=== PATIENT | male | born 1945 | race Caucasian/White ===

== ENCOUNTER 2016-10-14 20:07 | Inpatient (IN) | payer BC, MEDICARE ==
[2016-10-14] VITALS (8 sets, daily range): BP systolic 106–162; BP diastolic 59–104; PULSE 60–97; RESP 18–57; TEMP 97.7–97.9; O2SAT 97–100
[~2016-10-14] VITALS: Ht 180.3 cm; Wt 82.0 kg
[2016-10-14] MEDS ORDERED: SODIUM CHLORID 0.9% 500 ML INJ 500 ML IV ONE (20:30)
[2016-10-14] MEDS ORDERED: SODIUM CHLORIDE 0.9% FLUSH 5 ML FLUSH IVF PRN (20:30)
[2016-10-14] MEDS ORDERED: MORPHINE SULFATE 4 MG/ML INJ IV PUSH ONE (20:30)
[2016-10-14] MEDS ORDERED: ASPIRIN 325 MG TAB PO ONE (20:30)
[2016-10-14] MEDS ORDERED: VITA60003 PO (20:32)
[2016-10-14] MEDS ORDERED: B COTAB6 PO (20:32)
[2016-10-14] MEDS ORDERED: GABA600T PO (20:32)
[2016-10-14] MEDS ORDERED: NORT25CA PO (20:32)
[2016-10-14] MEDS ORDERED: ROSU40 PO (20:33)
[2016-10-14] MEDS: NITROGLYCERIN 0.4 MG SL 25 TABS/BTL SL SCH ×2 (20:35→20:36)
--- NOTE | 2016-10-14 20:50 | RADRPT ---
EXAM DATE/TIME: 10/14/2016 20:40 [place] COMPARISON: No previous studies available for comparison. INDICATIONS : Chest pain. MEDICAL HISTORY : None. SURGICAL HISTORY : Cardiac stent. ENCOUNTER: Initial ACUITY: 1 day PAIN SCORE: 3/10 LOCATION: chest FINDINGS: A single view of the chest demonstrates the lungs to be symmetrically aerated without evidence of mas s, infiltrate or effusion. The cardiomediastinal contours are unremarkable. Osseous structures are intact. CONCLUSION: No acute disease. Ehsan Recinos MD on October 14, 2016 at 20:49 Board Certified Radiologist. This report was verified electronically.
--- NOTE | 2016-10-14 20:55 | PD ---
HPI Chief Complaint: Chest Pain Time Seen by Provider: 20:18 Travel History International Travel<30 days: No Contact w/Intl Traveler<30days: No Traveled to known affect area: No History of Present Illness HPI 71-year-old male arrives to the ER with chest pain for the past 5 hours intermittently. Onset occurred while he was walking. Quality is likely GERD. In the ER severity is July 29. There is radiation to the right arm. Approximately 15 years prior he underwent catheterization and stent was placed. He took 5 aspirin prior to ER arrival and reports it was marginally helpful temporarily. Exertional component is reported. Rest PFSH Past Medical History High Cholesterol: Yes Patient Takes Glucophage: No Herniated Disk: Yes Medical other: Yes (high sugar diet controlled) Neurologic: Yes (peripheral neuropathy) Myocardial Infarction: Yes (2004) Past Surgical History Other Surgery: Yes (cardiac stent 10 yrs ago) Social History Alcohol Use: No Tobacco Use: No Allergies-Medications (Allergen,Severity, Reaction): Coded Allergies: No Known Allergies (Unverified , 10/14/16) Reported Meds & Prescriptions Reported Meds & Active Scripts Active Reported Crestor (Rosuvastatin Calcium) 40 Mg Tab 40 Mg PO DAILY Vitamin E (Vitamin E (Topical)) 100 Unit/Gm Cre 100 Mg PO B Complete (B-Complex W/Biotin & Folic Acid) 1 Tab 1 Tab PO DAILY Gabapentin 600 Mg Tab 600 Mg PO TID pt taking 400 day can take up to 4000 daily Nortriptyline (Nortriptyline HCl) 25 Mg Cap 25 Mg PO BID Review of Systems Except as stated in HPI: all other systems reviewed are Neg Physical Exam Narrative GENERAL: WNWD 71 yo M, NAD, speaking full sentences SKIN: Warm and dry. HEAD: Atraumatic. Normocephalic. EYES: Pupils equal and round. No scleral icterus. No injection or drainage. ENT: No nasal bleeding or discharge. Mucous membranes pink and moist. NECK: Trachea midline. No JVD. CARDIOVASCULAR: Regular rate and rhythm. RESPIRATORY: No accessory muscle use. Clear to auscultation. Breath sounds equal bilaterally. GASTROINTESTINAL: Abdomen soft, non-tender, nondistended. Hepatic and splenic margins not palpable. MUSCULOSKELETAL: Extremities without clubbing, cyanosis, or edema. No obvious deformities. NEUROLOGICAL: Awake and alert. No obvious cranial nerve deficits. Motor grossly within normal limits. Five out of 5 muscle strength in the arms and legs. Normal speech. PSYCHIATRIC: Appropriate mood and affect; insight and judgment normal. Data Data Last Documented VS Vital Signs Date Time Temp Pulse Resp B/P Pulse Ox O2 Delivery O2 Flow Rate FiO2 10/14/16 22:08 64 18 157/91 98 10/14/16 21:34 Nasal Cannula 3 10/14/16 20:16 97.7 Orders Electrocardiogram (10/14/16 20:18) Basic Metabolic Panel (Bmp) (10/14/16 20:18) Ckmb (Isoenzyme) Profile (10/14/16 20:18) Complete Blood Count With Diff (10/14/16 20:18) Magnesium (Mg) (10/14/16 20:18) Prothrombin Time / Inr (Pt) (10/14/16 20:18) Act Partial Throm Time (Ptt) (10/14/16 20:18) Troponin I (10/14/16 20:18) Chest, Single Ap (10/14/16 20:18) Ecg Monitoring (10/14/16 20:18) Bilateral Bp Monitoring (10/14/16 20:18) Iv Access Insert/Monitor (10/14/16 20:18) Oximetry (10/14/16 20:18) Oxygen Administration (10/14/16 20:18) Aspirin (Aspirin) (10/14/16 20:30) Morphine Inj (Morphine Inj) (10/14/16 20:30) Sodium Chloride 0.9% Flush (Ns Flush) (10/14/16 20:30) Nitroglycerin Sl (Nitrostat Sl) (10/14/16 20:30) Sodium Chlorid 0.9% 500 Ml Inj (Ns 500 M (10/14/16 20:30) Ondansetron Inj (Zofran Inj) (10/14/16 21:45) Al-Mag Hy-Si 40-40-4 Mg/Ml Liq (Mag-Al P (10/14/16 21:45) Lidocaine 2% Viscous (Xylocaine 2% Visco (10/14/16 21:45) CKMB (10/14/16 19:40) CKMB% (10/14/16 19:40) Heparin Infusion RONY.Q1H (10/14/16 22:28) Heparin Inj (Heparin Inj) (10/14/16 22:30) Heparin Inj (Heparin Inj) (10/15/16 04:30) Heparin Inj (Heparin Inj) (10/15/16 04:30) Heparin-D5w Inj (Heparin-D5w Inj) (10/14/16 22:30) Cbc No Diff, Includes Plts (10/17/16 06:00) Act Partial Throm Time (Ptt) (10/15/16 05:28) Occult Blood (Hemoccult) Stool (10/14/16 22:28) Tirofiban Bolus Inj (Aggrastat Bolus Inj (10/14/16 22:45) Tirofiban Infusion Inj (Aggrastat Infusi (10/14/16 22:40) ^ Notify Dr: Other (10/14/16 22:40) Complete Blood Count With Diff (10/16/16 06:00) Complete Blood Count With Diff (10/17/16 06:00) Complete Blood Count With Diff (10/15/16 02:40) Admit Order (Ed Use Only) (10/14/16 23:02) Labs Laboratory Tests Test 10/14/16 19:40 White Blood Count 9.9 TH/MM3 Red Blood Count 4.65 MIL/MM3 Hemoglobin 14.0 GM/DL Hematocrit 41.7 % Mean Corpuscular Volume 89.7 FL Mean Corpuscular Hemoglobin 30.0 PG Mean Corpuscular Hemoglobin 33.5 % Concent Red Cell Distribution Width 14.0 % Platelet Count 313 TH/MM3 Mean Platelet Volume 7.4 FL Neutrophils (%) (Auto) 63.3 % Lymphocytes (%) (Auto) 20.4 % Monocytes (%) (Auto) 11.7 % Eosinophils (%) (Auto) 4.1 % Basophils (%) (Auto) 0.5 % Neutrophils # (Auto) 6.3 TH/MM3 Lymphocytes # (Auto) 2.0 TH/MM3 Monocytes # (Auto) 1.2 TH/MM3 Eosinophils # (Auto) 0.4 TH/MM3 Basophils # (Auto) 0.0 TH/MM3 CBC Comment DIFF FINAL Differential Comment Prothrombin Time 10.6 SEC Prothromb Time International 1.0 RATIO Ratio Activated Partial 25.6 SEC Thromboplast Time Sodium Level 138 MEQ/L Potassium Level 4.2 MEQ/L Chloride Level 102 MEQ/L Carbon Dioxide Level 27.6 MEQ/L Anion Gap 8 MEQ/L Blood Urea Nitrogen 20 MG/DL Creatinine 1.26 MG/DL Estimat Glomerular Filtration 57 ML/MIN Rate Random Glucose 219 MG/DL Calcium Level 9.8 MG/DL Magnesium Level 2.3 MG/DL Total Creatine Kinase 115 U/L Creatine Kinase MB 2.7 NG/ML Troponin I 0.32 NG/ML MDM Medical Decision Making Medical Screen Exam Complete: Yes Emergency Medical Condition: Yes Differential Diagnosis NSTEMI, unstable angina, coronary vasospasm, PE, PTX, aortic dissection, pericarditis, myocarditis, endocarditis, PNA, esophageal disease, aneurysm, musculoskeletal etiologies, anxiety, cocaine/sympathomimetic abuse Narrative Course EKG reveals a sinus rhythm with ST depressions in the precordial leads and a morphology overall concerning for ischemia CBC & BMP Diagram 10/14/16 19:40 Troponin is 0.32 coags 10.6 / 1.0 / 25.6 Heparin drip started. Aggrastat drip started. Case discussed with Dr. Beyer of cardiology. Pt to stay in cardiac care center. d/w Dr Bishop. Diagnosis Primary Impression: NSTEMI (non-ST elevated myocardial infarction) Admitting Information Admitting Physician Requests: Admit Jaciel Vigil MD Oct 14, 2016 20:55
[2016-10-14 21:11] LABS: AUTOMATED NEUTROPHIL # 6.3 TH/MM3 (1.8-7.7); BASOPHIL % 0.5 % (0.0-2.0); EOSINOPHIL # 0.4 TH/MM3 (0-0.4); EOSINOPHIL % 4.1 % (0.0-4.0); HEMATOCRIT 41.7 % (39.0-51.0); HEMO FLAGS DIFF FINAL; LYMPH % 20.4 % (9.0-44.0); MEAN CELL VOLUME 89.7 FL (80.0-100.0); MEAN CORPUSCULAR HGB CONC 33.5 % (32.0-36.0); MONO % 11.7 % (0.0-8.0); NEUT % 63.3 % (16.0-70.0); PLATELET COUNT 313 TH/MM3 (150-450); RED BLOOD COUNT 4.65 MIL/MM3 (4.50-5.90); WHITE BLOOD COUNT 9.9 TH/MM3 (4.0-11.0)
[2016-10-14 21:23] LABS: APTT (PATIENT) 25.6 SEC (24.3-30.1); PROTHROMBIN TIME - PATIENT 10.6 SEC (9.8-11.6)
[2016-10-14] MEDS ORDERED: ALUMINUM/MAGNESIUM/SIMETH 30 ML CUP PO ONE (21:45)
[2016-10-14] MEDS ORDERED: LIDOCAINE VISCOUS 2% SOLN 15 ML UDC PO ONE (21:45)
[2016-10-14] MEDS ORDERED: ONDANSETRON HCL 4 MG/2 ML VIAL IVP ONE (21:45)
[2016-10-14 21:47] LABS: ANION GAP 8 MEQ/L (5-15); BICARBONATE 27.6 MEQ/L (21.0-32.0); BLOOD UREA NITROGEN 20 MG/DL (7-18); CHLORIDE 102 MEQ/L (98-107); GLOMERULAR FILTRATION RATE 57 ML/MIN (>89); MAGNESIUM 2.3 MG/DL (1.5-2.5); POTASSIUM 4.2 MEQ/L (3.5-5.1); SODIUM (NA) 138 MEQ/L (136-145)
[2016-10-14 21:52] LABS: CREATINE KINASE 115 U/L (39-308)
[2016-10-14 22:04] LABS: CKMB 2.7 NG/ML (0.5-3.6)
--- NOTE | 2016-10-14 22:23 | EKG ---
Date Performed: 10/14/2016 Time Performed: 20:16:13 PTAGE: 71 years EKG: Sinus rhythm PROBABLE INFERIOR MYOCARDIAL INFARCTION ST DEPRESSION, CONSIDER ISCHEMIA ABNORMAL ECG NO PREVIOUS TRACING DOCTOR: Lucas Beyer Interpretating Date/Time 10/14/2016 22:22:20
[2016-10-14] MEDS ORDERED: HEPARIN SODIUM - IV 10,000 UNITS/10 ML VIAL IV ONE (22:30)
[2016-10-14] MEDS ORDERED: HEPARIN-D5W INJ 250 ML IV SCH (22:30)
[2016-10-14] MEDS ORDERED: TIROFIBAN INFUSION INJ 250 ML IV SCH (22:40)
[2016-10-14] MEDS ORDERED: TIROFIBAN BOLUS IV ONE (22:45)
--- NOTE | 2016-10-14 23:26 | HHI.HP ---
HPI Service [facility] Primary Care Physician No Primary Care Physician Admission Diagnosis NSTEMI Diagnoses: (1) NSTEMI (non-ST elevated myocardial infarction) Diagnosis: Principal (2) Dehydration Diagnosis: Principal (3) HTN (hypertension) Diagnosis: Principal (4) DM (diabetes mellitus) Diagnosis: Principal Travel History International Travel<30 Days: No Contact w/Intl Traveler <30 Da: No Traveled to Known Affected Are: No History of Present Illness This is a 71-year-old male with a PMH of Hyperlipidemia, CAD s/p Stent 2005, Peripheral Neuropathy and DM who is brought to the ER with acute onset of chest pain during his afternoon walk. States he's had intermittent chest pain for approx 1-2 months, however chest pain today was more intense. On arrival, BP 161/85, HR 88, O2 sat 99% on RA, Afebrile. CBC essentially unremarkable. BUN 20, GFR 57, BS 219. Troponin 0.32, EKG with no acute changes. CXR with no acute findings. Dr. Beyer consulted by ER physician, recommended Heparin and Aggrastat gtt and will eval in am. Pt currently chest pain free. Review of Systems Except as stated in HPI: all other systems reviewed are Neg ROS: 14 point review of systems otherwise negative. Past Family Social History Past Medical History PMH: Hyperlipidemia, CAD s/p Stent 2005, Peripheral Neuropathy and DM Past Surgical History PAST SURGICAL HISTORY: Cardiac Stent Allergies: Coded Allergies: No Known Allergies (Unverified , 10/14/16) Family History PAST FAMILY HISTORY: Reviewed. No h/o DM or CAD Social History PAST SOCIAL HISTORY: Negative for alcohol, tobacco or drugs. Physical Exam Vital Signs Vital Signs Date Time Temp Pulse Resp B/P Pulse Ox O2 Delivery O2 Flow Rate FiO2 10/14/16 22:08 64 18 157/91 98 10/14/16 21:34 100 Nasal Cannula 3 10/14/16 21:33 60 18 134/81 100 10/14/16 20:40 98 Nasal Cannula 3 10/14/16 20:39 67 18 106/59 98 10/14/16 20:33 97 57 159/91 97 Nasal Cannula 3 10/14/16 20:20 100 Nasal Cannula 3 10/14/16 20:16 97.7 82 18 162/104 99 10/14/16 20:08 97.9 88 18 161/85 99 Physical Exam PE: GENERAL: Elderly male in no acute distress. HEENT: PERRLA, EOMI. No scleral icterus or conjunctival pallor. No lid lag or facial droop. CARDIOVASCULAR: Regular rate and rhythm. No obvious murmurs to auscultation. No chest tenderness to palpation. RESPIRATORY: No obvious rhonchi or wheezing. Clear to auscultation. Breath sounds equal bilaterally. GASTROINTESTINAL: Abdomen soft, non-tender, nondistended. BS normal. MUSCULOSKELETAL: Extremities without clubbing, cyanosis, or edema. No obvious deformities. NEUROLOGICAL: Awake, alert and oriented x4. No focal neurologic deficits. Moving both upper and lower extremities spontaneously. Laboratory Laboratory Tests Test 10/14/16 19:40 White Blood Count 9.9 Red Blood Count 4.65 Hemoglobin 14.0 Hematocrit 41.7 Mean Corpuscular Volume 89.7 Mean Corpuscular Hemoglobin 30.0 Mean Corpuscular Hemoglobin 33.5 Concent Red Cell Distribution Width 14.0 Platelet Count 313 Mean Platelet Volume 7.4 Neutrophils (%) (Auto) 63.3 Lymphocytes (%) (Auto) 20.4 Monocytes (%) (Auto) 11.7 Eosinophils (%) (Auto) 4.1 Basophils (%) (Auto) 0.5 Neutrophils # (Auto) 6.3 Lymphocytes # (Auto) 2.0 Monocytes # (Auto) 1.2 Eosinophils # (Auto) 0.4 Basophils # (Auto) 0.0 CBC Comment DIFF FINAL Differential Comment Prothrombin Time 10.6 Prothromb Time International 1.0 Ratio Activated Partial 25.6 Thromboplast Time Sodium Level 138 Potassium Level 4.2 Chloride Level 102 Carbon Dioxide Level 27.6 Anion Gap 8 Blood Urea Nitrogen 20 Creatinine 1.26 Estimat Glomerular Filtration 57 Rate Random Glucose 219 Calcium Level 9.8 Magnesium Level 2.3 Total Creatine Kinase 115 Creatine Kinase MB 2.7 Troponin I 0.32 Result Diagram: 10/14/16193910/14/161939 Assessment and Plan Problem List: (1) NSTEMI (non-ST elevated myocardial infarction) ICD Code: I21.4 Status: Acute (2) Dehydration ICD Code: E86.0 Status: Acute (3) HTN (hypertension) ICD Code: I10 Status: Acute (4) DM (diabetes mellitus) ICD Code: E11.9 Status: Acute Assessment and Plan A/P: 1. NSTEMI: Acute onset of chest pain while walking, c/o intermittent chest pain x1-2 months. Initial trop 0.32, EKG w/ no acute ischemia. Dr. Beyer consulted by ER physician, recommended Heparin/Aggrastat gtt-started in ER. Admit to [facility], telemetry, check serial cardiac enzymes. NTG/Morphine as needed. 2. Dehydration: GFR 57, BUN 20, no previous labs for comparison. IVF, repeat labs in am. 3. HTN: BP 150's systolic, no h/o HTN, start low-dose Metoprolol. Monitor BP. 4. DM: Sliding scale w/ Accu-Cheks. Check Hgb A1c. 5. DVT Prophylaxis: On Heparin/Aggrastat gtt 6. Social work for d/c planning as needed. 7. Case discussed w/ ER physician at length. Physician Certification 2 Midnight Certification Type: Admission for Inpatient Services Order for Inpatient Services The services are ordered in accordance with Medicare regulations or non- Medicare payer requirements, as applicable. In the case of services not specified as inpatient-only, they are appropriately provided as inpatient services in accordance with the 2-midnight benchmark. Estimated LOS (days): 2 days is the estimated time the patient will need to remain in the hospital, assuming treatment plan goals are met and no additional complications. Post-Hospital Plan: Not yet determined Fatoumata Bishop MD Oct 14, 2016 23:26
[2016-10-14] MEDS ORDERED: ACETAMINOPHEN 325 MG TAB PO PRN (23:30)
[2016-10-14] MEDS ORDERED: GLUCAGON 1 MG/ML VIAL OTHER PRN (23:30)
[2016-10-14] MEDS ORDERED: BISACODYL 10 MG SUPP PR PRN (23:30)
[2016-10-14] MEDS ORDERED: MORPHINE SULFATE 4 MG/ML INJ IV PRN (23:30)
[2016-10-14] MEDS ORDERED: SODIUM CHLORIDE 0.9% FLUSH 5 ML FLUSH FLUSH PRN (23:30)
[2016-10-14] MEDS ORDERED: ONDANSETRON HCL 4 MG/2 ML VIAL IVP PRN (23:30)
[2016-10-14] MEDS ORDERED: DEXTROSE 50% IN WATER 50 ML VIAL(D50) IV PUSH PRN (23:30)
[2016-10-14] MEDS: SODIUM CHLOR 0.9% 1000 ML INJ 1,000 ML IV SCH (23:41)
[2016-10-15] VITALS (16 sets, daily range): BP systolic 100–144; BP diastolic 57–92; PULSE 44–92; RESP 18–25; TEMP 97.5–98.4; O2SAT 93–99
[2016-10-15] MEDS: ACETAMINOPHEN/HYDROcodone 325 MG/5 MG TAB PO PRN (02:14)
[2016-10-15] MEDS ORDERED: PILL SPLITTER OTHER PRN (02:30)
[2016-10-15 04:09] LABS: AUTOMATED NEUTROPHIL # 7.5 TH/MM3 (1.8-7.7); BASOPHIL % 0.4 % (0.0-2.0); EOSINOPHIL # 0.3 TH/MM3 (0-0.4); EOSINOPHIL % 2.6 % (0.0-4.0); HEMO FLAGS DIFF FINAL; LYMPH % 20.2 % (9.0-44.0); LYMPHOCYTE # 2.3 TH/MM3 (1.0-4.8); MEAN CELL VOLUME 92.1 FL (80.0-100.0); MEAN CORPUSCULAR HGB CONC 32.6 % (32.0-36.0); MONO % 10.1 % (0.0-8.0); NEUT % 66.7 % (16.0-70.0); PLATELET COUNT 272 TH/MM3 (150-450); RED BLOOD COUNT 4.67 MIL/MM3 (4.50-5.90); RED CELL DISTRIBUTION WIDTH 14.1 % (11.6-17.2); WHITE BLOOD COUNT 11.3 TH/MM3 (4.0-11.0)
[2016-10-15] MEDS ORDERED: HEPARIN SODIUM - IV 10,000 UNITS/10 ML VIAL IV PRN ×2 (04:30)
[2016-10-15 04:51] LABS: APTT (PATIENT) 52.3 SEC (24.3-30.1)
[2016-10-15] MEDS ORDERED: NITROGLYCERIN 0.4 MG SL 25 TABS/BTL SL ONE (06:16)
[2016-10-15] MEDS: NITROGLYCERIN 2% OINT 1 GM PACKET TOPICAL SCH ×3 (06:30→17:14)
[2016-10-15] MEDS ORDERED: NITROGLYCERIN 2% OINT 1 GM PACKET TOPICAL PRN (06:30)
[2016-10-15] MEDS ORDERED: ALPRAZolam 0.25 MG TAB PO PRN (06:30)
[2016-10-15] MEDS: LORazepam 1 MG TAB PO PRN (06:41)
[2016-10-15] MEDS: INSULIN ASPART SUPPLEMENTAL SCALE SQ SCH ×4 (07:00→20:55)
[2016-10-15] MEDS ORDERED: SODIUM CHLORIDE 0.9% FLUSH 5 ML FLUSH FLUSH SCH (09:00)
--- NOTE | 2016-10-15 09:08 | HHI.PR ---
Subjective Remarks Follow-up non-ST elevation [place] 10/15/16-patient seen and examined, continue to experience chest pain and rated 3-4/10 in intensity; This a.m., however patient is refusing morphine.He Denies any shortness of breath Objective Vitals Vital Signs Date Time Temp Pulse Resp B/P Pulse Ox O2 Delivery O2 Flow Rate FiO2 10/15/16 07:31 18 10/15/16 07:31 18 10/15/16 05:00 98.4 76 20 113/71 99 10/15/16 00:02 98.4 72 20 144/92 99 10/14/16 23:42 73 18 144/96 98 Nasal Cannula 3 10/14/16 22:08 64 18 157/91 98 10/14/16 21:34 100 Nasal Cannula 3 10/14/16 21:33 60 18 134/81 100 10/14/16 20:40 98 Nasal Cannula 3 10/14/16 20:39 67 18 106/59 98 10/14/16 20:33 97 57 159/91 97 Nasal Cannula 3 10/14/16 20:20 100 Nasal Cannula 3 10/14/16 20:16 97.7 82 18 162/104 99 10/14/16 20:08 97.9 88 18 161/85 99 Result Diagram: 10/15/163 10/14/161939 Imaging Last Impressions Chest X-Ray 10/14/162017 Signed Impressions: Service Date/Time: Friday, October 14, 2016 20:40 - CONCLUSION: No acute disease. Ehsan Recinos MD Objective Remarks GENERAL: NAD SKIN: Warm and dry. HEAD: Normocephalic. EYES: No scleral icterus. No injection or drainage. NECK: Supple, trachea midline. No JVD or lymphadenopathy. CARDIOVASCULAR: Regular rate and rhythm without murmurs, gallops, or rubs. RESPIRATORY: Breath sounds equal bilaterally. No accessory muscle use. GASTROINTESTINAL: Abdomen soft, non-tender, nondistended. MUSCULOSKELETAL: No cyanosis, or edema. BACK: Nontender without obvious deformity. No CVA tenderness. A/P Problem List: (1) NSTEMI (non-ST elevated myocardial infarction) ICD Code: I21.4 Status: Acute (2) Dehydration ICD Code: E86.0 Status: Acute (3) HTN (hypertension) ICD Code: I10 Status: Acute (4) DM (diabetes mellitus) ICD Code: E11.9 Status: Acute Assessment and Plan 71-year-old male with 1. NSTEMI: Patient with previous stents placement, Initial trop 0.32 however second set was 4.04, EKG w/ no acute ischemia. Dr. Beyer consulted by ER physician, recommended Heparin/Aggrastat gtt-started in ER. Plan for left heart catheterization with possible PCI. Statin/BB/NTG/Morphine as needed. Check lipid profile and 2-D echo pending 2. Dehydration: GFR 57, BUN 20, no previous labs for comparison. IVF, repeat labs in am. 3. HTN: BP 150's systolic, no h/o HTN, continue low-dose Metoprolol. Monitor BP. 4. DM: Sliding scale w/ Accu-Cheks. Hgb A1c pending. 5. DVT Prophylaxis: On Heparin/Aggrastat gtt Ehsan Carpenter MD Oct 15, 2016 09:08
[2016-10-15] MEDS: METOPROLOL TARTRATE 25 MG TAB PO SCH ×2 (09:12→20:52)
[2016-10-15] MEDS: SODIUM CHLOR 0.9% 1000 ML INJ 1,000 ML IV SCH ×2 (09:12→19:17)
--- NOTE | 2016-10-15 09:13 | EKG ---
Date Performed: 10/15/2016 Time Performed: 05:40:58 PTAGE: 71 years EKG: Sinus bradycardia Prolonged QT interval Inferior infarct - age undetermined - possibly rece nt Ant/septal and lateral ST-T changes may be due to myocardial ischemia Abnormal ECG PREVIOUS TRACING : 10/14/2016 20.16 Compared to previous tracing, anterolateral ST abnormalitie s have improved, inferior infarct pattern is now more pronounced. DOCTOR: Lucas Beyer Interpretating Date/Time 10/15/2016 09:11:06
--- NOTE | 2016-10-15 11:35 | EKG ---
Date Performed: 10/15/2016 Time Performed: 10:15:02 PTAGE: 71 years EKG: Sinus rhythm with PVC(s). Inferior infarct - age undetermined Consider precordial lead misplacement Anterolateral ST-T changes may be due to myocardial ischemia Abnormal ECG PREVIOUS TRACING : 10/15/2016 05.40 No significant change from previous tracing noted. DOCTOR: Lucas Beyer Interpretating Date/Time 10/15/2016 11:33:27
[2016-10-15 11:47] LABS: BASOPHIL % 0.3 % (0.0-2.0); EOSINOPHIL % 0.4 % (0.0-4.0); HEMATOCRIT 37.3 % (39.0-51.0); HEMO FLAGS DIFF FINAL; LYMPHOCYTE # 1.3 TH/MM3 (1.0-4.8); MEAN CELL VOLUME 90.7 FL (80.0-100.0); MEAN CORPUSCULAR HEMOGLOBIN 29.8 PG (27.0-34.0); MEAN CORPUSCULAR HGB CONC 32.9 % (32.0-36.0); MONO % 9.8 % (0.0-8.0); NEUT % 75.5 % (16.0-70.0); PLATELET COUNT 274 TH/MM3 (150-450); RED BLOOD COUNT 4.11 MIL/MM3 (4.50-5.90); RED CELL DISTRIBUTION WIDTH 14.1 % (11.6-17.2); WHITE BLOOD COUNT 9.3 TH/MM3 (4.0-11.0)
[2016-10-15] MEDS ORDERED: HEPARIN-NS/PF INJ 500 ML ONE ×2 (12:05→12:12)
[2016-10-15] MEDS ORDERED: IOHEXOL 350 MG/ML 100 ML BTL (for Cath Lab) OTHER ONE (12:06)
[2016-10-15 12:08] LABS: ALT (GPT) 34 U/L (12-78); ANION GAP 8 MEQ/L (5-15); AST (GOT) 171 U/L (15-37); BICARBONATE 23.7 MEQ/L (21.0-32.0); BLOOD UREA NITROGEN 13 MG/DL (7-18); CHLORIDE 108 MEQ/L (98-107); GLOMERULAR FILTRATION RATE 83 ML/MIN (>89); SODIUM (NA) 140 MEQ/L (136-145)
[2016-10-15 12:11] LABS: HDL CHOLESTEROL 55.2 MG/DL (40.0-60.0)
[2016-10-15] MEDS ORDERED: NITROGLYCERIN INJ 5 ML ONE (12:13)
[2016-10-15] MEDS ORDERED: VERAPAMIL HCL 5 MG/2 ML VIAL ONE (12:13)
[2016-10-15] MEDS ORDERED: MIDAZOLAM HCL 2 MG/2 ML VIAL ONE (12:13)
[2016-10-15] MEDS ORDERED: HEPARIN SODIUM - IV 10,000 UNITS/10 ML VIAL ONE ×2 (12:13→16:45)
[2016-10-15 12:14] LABS: ALKALINE PHOSPHATASE 48 U/L (45-117); TOTAL BILIRUBIN ADULT 0.7 MG/DL (0.2-1.0)
[2016-10-15] MEDS ORDERED: NITROGLYCERIN 1000 MCG/5 ML VIAL OTHER ONE (12:27)
--- NOTE | 2016-10-15 12:33 | MB ---
cc: KONRAD MERCER DATE OF CONSULTATION: 10/15/2016 REASON FOR CONSULTATION: Unstable angina, acute non-ST elevation myocardial infarction. HISTORY OF PRESENT ILLNESS The patient is a 71-year-old white male visiting from [place], with a history of coronary artery disease status post percutaneous coronary intervention 2004, diabetes, hyperlipidemia, diabetic peripheral neuropathy, who was in his usual state of health up until yesterday evening when he began to experience intermittent episodes of substernal chest discomfort described as "indigestion and heartburn." The episodes would be precipitated by exertion and relieved by rest, lasting up to a few minutes. Sometimes the chest pain would be so severe that he would have to go down to the ground on one knee. Initial troponin levels were found to be abnormal. He has had intermittent episodes of chest discomfort throughout the night and has "1 out of 10" chest discomfort at the present time. He denies shortness of breath, nausea, diaphoresis, pleurisy, paroxysmal nocturnal dyspnea, pedal edema, palpitations, syncope, near-syncope. PAST MEDICAL HISTORY 1. Coronary artery disease status post coronary stenting 2004. 2. Diabetes. 3. Hyperlipidemia. 4. Diabetic peripheral neuropathy. CARDIAC MEDICATIONS AT HOME: Crestor 40 mg daily. 1. Here in the hospital he has been placed on metoprolol 12.5 milligrams p.o. q12 hours. 2. Nitroglycerin paste one inch q6 hours. 3. Heparin drip. 4. Aggrastat drip. ALLERGIES NO KNOWN DRUG ALLERGIES. FAMILY HISTORY Noncontributory. SOCIAL HISTORY The patient quit smoking about 10 years ago, he denies drug or alcohol abuse. REVIEW OF SYSTEMS: As in the history of present illness otherwise negative or noncontributory. He also denies headache, abdominal pain, melena, dyspepsia, bright red blood per rectum, fevers. PHYSICAL EXAMINATION: On physical examination his blood pressure 113/70 with a pulse of 69, respirations 18. In general he is a well-developed, well-nourished white male in no acute distress. HEENT examination: Jugular venous pressure is normal. Carotid pulses are 2+ bilaterally and without bruits. Examination of the chest reveals clear lung perdue. Cardiac examination: He has a regular rhythm and rate without S3-S4 or murmur. Abdomen: On abdominal examination he has a soft, nontender abdomen. Bowel sounds are present. There is no definite hepatosplenomegaly. Examination of extremities reveals no clubbing, cyanosis or edema. Peripheral pulses are normal throughout. EKG from 10/14/2016 at 08:16 p.m. shows possible inferior myocardial infarction, diffuse ST depression consider ischemia. LABORATORY DATA: WBC 11.3, hemoglobin 14.0, platelets 272, potassium 4.2, BUN 20, creatinine 1.26, troponin 4.04, glucose 219, INR 1.0. Chest x-ray: Shows no acute disease. IMPRESSION Acute non-ST elevation myocardial infarction in this 71-year-old white male with a history of coronary artery disease, diabetes, hyperlipidemia. Troponin levels are consistent with acute myocardial infarction. Initial EKG does show ST depression without evidence for ST elevation. Subsequent EKGs actually have improved although he continues to have ongoing chest discomfort, despite therapy with nitrates, beta-oj, heparin and Aggrastat drip. So far there has been no evidence for arrhythmia or congestive heart failure. Because of the instability of his symptoms, I have recommended he undergo cardiac catheterization now. The risks of this procedure including but not limited to , myocardial infarction, stroke, arrhythmia, bleeding, infection, renal failure have been outlined to the patient. He agrees to proceed. RECOMMENDATIONS: 1. Cardiac catheterization now. 2. Continue beta-oj therapy and add an EARL inhibitor as blood pressures tolerate. 3. Check a fasting lipid profile. MD MELISSA Kenyon/TRACY /11:15 AM /12:23 PM [place]
[2016-10-15] MEDS ORDERED: MIDAZOLAM HCL 2 MG/2 ML VIAL IV PUSH ONE (12:35)
[2016-10-15] MEDS ORDERED: SODIUM CHLORIDE 0.9% FLUSH 5 ML FLUSH IVF PRN (13:15)
[2016-10-15] MEDS ORDERED: MISC INFORMATION XX ONE (13:15)
--- NOTE | 2016-10-15 13:53 | MA ---
cc: JOSE MERCER M.D. DATE: 10/15/2016. PROCEDURE PERFORMED: Left heart catheterization, selective coronary angiography, left ventriculography. PROCEDURE NOTE: The patient was brought to the cardiac catheterization laboratory in a fasting state after having signed informed consent. The right radial region was prepped and draped as per policy and anesthetized with 1% lidocaine. Arterial access was obtained via the right radial artery and a 6-[place] sheath placed. Coronary arteriography was performed using a 6-[place] catheter to engage the right coronary and a 6-[place] Jacob left 3.5 to engage the left main. Left ventriculography was done using a multipurpose catheter. There were no apparent immediate complications. A TR band was applied to his right wrist at the end of the case to achieve good hemostasis. HEMODYNAMIC RESULTS: Left ventricle 107 with an end-diastolic pressure of 17. Aorta 100/55 with a mean of 73. There was no significant transvalvular aortic gradient on pullback of the pigtail catheter. CORONARY ARTERIOGRAPHY: The left main has somewhat eccentric 40% to 50% distal stenosis. The left anterior descending demonstrates a stent in its very proximal portion. There is diffuse re-stenosis of the stent, up to 85% at its proximal edge and 85% at its distal edge. The mid left anterior descending also has diffuse disease, probably up to 25% severity. The distal left anterior descending has overall mild luminal irregularities. The mid left anterior descending gives rise to tiny diagonals. One diagonal, which is very small, has 60% to 70% tubular stenosis proximally. The left circumflex is a medium-sized vessel giving rise to a medium-sized obtuse marginal. There is diffuse ostial to proximal left circumflex disease resulting in up to 50% stenosis. There is a fairly large ramus intermedius which has 95% to 99% proximal stenosis. The right coronary artery is a diffusely diseased dominant vessel. There is up to 90% proximal stenosis, 40% mid disease and then 95% to 99% distal stenosis prior to the takeoff of the posterior descending artery which is a relatively small vessel with minimal luminal irregularities. There is a small posterolateral branch arising from the distal right coronary which may be totally occluded. LEFT VENTRICULOGRAPHY: Hand contrast injection of the left ventricle reveals mild to moderate basal inferior hypokinesis. Estimated ejection fraction is 50%. CONCLUSIONS: 1. Moderate left main and severe three-vessel coronary artery disease. 2. Low-normal left ventricular systolic function with estimated ejection fraction of 50%. DISCUSSION: The patient will be referred for bypass surgery. Bypass grafts could be placed to the posterior descending artery, obtuse marginal, left anterior descending, ramus. MD MELISSA Kenyon/CHRISTINA /12:59 PM /1:46 PM MTDD
[2016-10-15 14:03] LABS: APTT (PATIENT) 67.2 SEC (24.3-30.1)
[2016-10-15] MEDS ORDERED: VERAPAMIL HCL 5 MG/2 ML VIAL OTHER ONE (14:45)
[2016-10-15] MEDS: SODIUM CHLORIDE 0.9% FLUSH 5 ML FLUSH IVF SCH (20:54)
[2016-10-15 23:10] LABS: APTT (PATIENT) 37.1 SEC (24.3-30.1)
[2016-10-15] MEDS ORDERED: ALUMINUM/MAGNESIUM/SIMETH 30 ML CUP PO ONE (23:30)
[2016-10-15] MEDS: PANTOPRAZOLE SOD 40 MG DELAYED RELEASE TAB PO SCH (23:30)
[2016-10-16] VITALS (27 sets, daily range): BP systolic 91–110; BP diastolic 55–72; PULSE 63–105; RESP 15–19; TEMP 97.8–100.4; O2SAT 92–93
[2016-10-16 05:46] LABS: AUTOMATED NEUTROPHIL # 9.5 TH/MM3 (1.8-7.7); BASOPHIL % 0.2 % (0.0-2.0); EOSINOPHIL % 0.2 % (0.0-4.0); HEMATOCRIT 35.5 % (39.0-51.0); HEMO FLAGS DIFF FINAL; LYMPH % 8.7 % (9.0-44.0); MEAN CELL VOLUME 89.5 FL (80.0-100.0); MEAN CORPUSCULAR HEMOGLOBIN 30.2 PG (27.0-34.0); MEAN CORPUSCULAR HGB CONC 33.7 % (32.0-36.0); MONO % 11.2 % (0.0-8.0); NEUT % 79.7 % (16.0-70.0); PLATELET COUNT 260 TH/MM3 (150-450); RED BLOOD COUNT 3.97 MIL/MM3 (4.50-5.90); RED CELL DISTRIBUTION WIDTH 13.9 % (11.6-17.2); WHITE BLOOD COUNT 11.9 TH/MM3 (4.0-11.0)
[2016-10-16 05:53] LABS: APTT (PATIENT) 48.8 SEC (24.3-30.1)
[2016-10-16 06:09] LABS: BICARBONATE 21.4 MEQ/L (21.0-32.0); POTASSIUM 3.5 MEQ/L (3.5-5.1)
[2016-10-16 06:11] LABS: HDL CHOLESTEROL 57.4 MG/DL (40.0-60.0)
[2016-10-16] MEDS: NITROGLYCERIN 2% OINT 1 GM PACKET TOPICAL SCH ×5 (06:21→23:43)
[2016-10-16] MEDS: PANTOPRAZOLE SOD 40 MG DELAYED RELEASE TAB PO SCH (06:21)
[2016-10-16] MEDS: SODIUM CHLOR 0.9% 1000 ML INJ 1,000 ML IV SCH (06:22)
[2016-10-16] MEDS: INSULIN ASPART SUPPLEMENTAL SCALE SQ SCH ×4 (06:52→21:43)
--- NOTE | 2016-10-16 08:26 | HHI.PR ---
Subjective Remarks Follow-up non-ST elevation [place] 10/15/16-patient seen and examined, continue to experience chest pain and rated 3-4/10 in intensity; This a.m., however patient is refusing morphine.He Denies any shortness of breath 10/16/16-patient seen and examined, had heart catheterization with finding of three-vessel disease for which CT is has been consulted. Complains of phlegm/ nonproductive cough however afebrile Objective Vitals Vital Signs Date Time Temp Pulse Resp B/P Pulse Ox O2 Delivery O2 Flow Rate FiO2 10/16/16 06:00 86 10/16/16 05:00 83 10/16/16 04:00 91 10/16/16 03:00 98.9 75 15 105/72 93 10/16/16 03:00 77 10/16/16 02:00 83 10/16/16 01:00 78 10/16/16 00:00 87 10/15/16 23:00 98.2 89 25 100/61 93 10/15/16 23:00 92 10/15/16 22:00 82 10/15/16 19:05 98.1 76 18 106/57 95 10/15/16 18:03 58 10/15/16 17:09 65 10/15/16 16:10 62 10/15/16 15:13 51 10/15/16 15:13 97.5 49 18 110/69 96 10/15/16 14:05 44 10/15/16 13:19 55 10/15/16 12:00 48 10/15/16 11:58 97.5 60 18 101/60 97 10/15/16 11:58 52 10/15/16 10:29 69 10/15/16 09:00 60 10/15/16 08:45 97.9 75 18 113/71 97 10/15/16 08:45 61 I/O 10/15/16 10/15/16 10/15/16 10/16/16 10/16/16 10/16/16 07:00 15:00 23:00 07:00 15:00 23:00 Intake Total 640 ml 1839 ml Output Total 450 ml 850 ml Balance 190 ml 989 ml Intake Oral 240 ml 480 ml IV Total 400 ml 1359 ml Output Urine Total 450 ml 850 ml # Voids 1 # Bowel Movements 0 0 Result Diagram: 10/16/16 0520 10/16/16 0520 Imaging Last Impressions Chest X-Ray 10/14/162017 Signed Impressions: Service Date/Time: Friday, October 14, 2016 20:40 - CONCLUSION: No acute disease. Ehsan Recinos MD Objective Remarks GENERAL: NAD SKIN: Warm and dry. HEAD: Normocephalic. EYES: No scleral icterus. No injection or drainage. NECK: Supple, trachea midline. No JVD or lymphadenopathy. CARDIOVASCULAR: Regular rate and rhythm without murmurs, gallops, or rubs. RESPIRATORY: Breath sounds equal bilaterally. No accessory muscle use. GASTROINTESTINAL: Abdomen soft, non-tender, nondistended. MUSCULOSKELETAL: No cyanosis, or edema. BACK: Nontender without obvious deformity. No CVA tenderness. A/P Problem List: (1) NSTEMI (non-ST elevated myocardial infarction) ICD Code: I21.4 Status: Acute (2) Dehydration ICD Code: E86.0 Status: Acute (3) HTN (hypertension) ICD Code: I10 Status: Acute (4) DM (diabetes mellitus) ICD Code: E11.9 Status: Acute Assessment and Plan 71-year-old male with 1. Moderate left main and severe three-vessel coronary artery disease: CTS has been consulted for evaluation for CABG. Continue with heparin drip 2. NSTEMI: Patient with previous stents placement, patient is status post left heart catheterization with finding of Moderate left main and severe three- vessel coronary artery disease. Heparin drip/Vasotec/Statin/BB/NTG/Morphine as needed. 3. Dehydration: Resolved 4. HTN: continue low-dose Metoprolol. Monitor BP. 5. DM: Sliding scale w/ Accu-Cheks. Hgb A1c pending. 6. DVT Prophylaxis: On Heparin gtt Ehsan Carpenter MD Oct 16, 2016 08:26 Ehsan Carpenter MD Oct 16, 2016 08:26
[2016-10-16] MEDS ORDERED: RESP: ALBUTEROL 2.5 MG/IPRATROPIUM 0.5 MG NEB (PRN) NEB ×2 (08:30→11:00)
[2016-10-16] MEDS: SODIUM CHLORIDE 0.9% FLUSH 5 ML FLUSH IVF SCH ×2 (09:00→21:43)
[2016-10-16] MEDS: METOPROLOL TARTRATE 25 MG TAB PO SCH ×2 (09:00→21:00)
[2016-10-16] MEDS ORDERED: ENALAPRIL MALEATE 2.5 MG TAB PO SCH (09:00)
--- NOTE | 2016-10-16 09:43 | PD.CARD.PN ---
Subjective Subjective Remarks No angina. CP with cough. Mildly dyspneic. Slept poorly. No dizziness, palpitations. Objective Medications Item Value Date Time Enalapril Maleate 2.5 mg 10/16/16 0900 (Vasotec) DAILY/PO Heparin Sodium/ 250 ml @ 0 mls/hr 10/15/16 1600 Dextrose TITRATE/IV Metoprolol 12.5 mg 10/15/16 0900 Tartrate Q12HR/PO 10/15/162051 (Lopressor) Nitroglycerin 1 inch 10/15/16 0630 (Nitroglycerin Q6HR/TOPICAL 10/16/16 0621 2% Oint) Vital Signs / I&O Vital Signs Date Time Temp Pulse Resp B/P Pulse Ox O2 Delivery O2 Flow Rate FiO2 10/16/16 07:30 98.1 97 18 107/67 92 10/16/16 06:00 86 10/16/16 05:00 83 10/16/16 04:00 91 10/16/16 03:00 98.9 75 15 105/72 93 10/16/16 03:00 77 10/16/16 02:00 83 10/16/16 01:00 78 10/16/16 00:00 87 10/15/16 23:00 98.2 89 25 100/61 93 10/15/16 23:00 92 10/15/16 22:00 82 10/15/16 19:05 98.1 76 18 106/57 95 10/15/16 18:03 58 10/15/16 17:09 65 10/15/16 16:10 62 10/15/16 15:13 51 10/15/16 15:13 97.5 49 18 110/69 96 10/15/16 14:05 44 10/15/16 13:19 55 10/15/16 12:00 48 10/15/16 11:58 97.5 60 18 101/60 97 10/15/16 11:58 52 10/15/16 10:29 69 I/O 10/15/16 10/15/16 10/15/16 10/16/16 10/16/16 10/16/16 07:00 15:00 23:00 07:00 15:00 23:00 Intake Total 640 ml 1839 ml Output Total 450 ml 850 ml Balance 190 ml 989 ml Intake Oral 240 ml 480 ml IV Total 400 ml 1359 ml Output Urine Total 450 ml 850 ml # Voids 1 # Bowel Movements 0 0 Physical Exam GENERAL: Well developed, well nourished. No acute distress. HEENT: Jugular venous pressure is normal. CHEST: Lungs clear to auscultation bilaterally. Unlabored respiratory effort. CARDIAC: Regular rate and rhythm without S3, S4, or murmur. ABDOMEN: Soft, nontender, no hepatosplenomegaly. Bowel sounds present. EXTREMITIES: No clubbing, cyanosis, or edema. Right radial arteriotomy site stable, no hematoma. Laboratory Laboratory Tests Test 10/15/16 10/15/16 10/15/16 10/16/16 11:20 13:44 20:20 05:20 White Blood Count 9.3 TH/MM3 11.9 TH/MM3 Red Blood Count 4.11 MIL/MM3 3.97 MIL/MM3 Hemoglobin 12.3 GM/DL 12.0 GM/DL Hematocrit 37.3 % 35.5 % Mean Corpuscular Volume 90.7 FL 89.5 FL Mean Corpuscular Hemoglobin 29.8 PG 30.2 PG Mean Corpuscular Hemoglobin 32.9 % 33.7 % Concent Red Cell Distribution Width 14.1 % 13.9 % Platelet Count 274 TH/MM3 260 TH/MM3 Mean Platelet Volume 7.0 FL 7.3 FL Neutrophils (%) (Auto) 75.5 % 79.7 % Lymphocytes (%) (Auto) 14.0 % 8.7 % Monocytes (%) (Auto) 9.8 % 11.2 % Eosinophils (%) (Auto) 0.4 % 0.2 % Basophils (%) (Auto) 0.3 % 0.2 % Neutrophils # (Auto) 7.0 TH/MM3 9.5 TH/MM3 Lymphocytes # (Auto) 1.3 TH/MM3 1.0 TH/MM3 Monocytes # (Auto) 0.9 TH/MM3 1.3 TH/MM3 Eosinophils # (Auto) 0.0 TH/MM3 0.0 TH/MM3 Basophils # (Auto) 0.0 TH/MM3 0.0 TH/MM3 CBC Comment DIFF FINAL DIFF FINAL Differential Comment Sodium Level 140 MEQ/L 138 MEQ/L Potassium Level 4.0 MEQ/L 3.5 MEQ/L Chloride Level 108 MEQ/L 106 MEQ/L Carbon Dioxide Level 23.7 MEQ/L 21.4 MEQ/L Anion Gap 8 MEQ/L 11 MEQ/L Blood Urea Nitrogen 13 MG/DL 11 MG/DL Creatinine 0.90 MG/DL 0.93 MG/DL Estimat Glomerular Filtration 83 ML/MIN 80 ML/MIN Rate Random Glucose 214 MG/DL 202 MG/DL Calcium Level 8.7 MG/DL 8.2 MG/DL Total Bilirubin 0.7 MG/DL Aspartate Amino Transf 171 U/L (AST/SGOT) Alanine Aminotransferase 34 U/L (ALT/SGPT) Alkaline Phosphatase 48 U/L Troponin I 21.00 NG/ML Total Protein 6.5 GM/DL Albumin 3.1 GM/DL Triglycerides Level 91 MG/DL 79 MG/DL Cholesterol Level 276 MG/DL 244 MG/DL LDL Cholesterol 203 MG/DL 171 MG/DL HDL Cholesterol 55.2 MG/DL 57.4 MG/DL Cholesterol/HDL Ratio 5.00 RATIO 4.25 RATIO Activated Partial 67.2 SEC 37.1 SEC 48.8 SEC Thromboplast Time Assessment and Plan Problem List: (1) NSTEMI (non-ST elevated myocardial infarction) Assessment and Plan: Overall stable overnight. No further angina. Cath shows severe multivessel CAD, EF ~50%. Rec continue beta oj, EARL-I, aspirin, heparin. Await CABG. Will f/u PRN post op. (2) Hyperlipidemia Assessment and Plan: Suboptimal lipid profile. Ideally needs statin though AST elevated. Rec evaluate the elevated LFT. Code Status full code Discussed Condition With patient and Problem Qualifiers (1) Hyperlipidemia: Qualified Code: E78.2 - Mixed hyperlipidemia Lucas Beyer MD Oct 16, 2016 09:43
[2016-10-16] MEDS ORDERED: CEFAZOLIN INJ 500 MG in SODIUM CHLORIDE 0.9% IRR BTL 500 ML IRRIGATION SCH (11:00)
[2016-10-16] MEDS ORDERED: DEXTROSE 50% IN WATER 50 ML VIAL(D50) IV PUSH PRN (11:00)
[2016-10-16] MEDS ORDERED: METOPROLOL TARTRATE 25 MG TAB PO SCH (11:00)
[2016-10-16] MEDS ORDERED: GLUCAGON 1 MG/ML VIAL OTHER PRN (11:00)
[2016-10-16] MEDS ORDERED: PAPAVERINE INJ 60 MG, NITROGLYCERIN INJ 100 MCG, DILTIAZEM INJ 100 MG in SODIUM CHLORID... IRRIGATION SCH (11:00)
[2016-10-16] MEDS ORDERED: CHLORHEXIDINE GLUCONATE 4% SOLN 120 ML BTL TOPICAL SCH (11:00)
[2016-10-16] MEDS ORDERED: ceFAZolin 2 GM PREMIX 50 ML IV SCH (11:00)
[2016-10-16] MEDS ORDERED: INSULIN REGULAR (IV INFUSION) 100 UNITS in SODIUM CHLORIDE 0.9% INJ 100 ML IV SCH (11:00)
[2016-10-16] MEDS ORDERED: SODIUM CHLORIDE 0.9% FLUSH 5 ML FLUSH IV FLUSH PRN (11:00)
[2016-10-16] MEDS ORDERED: INSULIN NovoLIN REGULAR SUPPLEMENTAL SCALE SQ SCH (11:00)
[2016-10-16] MEDS ORDERED: POTASSIUM CHLORIDE 10 MEQ CONTROLLED RELEASE TAB PO ONE ×2 (11:15→13:30)
[2016-10-16] MEDS ORDERED: FUROSEMIDE 40 MG/4 ML VIAL IV PUSH ONE (11:15)
--- NOTE | 2016-10-16 12:29 | RADRPT ---
EXAM DATE/TIME: 10/16/2016 11:22 [facility] COMPARISON: No previous studies available for comparison. INDICATIONS : Pre-Op Cardiac Surgery. MEDICAL HISTORY : Myocardial infarction. Hypercholesterolemia. Diabetes mellitus type 2. Peripheral neuropathy. L3-5 he rniated disk with stenosis. NSTEMI. Angina. Coronary artery disease. SURGICAL HISTORY : Cardiac stent. Cardiac catheterization. ENCOUNTER: Initial ACUITY: 1 day PAIN SCORE: 2/10 LOCATION: Bilateral legs. TECHNIQUE: Venous ultrasound of the left and right leg was performed from the inguinal ligament to the proximal calf. Real-time, color Doppler and spectral tracing, compression and augmentation techniques were us ed. FINDINGS: RIGHT LEG: There is normal compressibility of the deep venous system from the inguinal region to the proximal ca lf. No echogenic clot is seen in the lumen of the common femoral, femoral, popliteal, and posterior tibial veins. There is a normal response of the venous system to proximal and distal augmentation an d respiration. LEFT LEG: There is normal compressibility of the deep venous system from the inguinal region to the knee. Nonoc clusive thrombus in the posterior tibial veins. CONCLUSION: 1. Nonocclusive thrombus left posterior tibial vein. 2. No deep venous thrombosis in the right lower extremity. Ehsan Recinos MD on October 16, 2016 at 12:26 Board Certified Radiologist. This report was verified electronically.
[2016-10-16] MEDS: GABAPENTIN 300 MG CAP PO SCH ×2 (12:44→17:19)
[2016-10-16] MEDS: ATORVASTATIN 80 MG TAB PO SCH (12:45)
[2016-10-16] MEDS: guaiFENesin E.R. 600 MG TAB PO SCH ×2 (12:45→21:44)
--- NOTE | 2016-10-16 12:48 | RADRPT ---
EXAM DATE/TIME: 10/16/2016 11:08 [facility] COMPARISON: No previous studies available for comparison. INDICATIONS : Pre-Op Cardiac Surgery. MEDICAL HISTORY : Myocardial infarction. Hypercholesterolemia. Diabetes mellitus type 2. Peripher al neuropathy. L3-5 herniated disk with stenosis. NSTEMI. Angina. Coronary artery disease. SURGICAL HISTORY : Cardiac stent. Cardiac catheterization. ENCOUNTER: Initial ACUITY: 1 day PAIN SCORE: 1/10 LOCATION: Bilateral neck PEAK SYSTOLIC VELOCITIES (cm/sec): ICA/CCA RATIO: Right: 0.7 Left: 0.7 ICA: Right: 78 Left: 66 CCA: Right: 104 Left: 89 ECA: Right: 103 Left: 79 VERTEBRAL: Right: 29 antegrade Left: 56 antegrade Elevated flow velocities and ICA/CCA ratios have been found to correlate with increased degrees of vessel stenosis, calculated as percentage of diameter relative to a normal segment of distal ICA/CCA FINDINGS: RIGHT CAROTID: There is no evidence for a hemodynamically significant carotid stenosis. Minimal int imal hyperplasia is present with scattered calcific plaque. LEFT CAROTID: There is no evidence for a hemodynamically significant carotid stenosis. Minimal inti mal hyperplasia is present with scattered calcific plaque. VERTEBRAL ARTERIES: Flow is antegrade in both vertebral arteries. MISCELLANEOUS: There are no ancillary masses or adenopathy. CONCLUSION: Negative examination for a hemodynamically significant carotid stenosis. Sloan Siegel MD FACR Board Certified Radiologist. This report was verified electronically.
--- NOTE | 2016-10-16 12:49 | RADRPT ---
EXAM DATE/TIME: 10/16/2016 11:30 [facility] COMPARISON: No previous studies available for comparison. INDICATIONS : Pre-Op Cardiac Surgery. MEDICAL HISTORY : Hypercholesterolemia. Myocardial infarction. Diabetes mellitus type 2. Peripheral neuropathy. L3-5 he rniated disk with stenosis. NSTEMI. Angina. Coronary artery disease. SURGICAL HISTORY : Cardiac stent. Cardiac catheterization. ENCOUNTER: Initial ACUITY: 1 day PAIN SCORE: 2/10 LOCATION: Bilateral legs. GREATER SAPHENOUS VEIN THIGH: PROXIMAL: Right 4 mm Left 3 mm MID: Right 3 mm Left 2 mm DISTAL: Right 2 mm Left 2 mm CALF: PROXIMAL: Right 1 mm Left 1 mm MID: Right 1 mm Left 1 mm DISTAL: Right 1 mm Left 1 mm FINDINGS: The venous system of the lower extremities are patent by color Doppler imaging. Measurements of the leg veins (in mm) are listed above. CONCLUSION: Venous mapping as described above. Sloan Siegel MD FACR on October 16, 2016 at 12:47 Board Certified Radiologist. This report was verified electronically.
[2016-10-16] MEDS: BENZONATATE 100 MG CAP PO PRN ×3 (13:14→23:42)
[2016-10-16 14:13] LABS: APTT (PATIENT) 43.4 SEC (24.3-30.1)
[2016-10-16 14:37] LABS: BLOOD, URINE NEG (NEG); COMMENT (UR) CULT NOT INDICATED; CULTURE IF INDICATED CULT NOT INDICATED; GLUCOSE,URINE 70 mg/dL (NEG); KETONE, URINE 40 mg/dL (NEG); MUCUS URINE FEW /lpf (OCC); NITRITE,URINE NEG (NEG); URINE COLOR LIGHT-YELLOW (YELLW/STRAW)
--- NOTE | 2016-10-16 15:01 | RADRPT ---
EXAM DATE/TIME: 10/16/2016 13:57 [facility] COMPARISON: No previous studies available for comparison. INDICATIONS : Cough and congestion. MEDICAL HISTORY : Myocardial infarction. Hypercholesterolemia. Diabetes mellitus type 2. P eripheral neuropathy. NSTEMI. Angina. Coronary artery disease. SURGICAL HISTORY : Cardiac stent. Cardiac catheterization. ENCOUNTER: Subsequent ACUITY: 2 days PAIN SCORE: 1/10 LOCATION: chest FINDINGS: A single view of the chest demonstrates patchy consolidative changes throughout the left lung and a l ittle in the right upper lobe and right lower lobe. The cardiomediastinal contours are unremarkable. Osseous structures are intact. CONCLUSION: Multilobar consolidation greater throughout the left lung concerning for multilobar p neumonia. Recommend treatment and followup to resolution. Ehsan Recinos MD on October 16, 2016 at 14:58 Board Certified Radiologist. This report was verified electronically.
--- NOTE | 2016-10-16 15:32 | EC ---
Study Study Date:10/16/2016 STUDY CONCLUSIONS SUMMARY - Left ventricle: The cavity size was mildly dilated. Wall thickness was normal. Systolic function was moderately reduced. The estimated ejection fraction was 35%. Inferolateral hypokinesis. - Aortic valve: Trileaflet; moderately thickened, moderately calcified leaflets. Trace regurgitation. - Mitral valve: Mild regurgitation. - Tricuspid valve: Moderate regurgitation. - Pulmonary arteries: Systolic pressure was moderately to severely increased. PA peak pressure: 74mm Hg (S). If LV function is below 40, please consider prescribing an ACEI or ARB or document rationale for non-use. PROCEDURE DATA STUDY STATUS: Elective. Procedure: Transthoracic echocardiography. Image quality was good. Scanning was performed from the parasternal, apical, and subcostal acoustic windows. Study completion: The patient tolerated the procedure well. Transthoracic echocardiography. M-mode, complete 2D, complete spectral Doppler, and color Doppler. Patient status: Inpatient. CARDIAC ANATOMY LEFT VENTRICLE: The cavity size was mildly dilated. Wall thickness was normal. Systolic function was moderately reduced. The estimated ejection fraction was 35%. Inferolateral hypokinesis. AORTIC VALVE: Trileaflet; moderately thickened, moderately calcified leaflets. Doppler: Transvalvular velocity was within the normal range. There was no stenosis. Trace regurgitation. AORTA: Aortic root: The aortic root was normal in size. MITRAL VALVE: Structurally normal valve. Doppler: Transvalvular velocity was within the normal range. There was no evidence for stenosis. Mild regurgitation. LEFT ATRIUM: The atrium was normal in size. RIGHT VENTRICLE: The cavity size was normal. Wall thickness was normal. PULMONIC VALVE: Doppler: Transvalvular velocity was within the normal range. There was no evidence for stenosis. No regurgitation. TRICUSPID VALVE: Structurally normal valve. Doppler: Transvalvular velocity was within the normal range. Moderate regurgitation. PULMONARY ARTERY: The main pulmonary artery was normal-sized. Systolic pressure was moderately to severely increased. RIGHT ATRIUM: The atrium was normal in size. PERICARDIUM: There was no pericardial effusion. SYSTEMIC VEINS: Inferior vena cava: The vessel was normal in size. BASIC MEASUREMENTS ADULT Normal Left ventricle LV internal dimension, ED, chordal level, 47.9 mm 43-52 PLAX LV internal dimension, ES, chordal level, *41.6 mm 23-38 PLAX Fractional shortening, chordal level, PLAX *13 % >29 LV posterior wall thickness, ED 7.32 mm IVS/LVPW ratio, ED *1.42 <1.3 Ventricular septum Septal thickness, ED 10.4 mm Aortic valve Leaflet separation 18 mm 15-26 Left atrium Anterior-posterior dimension 38 mm Right ventricle RV internal dimension, ED, PLAX 19.1 mm 19-38 BASIC MEASUREMENTS ADULT Normal Aortic valve Leaflet separation 18 mm 15-26 Aorta Root diameter, ED 31 mm 20-37 DOPPLER MEASUREMENTS ADULT Normal Main pulmonary artery Pressure, S *74 mm Hg =30 Aortic valve Peak velocity, S 142 cm/s Mitral valve Peak E-wave velocity 56.7 cm/s Peak A-wave velocity 48.6 cm/s Peak E/A ratio 1.2 Tricuspid valve Regurgitant peak velocity 401 cm/s Peak RV-RA gradient, S 64 mm Hg Maximal regurgitant velocity 401 cm/s Systemic veins Estimated CVP 10 mm Hg Right ventricle RV pressure, S *74 mm Hg <30 LEGEND: Mean values are shown as u=mean value. Asterisk (*) chaudhry values outside specified normal range. Prepared and signed by Joyce Thompson [id number]
[2016-10-16 16:22] LABS: HEMOGLOBIN A1b 1.2 %; HEMOGLOBIN Ao 79.7 %; HEMOGLOBIN F 1.3 %; HEMOGLOBIN LA1C 2.8 %; HEMOGLOBIN P3 4.4 %
[2016-10-16] MEDS: HEPARIN-D5W INJ 250 ML IV SCH (17:13)
--- NOTE | 2016-10-16 17:23 | PD.CAR.PN ---
CVT Progress Note Subjective/Hospital Course: sts data discussed with pt RISK SCORES About the STS Risk Calculator Procedure: CAB Only Risk of Mortality: 0.987% Morbidity or Mortality: 14.158% Long Length of Stay: 4.226% Short Length of Stay: 41.169% Permanent Stroke: 1.038% Prolonged Ventilation: 9.634% DSW Infection: 0.492% Renal Failure: 2.589% Reoperation: 4.501% Objective: Vital Signs Date Time Temp Pulse Resp B/P Pulse Ox O2 Delivery O2 Flow Rate FiO2 10/16/16 17:05 98.6 93/57 10/16/16 17:00 87 10/16/16 16:00 85 10/16/16 15:00 94 10/16/16 15:00 100.4 100 19 91/55 92 10/16/16 14:00 94 10/16/16 13:00 97 10/16/16 12:00 99 10/16/16 11:00 102 10/16/16 11:00 97.8 105 17 110/64 92 10/16/16 10:00 98 10/16/16 09:00 97 10/16/16 08:00 88 10/16/16 07:30 98.1 97 18 107/67 92 10/16/16 07:00 83 10/16/16 06:00 86 10/16/16 05:00 83 10/16/16 04:00 91 10/16/16 03:00 98.9 75 15 105/72 93 10/16/16 03:00 77 10/16/16 02:00 83 10/16/16 01:00 78 10/16/16 00:00 87 10/15/16 23:00 98.2 89 25 100/61 93 10/15/16 23:00 92 10/15/16 22:00 82 10/15/16 19:05 98.1 76 18 106/57 95 10/15/16 18:03 58 Labs: Laboratory Tests Test 10/16/16 10/16/16 10/16/16 11:17 12:50 13:50 Nasal Screen MRSA (PCR) NEGATIVE (NEGATIVE) Activated Partial 43.4 SEC Thromboplast Time (24.3-30.1) Urine Color LIGHT-YELLOW (YELLW/STRAW) Urine Turbidity CLEAR (CLEAR) Urine pH 5.0 (5.0-8.5) Urine Specific [place] 1.007 (1.002-1.035) Urine Protein NEG mg/dL (NEG-TRACE) Urine Glucose (UA) 70 mg/dL (NEG) Urine Ketones 40 mg/dL (NEG) Urine Occult Blood NEG (NEG) Urine Nitrite NEG (NEG) Urine Bilirubin NEG (NEG) Urine Urobilinogen LESS THAN 2.0 MG/DL (LESS THAN 2.0) Urine Leukocyte Esterase NEG (NEG) Urine WBC LESS THAN 1 /hpf (0-5) Urine Mucus FEW /lpf (OCC) Microscopic Urinalysis Comment CULT NOT INDICATED Result Diagram: 10/16/1651910/16/16519 Jessica Vargas Oct 16, 2016 17:23
[2016-10-16] MEDS: AZITHROMYCIN INJ 500 MG in SODIUM CHLOR 0.9% 250 ML INJ 250 ML IV SCH (18:31)
[2016-10-16] MEDS: RESP: ALBUTEROL 2.5 MG/IPRATROPIUM 0.5 MG NEB (SCH) NEB (19:59)
[2016-10-16] MEDS: cefTRIAXone INJ 1,000 MG in SODIUM CHLORIDE 0.9% INJ 100 ML IV SCH (20:12)
[2016-10-16] MEDS: SODIUM CHLORIDE 0.9% FLUSH 5 ML FLUSH IV FLUSH SCH (21:00)
[2016-10-16] MEDS: NORTRIPTYLINE HCL 25 MG CAP PO SCH (21:44)
[2016-10-17] VITALS (28 sets, daily range): BP systolic 89–102; BP diastolic 55–65; PULSE 80–101; RESP 16–20; TEMP 98.5–99.8; O2SAT 94–96
[2016-10-17] MEDS: NITROGLYCERIN 2% OINT 1 GM PACKET TOPICAL SCH ×3 (06:00→17:13)
[2016-10-17] MEDS: PANTOPRAZOLE SOD 40 MG DELAYED RELEASE TAB PO SCH (06:21)
[2016-10-17] MEDS: INSULIN ASPART SUPPLEMENTAL SCALE SQ SCH ×4 (06:22→21:33)
[2016-10-17 06:31] LABS: AUTOMATED NEUTROPHIL # 10.4 TH/MM3 (1.8-7.7); BASOPHIL % 0.1 % (0.0-2.0); EOSINOPHIL % 0.2 % (0.0-4.0); HEMATOCRIT 33.8 % (39.0-51.0); HEMO FLAGS DIFF FINAL; LYMPH % 10.8 % (9.0-44.0); LYMPHOCYTE # 1.4 TH/MM3 (1.0-4.8); MEAN CELL VOLUME 89.4 FL (80.0-100.0); MEAN CORPUSCULAR HEMOGLOBIN 30.7 PG (27.0-34.0); MEAN CORPUSCULAR HGB CONC 34.3 % (32.0-36.0); MONO % 10.8 % (0.0-8.0); NEUT % 78.1 % (16.0-70.0); PLATELET COUNT 235 TH/MM3 (150-450); RED BLOOD COUNT 3.78 MIL/MM3 (4.50-5.90); RED CELL DISTRIBUTION WIDTH 13.5 % (11.6-17.2); WHITE BLOOD COUNT 13.3 TH/MM3 (4.0-11.0)
[2016-10-17 06:36] LABS: APTT (PATIENT) 51.3 SEC (24.3-30.1)
[2016-10-17] MEDS: RESP: ALBUTEROL 2.5 MG/IPRATROPIUM 0.5 MG NEB (SCH) NEB ×3 (08:07→19:31)
--- NOTE | 2016-10-17 08:09 | MB ---
cc: FLORENCE ERICKSON M.D. DATE OF CONSULTATION 10/16/2016 DATE OF 1945 HISTORY OF THE PRESENT ILLNESS This is a 71-year-old male. Date of 1945. A patient of Dr. Lucas Beyer. Apparently was here at the [employer] visiting from [facility]. Started having acute onset of chest pain during his afternoon walk. He has apparently been having intermittent chest pain off and on for 1-2 months. Actually started the third week of August. He was exposed to some folks that had some bronchitis. Complaining of some shortness of breath, burning in the center of his chest, mainly noted with heavy exertion. 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 He was ruled in for a non STEMI. Troponin is elevated as high as 21,000. He underwent cardiac cath by Dr. Lucas Beyer 10/15 and was found to have an EF of 50%, some mild to moderate basilar inferior hypokinesis, moderate left main severe three-vessel coronary disease. The left main had a 40-50% distal stenosis. The LAD demonstrated a stent in the proximal portion. There was diffuse restenosis of the stent up to 85%. One diagonal was small 60-70% stenosis. The left circ resulted in 50% stenosis. The large ramus intermedius 95-99% proximal stenosis. The right coronary artery had a 90% proximal stenosis and 95-99% distal stenosis. We were consulted to evaluate for coronary artery bypass grafting. The patient also had 2-D echocardiogram which showed an EF of 35%, inferior lateral hypokinesis, trace aortic insufficiency, mild mitral regurgitation and moderate tricuspid regurgitation. Systolic pressure is moderately to severe increased with PA pressures of 74 mmHg. PAST MEDICAL HISTORY Significant for: 1. Hyperlipidemia. 2. Coronary artery disease with prior [place]. 3. Peripheral neuropathy. 4. Diabetes mellitus. PAST SURGICAL HISTORY Prior surgeries include: 1. Tonsillectomy. 2. Coronary stent in 2005. 3. Cyst removed from his left knee. ALLERGIES No known allergies. MEDICATIONS Home meds include: 1. Gabapentin. 2. Nortriptyline. 3. Vitamin E. 4. Crestor. 5. B complex. FAMILY HISTORY Mother at age 90 from dementia. Father from complications of hip surgery. SOCIAL HISTORY The patient . Smoked for 10 years, he quit. No alcohol. REVIEW OF SYSTEMS GENERAL: No night sweats, fever, heat or cold intolerance. SKIN: No psoriasis, itching or hives. HEENT: No blurred vision, hearing loss. RESPIRATORY: Positive for cough, congestion, some clear sputum. No current chest pain but however, as above in the history of present illness. No paroxysmal nocturnal dyspnea. No orthopnea. GASTROINTESTINAL: No diarrhea, vomiting. GENITOURINARY: No burning, frequency, urgency. CENTRAL NERVOUS SYSTEM: No history of TIA, CVA, seizure disorder. ENDOCRINOLOGY: Positive for diabetes. No hypothyroidism. PHYSICAL EXAMINATION VITAL SIGNS: On exam blood pressure 110/64, heart rate of 85. Temperature max 100.4. GENERAL: The patient is awake, alert, in no acute distress. HEENT: Head is normocephalic, atraumatic. Pupils equal and reactive. Oral mucosa pink, moist. NECK: Supple. No JVD. CARDIOVASCULAR: Heart sounds S1-S2, regular rate and rhythm. No rubs, murmurs or gallops. LUNGS: He has a few crackles in the right lower base. Otherwise clear to auscultation. ABDOMEN: Soft, nontender. No masses or organomegaly. EXTREMITIES: No cyanosis, clubbing or edema. LABORATORY DATA Lab work shows hemoglobin 12, hematocrit 35, white cell count of 11, platelet count of 260. Sodium 138, potassium 3.5, BUN of 11, creatinine 0.93, glucose 202. Hemoglobin A1c pending. AST 171, ALT 34. Troponin 21,000. BNP of 559. Triglycerides 79, cholesterol 244, LDL 171, HDL 57. INR 1.0. Urinalysis is unremarkable. MRSA negative. IMAGING Carotid ultrasound negative for hemodynamically significant disease. Chest x-ray shows multilobar consolidation greater throughout the left lung concerning for multilobar pneumonia. IMPRESSION 1. This is a 71-year-old male with a non STEMI, elevated troponins, status post cath with multivessel disease. Procedures, alternatives and risks have been discussed with the patient. The patient will need coronary artery bypass grafting x3. 2. The patient with abnormal chest x-ray showing possible multilobar pneumonia, low grade fever and leukocytosis. We will start antibiotic coverage with Rocephin and Zithromax. Consult pulmonary for clearance. 3. Diabetes mellitus. Pending hemoglobin A1c. Monitor blood sugars with glucose control. 4. The patient is currently on heparin drip. He was on Aggrastat which has been discontinued. Ejection fraction is 35-40%. Will need EARL inhibitor post surgery. He also has some mild evidence of mild failure with BNP elevated status post low dose diuretic this a.m. Further planning per Dr. Erickson. DICTATED BY: LILY Lambert Brendan BASSETT/MAEGAN /5:09 PM /8:10 AM
[2016-10-17] MEDS: SODIUM CHLORIDE 0.9% FLUSH 5 ML FLUSH IVF SCH ×2 (09:00→20:46)
[2016-10-17] MEDS: METOPROLOL TARTRATE 25 MG TAB PO SCH ×2 (09:00→20:45)
[2016-10-17] MEDS: GABAPENTIN 300 MG CAP PO SCH ×3 (09:00→17:13)
--- NOTE | 2016-10-17 09:34 | PD.CARD.PN ---
Subjective Subjective Remarks No angina, dizziness, palpitations. Slept well. Dyspnea better. Objective Medications Item Value Date Time Atorvastatin 80 mg 10/16/16 1200 Calcium DAILY/PO 10/16/16 1245 (Lipitor) Heparin Sodium/ 250 ml @ 0 mls/hr 10/15/16 1600 Dextrose TITRATE/IV 10/16/16 1713 Metoprolol 12.5 mg 10/15/16 0900 Tartrate Q12HR/PO (Lopressor) Nitroglycerin 1 inch 10/15/16 0630 (Nitroglycerin Q6HR/TOPICAL 2% Oint) Vital Signs / I&O Vital Signs Date Time Temp Pulse Resp B/P Pulse Ox O2 Delivery O2 Flow Rate FiO2 10/17/16 08:07 95 Nasal Cannula 2.00 10/17/16 07:30 99.3 91 20 92/58 95 10/17/16 07:00 80 10/17/16 06:20 89/55 10/17/16 06:00 91 10/17/16 05:00 85 10/17/16 04:00 83 10/17/16 03:00 80 10/17/16 03:00 99.8 80 16 90/55 94 10/17/16 02:00 85 10/17/16 01:00 84 10/17/16 00:00 81 10/16/16 23:53 99.9 93 16 92/55 93 10/16/16 23:00 91 10/16/16 22:00 87 10/16/16 21:00 81 10/16/16 20:00 91 10/16/16 20:00 Nasal Cannula 2.00 10/16/16 20:00 98.9 97 16 91/56 92 10/16/16 19:00 92 10/16/16 18:00 88 10/16/16 17:05 98.6 93/57 10/16/16 17:00 87 10/16/16 16:00 85 10/16/16 15:00 94 10/16/16 15:00 100.4 100 19 91/55 92 10/16/16 14:00 94 10/16/16 13:00 97 10/16/16 12:00 99 10/16/16 11:00 102 10/16/16 11:00 97.8 105 17 110/64 92 10/16/16 10:00 98 I/O 10/16/16 10/16/16 10/16/16 10/17/16 10/17/16 10/17/16 07:00 15:00 23:00 07:00 15:00 23:00 Intake Total 1839 ml 825 ml 460 ml Output Total 850 ml 900 ml 700 ml Balance 989 ml -75 ml -240 ml Intake Oral 480 ml 710 ml 240 ml IV Total 1359 ml 115 ml 220 ml Output Urine Total 850 ml 900 ml 700 ml # Bowel Movements 0 1 0 Physical Exam GENERAL: Well developed, well nourished. No acute distress. HEENT: Jugular venous pressure is normal. CHEST: Lungs clear to auscultation bilaterally. Unlabored respiratory effort. CARDIAC: Regular rate and rhythm without S3, S4, or murmur. ABDOMEN: Soft, nontender, no hepatosplenomegaly. Bowel sounds present. EXTREMITIES: No clubbing, cyanosis, or edema. Laboratory Laboratory Tests Test 10/16/16 10/16/16 10/16/16 10/17/16 11:17 12:50 13:50 06:03 Nasal Screen MRSA (PCR) NEGATIVE Activated Partial 43.4 SEC 51.3 SEC Thromboplast Time Urine Color LIGHT-YELLOW Urine Turbidity CLEAR Urine pH 5.0 Urine Specific [place] 1.007 Urine Protein NEG mg/dL Urine Glucose (UA) 70 mg/dL Urine Ketones 40 mg/dL Urine Occult Blood NEG Urine Nitrite NEG Urine Bilirubin NEG Urine Urobilinogen LESS THAN 2.0 MG/DL Urine Leukocyte Esterase NEG Urine WBC LESS THAN 1 /hpf Urine Mucus FEW /lpf Microscopic Urinalysis Comment CULT NOT INDICATED White Blood Count 13.3 TH/MM3 Red Blood Count 3.78 MIL/MM3 Hemoglobin 11.6 GM/DL Hematocrit 33.8 % Mean Corpuscular Volume 89.4 FL Mean Corpuscular Hemoglobin 30.7 PG Mean Corpuscular Hemoglobin 34.3 % Concent Red Cell Distribution Width 13.5 % Platelet Count 235 TH/MM3 Mean Platelet Volume 7.9 FL Neutrophils (%) (Auto) 78.1 % Lymphocytes (%) (Auto) 10.8 % Monocytes (%) (Auto) 10.8 % Eosinophils (%) (Auto) 0.2 % Basophils (%) (Auto) 0.1 % Neutrophils # (Auto) 10.4 TH/MM3 Lymphocytes # (Auto) 1.4 TH/MM3 Monocytes # (Auto) 1.4 TH/MM3 Eosinophils # (Auto) 0.0 TH/MM3 Basophils # (Auto) 0.0 TH/MM3 CBC Comment DIFF FINAL Differential Comment Blood Type A POSITIVE Antibody Screen NEGATIVE Crossmatch Leukocyte-Reduced Red Blood Cells Blood Bank Comment Test 10/17/16 07:11 Blood Type A POSITIVE Assessment and Plan Problem List: (1) NSTEMI (non-ST elevated myocardial infarction) Assessment and Plan: Stable overnight. No further angina. Cath shows severe multivessel CAD, EF ~50%. Rec continue beta oj, aspirin, heparin. BP's too low for EARL-I. Await CABG. Will f/u PRN post op. (2) Hyperlipidemia Assessment and Plan: Suboptimal lipid profile. Ideally needs statin though AST elevated. Rec very close monitoring of LFTs if he is to remain on statin therapy. (3) Ischemic cardiomyopathy Assessment and Plan: EF does appear closer to 35-40% by echo. Rec continue beta oj. BP's too low for EARL-I. CXR more suggestive of pneumonia than CHF. Code Status full code Discussed Condition With patient Problem Qualifiers (1) Hyperlipidemia: Qualified Code: E78.2 - Mixed hyperlipidemia Lucas Beyer MD Oct 17, 2016 09:34
[2016-10-17] MEDS: guaiFENesin E.R. 600 MG TAB PO SCH ×2 (09:51→20:45)
[2016-10-17] MEDS: ATORVASTATIN 80 MG TAB PO SCH (09:51)
[2016-10-17] MEDS: NORTRIPTYLINE HCL 25 MG CAP PO SCH ×2 (09:51→20:47)
[2016-10-17] MEDS: SODIUM CHLORIDE 0.9% FLUSH 5 ML FLUSH IV FLUSH SCH ×2 (09:51→20:46)
--- NOTE | 2016-10-17 10:42 | HHI.PR ---
Subjective Remarks Follow-up non-ST elevation [place] 10/15/16-patient seen and examined, continue to experience chest pain and rated 3-4/10 in intensity; This a.m., however patient is refusing morphine.He Denies any shortness of breath 10/16/16-patient seen and examined, had heart catheterization with finding of three-vessel disease for which CT is has been consulted. Complains of phlegm/ nonproductive cough however afebrile 10/17/16-patient seen and examined; denies any chest pain or shortness of breath. Currently on IV antibiotics for pneumonia Objective Vitals Vital Signs Date Time Temp Pulse Resp B/P Pulse Ox O2 Delivery O2 Flow Rate FiO2 10/17/16 10:00 92 10/17/16 09:00 86 10/17/16 08:07 95 Nasal Cannula 2.00 10/17/16 08:00 88 10/17/16 07:30 99.3 91 20 92/58 95 10/17/16 07:00 80 10/17/16 06:20 89/55 10/17/16 06:00 91 10/17/16 05:00 85 10/17/16 04:00 83 10/17/16 03:00 80 10/17/16 03:00 99.8 80 16 90/55 94 10/17/16 02:00 85 10/17/16 01:00 84 10/17/16 00:00 81 10/16/16 23:53 99.9 93 16 92/55 93 10/16/16 23:00 91 10/16/16 22:00 87 10/16/16 21:00 81 10/16/16 20:00 91 10/16/16 20:00 Nasal Cannula 2.00 10/16/16 20:00 98.9 97 16 91/56 92 10/16/16 19:00 92 10/16/16 18:00 88 10/16/16 17:05 98.6 93/57 10/16/16 17:00 87 10/16/16 16:00 85 10/16/16 15:00 94 10/16/16 15:00 100.4 100 19 91/55 92 10/16/16 14:00 94 10/16/16 13:00 97 10/16/16 12:00 99 10/16/16 11:00 102 10/16/16 11:00 97.8 105 17 110/64 92 I/O 10/16/16 10/16/16 10/16/16 10/17/16 10/17/16 10/17/16 07:00 15:00 23:00 07:00 15:00 23:00 Intake Total 1839 ml 825 ml 460 ml Output Total 850 ml 900 ml 700 ml Balance 989 ml -75 ml -240 ml Intake Oral 480 ml 710 ml 240 ml IV Total 1359 ml 115 ml 220 ml Output Urine Total 850 ml 900 ml 700 ml # Bowel Movements 0 1 0 Result Diagram: 10/17/16 0603 10/16/16 0520 Imaging Last Impressions Lower Extremity Ultrasound 10/16/16 0000 Signed Impressions: Service Date/Time: Sunday, October 16, 2016 11:30 - CONCLUSION: Venous mapping as described above. Sloan Siegel MD FACR Chest X-Ray 10/16/16 0000 Signed Impressions: Service Date/Time: Sunday, October 16, 2016 13:57 - CONCLUSION: Multilobar consolidation greater throughout the left lung concerning for multilobar pneumonia. Recommend treatment and followup to resolution. Ehsan Recinos MD Carotid Artery Ultrasound 10/16/16 0000 Signed Impressions: Service Date/Time: Sunday, October 16, 2016 11:08 - CONCLUSION: Negative examination for a hemodynamically significant carotid stenosis. Sloan Siegel MD Objective Remarks GENERAL: NAD SKIN: Warm and dry. HEAD: Normocephalic. EYES: No scleral icterus. No injection or drainage. NECK: Supple, trachea midline. No JVD or lymphadenopathy. CARDIOVASCULAR: Regular rate and rhythm without murmurs, gallops, or rubs. RESPIRATORY: Breath sounds equal bilaterally. No accessory muscle use. GASTROINTESTINAL: Abdomen soft, non-tender, nondistended. MUSCULOSKELETAL: No cyanosis, or edema. BACK: Nontender without obvious deformity. No CVA tenderness. A/P Problem List: (1) NSTEMI (non-ST elevated myocardial infarction) ICD Code: I21.4 Status: Acute (2) Dehydration ICD Code: E86.0 Status: Acute (3) HTN (hypertension) ICD Code: I10 Status: Acute (4) DM (diabetes mellitus) ICD Code: E11.9 Status: Acute (5) HCAP (healthcare-associated pneumonia) ICD Code: J18.9 Status: Acute Assessment and Plan 71-year-old male with 1. Moderate left main and severe three-vessel coronary artery disease: Appreciate input from CTS and and plan for CABG. Continue with heparin drip/ Vasotec/Statin/BB/NTG/Morphine as needed. 2. NSTEMI: Patient with previous stents placement, patient is status post left heart catheterization with finding of Moderate left main and severe three- vessel coronary artery disease. Heparin drip/Vasotec/Statin/BB/NTG/Morphine as needed. 3. HCAP: Currently on IV Rocephin and azithromycin 4. HTN: continue low-dose Metoprolol. Monitor BP. 5. DM: Sliding scale w/ Accu-Cheks. Hgb A1c pending. 6. DVT Prophylaxis: On Heparin gtt Ehsan Carpenter MD Oct 17, 2016 10:42
--- NOTE | 2016-10-17 13:04 | MB ---
cc: Refugio EUGENE DATE OF CONSULTATION 10/17/2016 HISTORY Mr. Stovall is a 71-year-old white male visiting here from [place] for the [employer]. He has a prior history of coronary disease, had a stenting procedure over a decade ago. For the last several months he has noticed some substernal chest discomfort with exertion but until he came here he had not had any severe, sustained pain. Several days ago he began to have what he thought was heartburn but severe substernal discomfort, burning sensation and then eventually presented himself to the emergency room for evaluation on 10/14. Troponins were elevated. He was seen by Dr. Beyer and catheterized and he has triple-vessel coronary disease and needs surgery. He has been stabilized on medical therapy at present. The patient was a former smoker, probably 40 pack-years total. He smoked on and off but up to two packs per day at times from the age of 21 until he quit completely at about 56. He had never previously been diagnosed with any specific lung disease other than pneumonia many years ago but was never known to have asthma or COPD. He does not normally complain of shortness of breath. Usually his exertion is limited by chest pain. PAST MEDICAL HISTORY Other than that noted above, he is diabetic and has peripheral neuropathy. PRIOR SURGERIES 1. Coronary stent in 2005. 2. Tonsillectomy. 3. Benign cyst removed from the left knee. ALLERGIES None known. MEDICATIONS Reviewed in the EMR. FAMILY HISTORY Positive for dementia in the mother. Father in a postoperative state. SOCIAL HISTORY , living with his in [place]. Visiting here for the [employer]. Smoking as noted above. No excessive alcohol. REVIEW OF SYSTEMS He has had cough with congestion for least a week, actually some blood intermingled, blood streaking of the sputum as well. He had the cough even prior to coming to this area. Several people at work have been sick. 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 He has had no headache. He was somewhat short of breath on presentation; that has settled down. No significant chronic edema. He has had no abdominal complaints or reflux disease. No recent diarrhea. No other unusual inhalation exposures. PHYSICAL EXAMINATION GENERAL: The patient is awake, alert, comfortable at rest. VITAL SIGNS: Temperatures ranged from 98-100, pulse is 90, respirations are 18-22 and blood pressure is 100/60. HEENT: Sclerae anicteric. NECK: Neck veins are flat. No adenopathy in the neck or supraclavicular region. CHEST: His chest is congested, without wheezing. HEART: Regular heart rhythm without harsh murmur. No audible S3. ABDOMEN: Soft, nontender. EXTREMITIES: He has no peripheral edema or calf tenderness. No cyanosis or clubbing. LABORATORY DATA White count has been elevated in the range of 13,000, hemoglobin 11.6. Nasal screen for MRSA negative. Blood cultures negative. Influenza A and B negative. Sputum reveals normal royal. DISCUSSION Mr. Stovall presents with an acute [place], significant coronary disease and it is felt necessary to have cardiac surgery. I spoke with Dr. Blanton this morning. I am concerned that he does in fact have pneumonia, although some of the infiltrate on chest x-ray may be congestive heart failure. The cough and sputum, elevated white count and fever would all be consistent with infection as well. We will continue his antibiotics, do a follow-up chest x-ray in a day or two, continue his aerosol therapy and hold surgery pending resolution of this acute infectious lung problem. Further diagnostic and/or therapeutic intervention will depend on his ongoing clinical course. RMD ASHOK Wei/MARCELLUS /12:40 PM /12:50 PM
--- NOTE | 2016-10-17 16:08 | PD.CAR.PN ---
CVT Progress Note Subjective/Hospital Course: 71/ male visiting from [place] for the [place], was out for a walk and developed chest pain , has admitted to chest pain off and on x 2 months , found to have NSTEMI Trop peaked at 21, has prior hx of CAD, SD stent in 2005, underwent cardiac cath by Dr Lucas Beyer 10/15/16 found to have multivessel disease EF 50 % PMH: CAD/ SD, stent DM, HLP. peripheral neuropathy/ prior tobacco abuse 10/17 CXR noted yesterday, multilobar PNA, + fever, leukocytosis, started on CPAP coverage strep pneum neg, neg legionella, flu neg, blood cultures neg surgery rescheduled for Monday 10/23 appreciate Pulm input will continue nebs, pulm toileting Objective: GENERAL: SKIN: Warm and dry. HEAD: Normocephalic. EYES: No scleral icterus. No injection or drainage. NECK: Supple, trachea midline. No JVD or lymphadenopathy. CARDIOVASCULAR: Regular rate and rhythm without murmurs, gallops, or rubs. RESPIRATORY: coarse breath sounds, crackles noted right lower lobe Breath sounds equal bilaterally. No accessory muscle use. GASTROINTESTINAL: Abdomen soft, non-tender, nondistended. MUSCULOSKELETAL: No cyanosis, or edema. BACK: Nontender without obvious deformity. No CVA tenderness. Vital Signs Date Time Temp Pulse Resp B/P Pulse Ox O2 Delivery O2 Flow Rate FiO2 10/17/16 15:00 84 10/17/16 15:00 98.8 95 18 102/65 96 10/17/16 14:00 88 10/17/16 13:00 100 10/17/16 12:00 99 10/17/16 11:00 97 10/17/16 11:00 98.9 95 18 96/56 94 10/17/16 10:00 92 10/17/16 09:00 86 10/17/16 08:07 95 Nasal Cannula 2.00 10/17/16 08:00 88 10/17/16 07:30 99.3 91 20 92/58 95 10/17/16 07:00 80 10/17/16 06:20 89/55 10/17/16 06:00 91 10/17/16 05:00 85 10/17/16 04:00 83 10/17/16 03:00 80 10/17/16 03:00 99.8 80 16 90/55 94 10/17/16 02:00 85 10/17/16 01:00 84 10/17/16 00:00 81 10/16/16 23:53 99.9 93 16 92/55 93 10/16/16 23:00 91 10/16/16 22:00 87 10/16/16 21:00 81 10/16/16 20:00 91 10/16/16 20:00 Nasal Cannula 2.00 10/16/16 20:00 98.9 97 16 91/56 92 10/16/16 19:00 92 10/16/16 18:00 88 10/16/16 17:05 98.6 93/57 10/16/16 17:00 87 10/16/16 16:00 85 Labs: Laboratory Tests Test 10/17/16 10/17/16 06:03 07:11 White Blood Count 13.3 TH/MM3 (4.0-11.0) Red Blood Count 3.78 MIL/MM3 (4.50-5.90) Hemoglobin 11.6 GM/DL (13.0-17.0) Hematocrit 33.8 % (39.0-51.0) Mean Corpuscular Volume 89.4 FL (80.0-100.0) Mean Corpuscular Hemoglobin 30.7 PG (27.0-34.0) Mean Corpuscular Hemoglobin 34.3 % Concent (32.0-36.0) Red Cell Distribution Width 13.5 % (11.6-17.2) Platelet Count 235 TH/MM3 (150-450) Mean Platelet Volume 7.9 FL (7.0-11.0) Neutrophils (%) (Auto) 78.1 % (16.0-70.0) Lymphocytes (%) (Auto) 10.8 % (9.0-44.0) Monocytes (%) (Auto) 10.8 % (0.0-8.0) Eosinophils (%) (Auto) 0.2 % (0.0-4.0) Basophils (%) (Auto) 0.1 % (0.0-2.0) Neutrophils # (Auto) 10.4 TH/MM3 (1.8-7.7) Lymphocytes # (Auto) 1.4 TH/MM3 (1.0-4.8) Monocytes # (Auto) 1.4 TH/MM3 (0-0.9) Eosinophils # (Auto) 0.0 TH/MM3 (0-0.4) Basophils # (Auto) 0.0 TH/MM3 (0-0.2) CBC Comment DIFF FINAL Differential Comment Activated Partial 51.3 SEC Thromboplast Time (24.3-30.1) Blood Type A POSITIVE A POSITIVE Antibody Screen NEGATIVE Crossmatch Leukocyte-Reduced Red Blood Cells Blood Bank Comment Result Diagram: 10/17/1603 10/16/16 0520 (1) NSTEMI (non-ST elevated myocardial infarction) Plan: . Cath shows severe multivessel CAD, EF ~50%. Rec continue beta oj , aspirin, heparin. BP's too low for EARL-I. Await CABG. Will f/u PRN post op. (2) Hyperlipidemia Plan: Suboptimal lipid profile. Ideally needs statin though AST elevated. close monitoring of LFTs if he is to remain on statin therapy. (3) Ischemic cardiomyopathy Plan: EF does appear closer to 35-40% by echo. Rec continue beta oj. BP's too low for EARL-I. (4) DM (diabetes mellitus) Plan: on insulin sliding scale, diabetic diet (5) HTN (hypertension) Plan: BP on lower side (6) Community acquired pneumonia Plan: on rocephin and zithromax, await sputum cultures Problem Qualifiers (1) Hyperlipidemia: Qualified Code: E78.2 - Mixed hyperlipidemia Jessica Vargas Oct 17, 2016 16:08
[2016-10-17] MEDS: AZITHROMYCIN INJ 500 MG in SODIUM CHLOR 0.9% 250 ML INJ 250 ML IV SCH (17:19)
[2016-10-17] MEDS: HEPARIN-D5W INJ 250 ML IV SCH (17:25)
[2016-10-17] MEDS: BENZONATATE 100 MG CAP PO PRN ×2 (17:28→21:33)
[2016-10-17] MEDS: cefTRIAXone INJ 1,000 MG in SODIUM CHLORIDE 0.9% INJ 100 ML IV SCH (20:46)
[2016-10-18] VITALS (29 sets, daily range): BP systolic 97–105; BP diastolic 60–67; PULSE 75–98; RESP 16–20; TEMP 98.7–99.7; O2SAT 93–97
[2016-10-18] MEDS: NITROGLYCERIN 2% OINT 1 GM PACKET TOPICAL SCH ×5 (06:00→23:43)
[2016-10-18 06:25] LABS: AUTOMATED NEUTROPHIL # 8.7 TH/MM3 (1.8-7.7); BASOPHIL % 0.2 % (0.0-2.0); EOSINOPHIL % 0.4 % (0.0-4.0); HEMATOCRIT 34.6 % (39.0-51.0); HEMO FLAGS DIFF FINAL; LYMPH % 11.2 % (9.0-44.0); LYMPHOCYTE # 1.3 TH/MM3 (1.0-4.8); MEAN CELL VOLUME 89.6 FL (80.0-100.0); MEAN CORPUSCULAR HEMOGLOBIN 30.7 PG (27.0-34.0); MEAN CORPUSCULAR HGB CONC 34.3 % (32.0-36.0); MONO % 11.3 % (0.0-8.0); NEUT % 76.9 % (16.0-70.0); PLATELET COUNT 261 TH/MM3 (150-450); RED BLOOD COUNT 3.86 MIL/MM3 (4.50-5.90); WHITE BLOOD COUNT 11.3 TH/MM3 (4.0-11.0)
[2016-10-18 06:34] LABS: APTT (PATIENT) 45.5 SEC (24.3-30.1)
[2016-10-18] MEDS: INSULIN ASPART SUPPLEMENTAL SCALE SQ SCH ×4 (06:45→21:09)
[2016-10-18] MEDS: PANTOPRAZOLE SOD 40 MG DELAYED RELEASE TAB PO SCH (06:45)
[2016-10-18 06:47] LABS: BICARBONATE 22.1 MEQ/L (21.0-32.0); POTASSIUM 3.3 MEQ/L (3.5-5.1)
[2016-10-18] MEDS: RESP: ALBUTEROL 2.5 MG/IPRATROPIUM 0.5 MG NEB (SCH) NEB ×3 (07:37→21:44)
--- NOTE | 2016-10-18 08:42 | HHI.PR ---
Subjective Remarks Follow-up non-ST elevation [place] 10/15/16-patient seen and examined, continue to experience chest pain and rated 3-4/10 in intensity; This a.m., however patient is refusing morphine.He Denies any shortness of breath 10/16/16-patient seen and examined, had heart catheterization with finding of three-vessel disease for which CT is has been consulted. Complains of phlegm/ nonproductive cough however afebrile 10/17/16-patient seen and examined; denies any chest pain or shortness of breath. Currently on IV antibiotics for pneumonia 10/18/16-patient seen and examined; complains of alternating chills and hot sensation overnight however afebrile. +nonproductive cough without any hemoptysis Objective Vitals Vital Signs Date Time Temp Pulse Resp B/P Pulse Ox O2 Delivery O2 Flow Rate FiO2 10/18/16 08:07 99.6 98 17 97/63 94 10/18/16 07:38 95 Nasal Cannula 2.00 10/18/16 07:00 85 10/18/16 06:08 91 10/18/16 05:18 86 10/18/16 04:35 75 10/18/16 03:57 93 10/18/16 03:45 99.3 88 16 105/67 95 10/18/16 02:30 91 10/18/16 01:05 84 10/18/16 00:08 88 10/18/16 00:07 98.7 89 18 99/63 94 10/17/16 23:57 93 10/17/16 22:00 91 10/17/16 21:00 95 10/17/16 20:00 97 10/17/16 19:31 95 Nasal Cannula 2.00 10/17/16 19:00 94 10/17/16 19:00 98.5 101 17 102/63 94 10/17/16 18:00 97 10/17/16 17:00 90 10/17/16 16:00 95 10/17/16 15:00 84 10/17/16 15:00 98.8 95 18 102/65 96 10/17/16 14:00 88 10/17/16 13:00 100 10/17/16 12:00 99 10/17/16 11:00 97 10/17/16 11:00 98.9 95 18 96/56 94 10/17/16 10:00 92 10/17/16 09:00 86 I/O 10/17/16 10/17/16 10/17/16 10/18/16 10/18/16 10/18/16 07:00 15:00 23:00 07:00 15:00 23:00 Intake Total 460 ml 560 ml 360 ml Output Total 700 ml 550 ml 575 ml Balance -240 ml 10 ml -215 ml Intake Oral 240 ml 420 ml 360 ml IV Total 220 ml 140 ml Output Urine Total 700 ml 550 ml 575 ml # Bowel Movements 0 Result Diagram: 10/18/16 0602 10/18/16 0602 Objective Remarks GENERAL: NAD SKIN: Warm and dry. HEAD: Normocephalic. EYES: No scleral icterus. No injection or drainage. NECK: Supple, trachea midline. No JVD or lymphadenopathy. CARDIOVASCULAR: Regular rate and rhythm without murmurs, gallops, or rubs. RESPIRATORY: Breath sounds equal bilaterally. No accessory muscle use. GASTROINTESTINAL: Abdomen soft, non-tender, nondistended. MUSCULOSKELETAL: No cyanosis, or edema. BACK: Nontender without obvious deformity. No CVA tenderness. A/P Problem List: (1) NSTEMI (non-ST elevated myocardial infarction) ICD Code: I21.4 Status: Acute (2) Dehydration ICD Code: E86.0 Status: Acute (3) HTN (hypertension) ICD Code: I10 Status: Acute (4) DM (diabetes mellitus) ICD Code: E11.9 Status: Acute (5) HCAP (healthcare-associated pneumonia) ICD Code: J18.9 Status: Acute Assessment and Plan 71-year-old male with 1. Moderate left main and severe three-vessel coronary artery disease: Appreciate input from CTS and and plan for CABG when medically stable. Continue with heparin drip/Vasotec/Statin/BB/NTG/Morphine as needed. 2. NSTEMI: Patient with previous stents placement, patient is status post left heart catheterization with finding of Moderate left main and severe three- vessel coronary artery disease. Heparin drip/Vasotec/Statin/BB/NTG/Morphine as needed. 3. HCAP: Currently on IV Rocephin and azithromycin pending sputum culture. 4. HTN: continue low-dose Metoprolol. Monitor BP. 5. DM: Labile BG.Sliding scale w/ Accu-Cheks however switch to Medium ISS and consider adding short acting . 6. DVT Prophylaxis: On Heparin gtt Ehsan Carpenter MD Oct 18, 2016 08:42
[2016-10-18] MEDS: SODIUM CHLORIDE 0.9% FLUSH 5 ML FLUSH IV FLUSH SCH ×2 (09:00→20:17)
[2016-10-18] MEDS: SODIUM CHLORIDE 0.9% FLUSH 5 ML FLUSH IVF SCH ×2 (09:00→20:17)
[2016-10-18] MEDS: GABAPENTIN 300 MG CAP PO SCH (09:00)
[2016-10-18] MEDS: METOPROLOL TARTRATE 25 MG TAB PO SCH ×2 (09:00→20:17)
[2016-10-18] MEDS: NORTRIPTYLINE HCL 25 MG CAP PO SCH (09:00)
[2016-10-18] MEDS: ATORVASTATIN 80 MG TAB PO SCH (09:00)
[2016-10-18] MEDS: guaiFENesin E.R. 600 MG TAB PO SCH ×2 (09:01→20:18)
--- NOTE | 2016-10-18 09:12 | RSPPFT ---
DATE OF PROCEDURE: 10/16/16 COMMENTS: Spirometry with FVC of 2.1 predicted 4.3, FEV1 of 1.7 predicted 3.4, FEV1/FVC ratio 80% predicted 78%. IMPRESSION: Lung volumes would be necessary to further evaluate patient's restrictive defect.
[2016-10-18] MEDS ORDERED: POTASSIUM CHLORIDE 10 MEQ CONTROLLED RELEASE TAB PO ONE (10:30)
--- NOTE | 2016-10-18 10:34 | PD.CAR.PN ---
CVT Progress Note Subjective/Hospital Course: 71/ male visiting from [place] for the races, was out for a walk and developed chest pain , has admitted to chest pain off and on x 2 months , found to have NSTEMI Trop peaked at 21, has prior hx of CAD, [place] stent in 2005, underwent cardiac cath by Dr Lucas Beyer 10/15/16 found to have multivessel disease EF 50 % PMH: CAD/ [place], stent DM, HLP. peripheral neuropathy/ prior tobacco abuse 10/17 CXR noted yesterday, multilobar PNA, + fever, leukocytosis, started on CPAP coverage strep pneum neg, neg legionella, flu neg, blood cultures neg surgery rescheduled for Monday 10/23 appreciate Pulm input will continue nebs, pulm toileting 10/18 leukocytosis improving fevers improved, not sleeping well at night still has some congested cough continue nebs, pulm toileting consult pt Objective: GENERAL: SKIN: Warm and dry HEAD: Normocephalic. EYES: No scleral icterus. No injection or drainage. NECK: Supple, trachea midline. No JVD or lymphadenopathy. CARDIOVASCULAR: Regular rate and rhythm without murmurs, gallops, or rubs. RESPIRATORY: few crackles right lower lobe, improved Breath sounds equal bilaterally. No accessory muscle use. GASTROINTESTINAL: Abdomen soft, non-tender, nondistended. MUSCULOSKELETAL: No cyanosis, or edema. BACK: Nontender without obvious deformity. No CVA tenderness. Vital Signs Date Time Temp Pulse Resp B/P Pulse Ox O2 Delivery O2 Flow Rate FiO2 10/18/16 08:07 99.6 98 17 97/63 94 10/18/16 07:38 95 Nasal Cannula 2.00 10/18/16 07:00 85 10/18/16 06:08 91 10/18/16 05:18 86 10/18/16 04:35 75 10/18/16 03:57 93 10/18/16 03:45 99.3 88 16 105/67 95 10/18/16 02:30 91 10/18/16 01:05 84 10/18/16 00:08 88 10/18/16 00:07 98.7 89 18 99/63 94 10/17/16 23:57 93 10/17/16 22:00 91 10/17/16 21:00 95 10/17/16 20:00 97 10/17/16 19:31 95 Nasal Cannula 2.00 10/17/16 19:00 94 10/17/16 19:00 98.5 101 17 102/63 94 10/17/16 18:00 97 10/17/16 17:00 90 10/17/16 16:00 95 10/17/16 15:00 84 10/17/16 15:00 98.8 95 18 102/65 96 10/17/16 14:00 88 10/17/16 13:00 100 10/17/16 12:00 99 10/17/16 11:00 97 10/17/16 11:00 98.9 95 18 96/56 94 Labs: Laboratory Tests Test 10/18/16 06:02 White Blood Count 11.3 TH/MM3 (4.0-11.0) Red Blood Count 3.86 MIL/MM3 (4.50-5.90) Hemoglobin 11.9 GM/DL (13.0-17.0) Hematocrit 34.6 % (39.0-51.0) Mean Corpuscular Volume 89.6 FL (80.0-100.0) Mean Corpuscular Hemoglobin 30.7 PG (27.0-34.0) Mean Corpuscular Hemoglobin 34.3 % Concent (32.0-36.0) Red Cell Distribution Width 14.0 % (11.6-17.2) Platelet Count 261 TH/MM3 (150-450) Mean Platelet Volume 7.3 FL (7.0-11.0) Neutrophils (%) (Auto) 76.9 % (16.0-70.0) Lymphocytes (%) (Auto) 11.2 % (9.0-44.0) Monocytes (%) (Auto) 11.3 % (0.0-8.0) Eosinophils (%) (Auto) 0.4 % (0.0-4.0) Basophils (%) (Auto) 0.2 % (0.0-2.0) Neutrophils # (Auto) 8.7 TH/MM3 (1.8-7.7) Lymphocytes # (Auto) 1.3 TH/MM3 (1.0-4.8) Monocytes # (Auto) 1.3 TH/MM3 (0-0.9) Eosinophils # (Auto) 0.0 TH/MM3 (0-0.4) Basophils # (Auto) 0.0 TH/MM3 (0-0.2) CBC Comment DIFF FINAL Differential Comment Activated Partial 45.5 SEC Thromboplast Time (24.3-30.1) Sodium Level 138 MEQ/L (136-145) Potassium Level 3.3 MEQ/L (3.5-5.1) Chloride Level 103 MEQ/L (98-107) Carbon Dioxide Level 22.1 MEQ/L (21.0-32.0) Anion Gap 13 MEQ/L (5-15) Blood Urea Nitrogen 13 MG/DL (7-18) Creatinine 0.96 MG/DL (0.60-1.30) Estimat Glomerular Filtration 77 ML/MIN (>89) Rate Random Glucose 193 MG/DL (74-106) Calcium Level 8.5 MG/DL (8.5-10.1) Result Diagram: 10/18/1602 10/18/16601 Telemetry: NSR (1) NSTEMI (non-ST elevated myocardial infarction) Plan: . Cath shows severe multivessel CAD, EF ~50%. Rec continue beta oj , aspirin, heparin. BP's too low for EARL-I. Await CABG. scheduled for Sunday (2) Hyperlipidemia Plan: Suboptimal lipid profile. Ideally needs statin though AST elevated. close monitoring of LFTs if he is to remain on statin therapy. (3) Ischemic cardiomyopathy Plan: EF does appear closer to 35-40% by echo. Rec continue beta oj. BP's too low for EARL-I. (4) DM (diabetes mellitus) Plan: on insulin sliding scale, diabetic diet add levemir (5) HTN (hypertension) Plan: BP on lower side (6) Community acquired pneumonia Plan: on rocephin and zithromax, Problem Qualifiers (1) Hyperlipidemia: Qualified Code: E78.2 - Mixed hyperlipidemia Jessica Vargas Oct 18, 2016 10:34
[2016-10-18] MEDS ORDERED: ZOLPIDEM TARTRATE 5 MG TAB PO PRN (11:00)
[2016-10-18] MEDS ORDERED: POTASSIUM CHLORIDE 20 MEQ CONTROLLED RELEASE TAB PO ONE (14:00)
[2016-10-18] MEDS: AZITHROMYCIN INJ 500 MG in SODIUM CHLOR 0.9% 250 ML INJ 250 ML IV SCH (17:31)
[2016-10-18] MEDS: HEPARIN-D5W INJ 250 ML IV SCH (17:41)
[2016-10-18] MEDS: cefTRIAXone INJ 1,000 MG in SODIUM CHLORIDE 0.9% INJ 100 ML IV SCH (20:17)
[2016-10-18] MEDS: INSULIN DETEMIR 100 UNITS/ML VIAL SQ SCH (20:18)
[2016-10-18] MEDS: ACETAMINOPHEN/HYDROcodone 325 MG/5 MG TAB PO PRN (23:40)
[2016-10-19] VITALS (30 sets, daily range): BP systolic 90–106; BP diastolic 56–74; PULSE 75–108; RESP 17–19; TEMP 97.6–100.3; O2SAT 93–99
[2016-10-19] MEDS: PANTOPRAZOLE SOD 40 MG DELAYED RELEASE TAB PO SCH (05:44)
[2016-10-19 05:58] LABS: AUTOMATED NEUTROPHIL # 7.4 TH/MM3 (1.8-7.7); BASOPHIL % 0.3 % (0.0-2.0); EOSINOPHIL # 0.2 TH/MM3 (0-0.4); EOSINOPHIL % 1.5 % (0.0-4.0); HEMATOCRIT 32.1 % (39.0-51.0); HEMO FLAGS DIFF FINAL; LYMPH % 13.7 % (9.0-44.0); LYMPHOCYTE # 1.4 TH/MM3 (1.0-4.8); MEAN CELL VOLUME 88.8 FL (80.0-100.0); MEAN CORPUSCULAR HEMOGLOBIN 30.7 PG (27.0-34.0); MEAN CORPUSCULAR HGB CONC 34.6 % (32.0-36.0); MONO % 13.2 % (0.0-8.0); NEUT % 71.3 % (16.0-70.0); PLATELET COUNT 291 TH/MM3 (150-450); RED BLOOD COUNT 3.61 MIL/MM3 (4.50-5.90); WHITE BLOOD COUNT 10.5 TH/MM3 (4.0-11.0)
[2016-10-19] MEDS: NITROGLYCERIN 2% OINT 1 GM PACKET TOPICAL SCH ×3 (06:00→17:36)
[2016-10-19] MEDS: INSULIN ASPART SUPPLEMENTAL SCALE SQ SCH ×4 (06:07→21:12)
[2016-10-19 06:08] LABS: APTT (PATIENT) 42.3 SEC (24.3-30.1)
[2016-10-19 06:25] LABS: BICARBONATE 27.2 MEQ/L (21.0-32.0); POTASSIUM 4.1 MEQ/L (3.5-5.1)
--- NOTE | 2016-10-19 06:32 | RADRPT ---
EXAM DATE/TIME: 10/19/2016 04:40 [facility] COMPARISON: CHEST SINGLE AP, October 16, 2016, 13:57. INDICATIONS : Shortness of breath, possible pulmonary disease. MEDICAL HISTORY : Myocardial infarction. Hypercholesterolemia. Diabetes mellitus type II. SURGICAL HISTORY : Coronary artery stent. ENCOUNTER: Subsequent ACUITY: 1 week PAIN SCORE: 0/10 LOCATION: Bilateral chest FINDINGS: Bilateral airspace consolidation has increased from October 16, left greater than right. Small effus ions present. Heart size within normal limits. CONCLUSION: 1. Increasing bilateral airspace disease, left greater than right compared with October 16. Cristian Fields MD on October 19, 2016 at 6:29 Board Certified Radiologist. This report was verified electronically.
[2016-10-19] MEDS: RESP: ALBUTEROL 2.5 MG/IPRATROPIUM 0.5 MG NEB (SCH) NEB ×3 (07:29→21:58)
--- NOTE | 2016-10-19 08:59 | HHI.PR ---
Subjective Remarks Follow-up non-ST elevation [place] 10/15/16-patient seen and examined, continue to experience chest pain and rated 3-4/10 in intensity; This a.m., however patient is refusing morphine.He Denies any shortness of breath 10/16/16-patient seen and examined, had heart catheterization with finding of three-vessel disease for which CT is has been consulted. Complains of phlegm/ nonproductive cough however afebrile 10/17/16-patient seen and examined; denies any chest pain or shortness of breath. Currently on IV antibiotics for pneumonia 10/18/16-patient seen and examined; complains of alternating chills and hot sensation overnight however afebrile. +nonproductive cough without any hemoptysis 10/19/16-patient seen and examined; afebrile and denies any chest cough production. Objective Vitals Vital Signs Date Time Temp Pulse Resp B/P Pulse Ox O2 Delivery O2 Flow Rate FiO2 10/19/16 07:45 88 10/19/16 07:45 99.3 88 18 92/56 95 10/19/16 07:31 97 Nasal Cannula 2.00 10/19/16 06:07 92 10/19/16 05:27 75 10/19/16 04:29 98.6 85 18 96/59 99 10/19/16 04:00 77 10/19/16 03:00 75 10/19/16 02:14 75 10/19/16 01:41 90 10/19/16 00:00 86 10/18/16 23:00 93 10/18/16 23:00 98.8 90 20 102/60 93 10/18/16 22:00 84 10/18/16 21:00 84 10/18/16 20:00 85 10/18/16 19:00 90 10/18/16 19:00 99.7 92 20 102/62 97 10/18/16 18:00 88 10/18/16 17:00 90 10/18/16 16:00 93 10/18/16 15:59 98.9 92 18 102/64 96 10/18/16 15:00 90 10/18/16 14:00 88 10/18/16 13:00 90 10/18/16 12:00 90 10/18/16 12:00 98.9 92 18 102/64 96 10/18/16 11:00 93 10/18/16 10:00 88 10/18/16 09:00 88 I/O 10/18/16 10/18/16 10/18/16 10/19/16 10/19/16 10/19/16 07:00 15:00 23:00 07:00 15:00 23:00 Intake Total 360 ml 1095 ml 500 ml Output Total 575 ml 675 ml 400 ml Balance -215 ml 420 ml 100 ml Intake Oral 360 ml 975 ml 400 ml IV Total 120 ml 100 ml Output Urine Total 575 ml 675 ml 400 ml # Bowel Movements 0 Result Diagram: 10/19/16 0540 10/19/16 0540 Objective Remarks GENERAL: NAD SKIN: Warm and dry. HEAD: Normocephalic. EYES: No scleral icterus. No injection or drainage. NECK: Supple, trachea midline. No JVD or lymphadenopathy. CARDIOVASCULAR: Regular rate and rhythm without murmurs, gallops, or rubs. RESPIRATORY: Breath sounds equal bilaterally. No accessory muscle use. GASTROINTESTINAL: Abdomen soft, non-tender, nondistended. MUSCULOSKELETAL: No cyanosis, or edema. BACK: Nontender without obvious deformity. No CVA tenderness. A/P Problem List: (1) NSTEMI (non-ST elevated myocardial infarction) ICD Code: I21.4 Status: Acute (2) Dehydration ICD Code: E86.0 Status: Acute (3) HTN (hypertension) ICD Code: I10 Status: Acute (4) DM (diabetes mellitus) ICD Code: E11.9 Status: Acute (5) HCAP (healthcare-associated pneumonia) ICD Code: J18.9 Status: Acute Assessment and Plan 71-year-old male with 1. 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 Continue with heparin drip/Vasotec/Statin/BB/NTG/ Morphine as needed. 2. NSTEMI: Patient with previous stents placement, patient is status post left heart catheterization with finding of Moderate left main and severe three- vessel coronary artery disease. Heparin drip/Vasotec/Statin/BB/NTG/Morphine as needed. 3. HCAP: Currently on IV Rocephin and azithromycin pending sputum culture. 4. HTN: continue low-dose Metoprolol. Monitor BP. 5. DM: Sliding scale w/ Accu-Cheks + Medium ISS and 6. DVT Prophylaxis: On Heparin gtt Ehsan Carpenter MD Oct 19, 2016 08:59
[2016-10-19] MEDS: SODIUM CHLORIDE 0.9% FLUSH 5 ML FLUSH IVF SCH ×2 (09:00→21:00)
[2016-10-19] MEDS: INSULIN DETEMIR 100 UNITS/ML VIAL SQ SCH ×2 (09:15→21:09)
[2016-10-19] MEDS: guaiFENesin E.R. 600 MG TAB PO SCH ×2 (09:16→21:09)
[2016-10-19] MEDS: ATORVASTATIN 80 MG TAB PO SCH (09:16)
[2016-10-19] MEDS: METOPROLOL TARTRATE 25 MG TAB PO SCH ×2 (09:16→21:00)
--- NOTE | 2016-10-19 13:04 | PD.CAR.PN ---
CVT Progress Note Subjective/Hospital Course: 71/ male visiting from [place] for the races, was out for a walk and developed chest pain , has admitted to chest pain off and on x 2 months , found to have NSTEMI Trop peaked at 21, has prior hx of CAD, [place] stent in 2005, underwent cardiac cath by Dr Lucas Beyer 10/15/16 found to have multivessel disease EF 50 % PMH: CAD/ [place], stent DM, HLP. peripheral neuropathy/ prior tobacco abuse 10/17 CXR noted yesterday, multilobar PNA, + fever, leukocytosis, started on CPAP coverage strep pneum neg, neg legionella, flu neg, blood cultures neg surgery rescheduled for Monday 10/23 appreciate Pulm input will continue nebs, pulm toileting 10/18 leukocytosis improving fevers improved, not sleeping well at night still has some congested cough continue nebs, pulm toileting consult pt 10/19 remains on , still has cough CXR noted, may need ABX changed, will need to discuss with Genny Joy (pulm) continue nebs / ezpap Objective: GENERAL: feels fair SKIN: Warm and dry. HEAD: Normocephalic. EYES: No scleral icterus. No injection or drainage. NECK: Supple, trachea midline. No JVD or lymphadenopathy. CARDIOVASCULAR: Regular rate and rhythm without murmurs, gallops, or rubs. RESPIRATORY: Breath sounds equal bilaterally. No accessory muscle use. some basilar crackles, some improvement GASTROINTESTINAL: Abdomen soft, non-tender, nondistended. MUSCULOSKELETAL: No cyanosis, or edema. BACK: Nontender without obvious deformity. No CVA tenderness. Vital Signs Date Time Temp Pulse Resp B/P Pulse Ox O2 Delivery O2 Flow Rate FiO2 10/19/16 07:45 88 10/19/16 07:45 99.3 88 18 92/56 95 10/19/16 07:31 97 Nasal Cannula 2.00 10/19/16 06:07 92 10/19/16 05:27 75 10/19/16 04:29 98.6 85 18 96/59 99 10/19/16 04:00 77 10/19/16 03:00 75 10/19/16 02:14 75 10/19/16 01:41 90 10/19/16 00:00 86 10/18/16 23:00 93 10/18/16 23:00 98.8 90 20 102/60 93 10/18/16 22:00 84 10/18/16 21:00 84 10/18/16 20:00 85 10/18/16 19:00 90 10/18/16 19:00 99.7 92 20 102/62 97 10/18/16 18:00 88 10/18/16 17:00 90 10/18/16 16:00 93 10/18/16 15:59 98.9 92 18 102/64 96 10/18/16 15:00 90 10/18/16 14:00 88 10/18/16 13:00 90 Labs: Laboratory Tests Test 10/19/16 05:40 White Blood Count 10.5 TH/MM3 (4.0-11.0) Red Blood Count 3.61 MIL/MM3 (4.50-5.90) Hemoglobin 11.1 GM/DL (13.0-17.0) Hematocrit 32.1 % (39.0-51.0) Mean Corpuscular Volume 88.8 FL (80.0-100.0) Mean Corpuscular Hemoglobin 30.7 PG (27.0-34.0) Mean Corpuscular Hemoglobin 34.6 % Concent (32.0-36.0) Red Cell Distribution Width 14.0 % (11.6-17.2) Platelet Count 291 TH/MM3 (150-450) Mean Platelet Volume 7.2 FL (7.0-11.0) Neutrophils (%) (Auto) 71.3 % (16.0-70.0) Lymphocytes (%) (Auto) 13.7 % (9.0-44.0) Monocytes (%) (Auto) 13.2 % (0.0-8.0) Eosinophils (%) (Auto) 1.5 % (0.0-4.0) Basophils (%) (Auto) 0.3 % (0.0-2.0) Neutrophils # (Auto) 7.4 TH/MM3 (1.8-7.7) Lymphocytes # (Auto) 1.4 TH/MM3 (1.0-4.8) Monocytes # (Auto) 1.4 TH/MM3 (0-0.9) Eosinophils # (Auto) 0.2 TH/MM3 (0-0.4) Basophils # (Auto) 0.0 TH/MM3 (0-0.2) CBC Comment DIFF FINAL Differential Comment Activated Partial 42.3 SEC Thromboplast Time (24.3-30.1) Sodium Level 139 MEQ/L (136-145) Potassium Level 4.1 MEQ/L (3.5-5.1) Chloride Level 105 MEQ/L (98-107) Carbon Dioxide Level 27.2 MEQ/L (21.0-32.0) Anion Gap 7 MEQ/L (5-15) Blood Urea Nitrogen 12 MG/DL (7-18) Creatinine 1.01 MG/DL (0.60-1.30) Estimat Glomerular Filtration 73 ML/MIN (>89) Rate Random Glucose 162 MG/DL (74-106) Calcium Level 8.4 MG/DL (8.5-10.1) Result Diagram: 10/19/1653910/19/16539 (1) NSTEMI (non-ST elevated myocardial infarction) Plan: . Cath shows severe multivessel CAD, EF ~50%. continue beta oj, aspirin, heparin. BP's too low for ERAL-I. Await CABG. scheduled for Sunday (2) Hyperlipidemia Plan: Suboptimal lipid profile. Ideally needs statin though AST elevated. close monitoring of LFTs if he is to remain on statin therapy. (3) Ischemic cardiomyopathy Plan: EF does appear closer to 35-40% by echo. Rec continue beta oj. BP's too low for EARL-I. (4) DM (diabetes mellitus) Plan: on insulin sliding scale, diabetic diet add levemir (5) HTN (hypertension) Plan: BP on lower side (6) Community acquired pneumonia Plan: on rocephin and zithromax,/ may need antibiotic change/ will discuss with Dr Joy Problem Qualifiers (1) Hyperlipidemia: Qualified Code: E78.2 - Mixed hyperlipidemia Jessica Vargas Oct 19, 2016 13:03
[2016-10-19] MEDS ORDERED: POTASSIUM CHLORIDE 20 MEQ CONTROLLED RELEASE TAB PO ONE (13:30)
[2016-10-19] MEDS ORDERED: FUROSEMIDE 40 MG/4 ML VIAL IV PUSH ONE (13:30)
[2016-10-19] MEDS: SODIUM CHLORIDE 0.9% FLUSH 5 ML FLUSH IV FLUSH SCH ×2 (13:34→21:07)
[2016-10-19] MEDS: AZITHROMYCIN INJ 500 MG in SODIUM CHLOR 0.9% 250 ML INJ 250 ML IV SCH (17:36)
[2016-10-19] MEDS: cefTRIAXone INJ 1,000 MG in SODIUM CHLORIDE 0.9% INJ 100 ML IV SCH (21:01)
[2016-10-19] MEDS: methylPREDNISolone SOD SUCC 40 MG/1 ML VIAL IV PUSH SCH (21:05)
[2016-10-20] VITALS (29 sets, daily range): BP systolic 95–103; BP diastolic 62–70; PULSE 72–108; RESP 17–22; TEMP 95.5–98.5; O2SAT 93–96
[2016-10-20 04:11] LABS: APTT (PATIENT) 39.9 SEC (24.3-30.1)
[2016-10-20 04:19] LABS: BICARBONATE 24.4 MEQ/L (21.0-32.0); POTASSIUM 3.7 MEQ/L (3.5-5.1)
[2016-10-20] MEDS: HEPARIN-D5W INJ 250 ML IV SCH (04:52)
[2016-10-20] MEDS: NITROGLYCERIN 2% OINT 1 GM PACKET TOPICAL SCH ×4 (06:00→17:42)
[2016-10-20] MEDS: INSULIN ASPART SUPPLEMENTAL SCALE SQ SCH ×4 (06:05→23:45)
[2016-10-20] MEDS: PANTOPRAZOLE SOD 40 MG DELAYED RELEASE TAB PO SCH (06:06)
[2016-10-20] MEDS: RESP: ALBUTEROL 2.5 MG/IPRATROPIUM 0.5 MG NEB (SCH) NEB (07:43)
--- NOTE | 2016-10-20 08:08 | RADRPT ---
EXAM DATE/TIME: 10/20/2016 07:48 [facility] COMPARISON: CHEST SINGLE AP, October 19, 2016, 4:40. INDICATIONS : Shortness of breath. MEDICAL HISTORY : Cardiovascular disease. SURGICAL HISTORY : Stent placement. ENCOUNTER: Initial ACUITY: 4 - 6 days PAIN SCORE: 0/10 LOCATION: Bilateral chest FINDINGS: A single view of the chest demonstrates airspace disease in the upper lobes greater in the left upper lobe. Heart normal in size. The cardiomediastinal contours are unremarkable. Osseous structures ar e intact. CONCLUSION: Improving bilateral airspace disease mainly in the upper lobes. Ehsan Recinos MD on October 20, 2016 at 8:05 Board Certified Radiologist. This report was verified electronically.
[2016-10-20] MEDS ORDERED: INSULIN DETEMIR 100 UNITS/ML VIAL SQ SCH (09:00)
[2016-10-20] MEDS ORDERED: SODIUM CHLORIDE 0.65% NASAL SPRAY 45 ML BTL EACH NARE PRN (10:30)
--- NOTE | 2016-10-20 10:30 | PD.CAR.PN ---
CVT Progress Note Subjective/Hospital Course: 71/ male visiting from [place] for the races, was out for a walk and developed chest pain , has admitted to chest pain off and on x 2 months , found to have NSTEMI Trop peaked at 21, has prior hx of CAD, [place] stent in 2005, underwent cardiac cath by Dr Lucas Beyer 10/15/16 found to have multivessel disease EF 50 % PMH: CAD/ [place], stent DM, HLP. peripheral neuropathy/ prior tobacco abuse 10/17 CXR noted yesterday, multilobar PNA, + fever, leukocytosis, started on CPAP coverage strep pneum neg, neg legionella, flu neg, blood cultures neg surgery rescheduled for Monday 10/23 appreciate Pulm input will continue nebs, pulm toileting 10/18 leukocytosis improving fevers improved, not sleeping well at night still has some congested cough continue nebs, pulm toileting consult pt 10/19 remains on , still has cough CXR noted, may need ABX changed, will need to discuss with Genny Joy (pulm) continue nebs / ezpap 10/20 no fevers last night, feels fair notices HR increases with albuterol nebs/ changed to atrovent on IV diuresis , BNP 1100 scheduled for surgery on Sunday Objective: GENERAL: SKIN: Warm and dry. HEAD: Normocephalic. EYES: No scleral icterus. No injection or drainage. NECK: Supple, trachea midline. No JVD or lymphadenopathy. CARDIOVASCULAR: Regular rate and rhythm without murmurs, gallops, or rubs. RESPIRATORY: few crackles in bases Breath sounds equal bilaterally. No accessory muscle use. GASTROINTESTINAL: Abdomen soft, non-tender, nondistended. MUSCULOSKELETAL: No cyanosis, or edema. BACK: Nontender without obvious deformity. No CVA tenderness. Vital Signs Date Time Temp Pulse Resp B/P Pulse Ox O2 Delivery O2 Flow Rate FiO2 10/20/16 07:50 96 Nasal Cannula 2.00 10/20/16 07:32 100 10/20/16 07:32 98.0 100 22 103/67 96 10/20/16 06:02 96 10/20/16 05:36 87 10/20/16 04:43 72 10/20/16 03:00 88 10/20/16 03:00 98.5 91 17 98/66 94 10/20/16 02:20 82 10/20/16 01:30 80 10/20/16 00:00 84 10/19/16 23:03 97.6 89 19 90/69 95 10/19/16 23:00 86 10/19/16 22:00 91 10/19/16 22:00 94 Nasal Cannula 2.00 10/19/16 21:00 92 10/19/16 20:00 100 10/19/16 19:30 100.1 95 17 99/63 93 10/19/16 19:00 93 10/19/16 18:00 97 10/19/16 17:00 86 10/19/16 16:00 108 10/19/16 15:27 100.3 93 18 106/74 93 10/19/16 15:27 88 10/19/16 15:00 91 10/19/16 14:00 100 10/19/16 13:00 92 10/19/16 12:00 83 10/19/16 11:30 99.7 88 18 97/62 94 10/19/16 11:30 88 10/19/16 11:00 88 Labs: Laboratory Tests Test 10/20/16 03:37 Activated Partial 39.9 SEC Thromboplast Time (24.3-30.1) Sodium Level 138 MEQ/L (136-145) Potassium Level 3.7 MEQ/L (3.5-5.1) Chloride Level 103 MEQ/L (98-107) Carbon Dioxide Level 24.4 MEQ/L (21.0-32.0) Anion Gap 11 MEQ/L (5-15) Blood Urea Nitrogen 14 MG/DL (7-18) Creatinine 1.00 MG/DL (0.60-1.30) Estimat Glomerular Filtration 74 ML/MIN (>89) Rate Random Glucose 220 MG/DL (74-106) Calcium Level 8.7 MG/DL (8.5-10.1) Result Diagram: 10/19/16 0540 10/20/16 0337 (1) NSTEMI (non-ST elevated myocardial infarction) Plan: . Cath shows severe multivessel CAD, EF ~50%. continue beta oj, aspirin, heparin. BP's too low for EARL-I. Await CABG. scheduled for Sunday (2) Hyperlipidemia Plan: Suboptimal lipid profile. Ideally needs statin though AST elevated. close monitoring of LFTs if he is to remain on statin therapy. (3) Ischemic cardiomyopathy Plan: EF does appear closer to 35-40% by echo. Rec continue beta oj. BP's too low for EARL-I. continue diuresis (4) DM (diabetes mellitus) Plan: on insulin sliding scale, diabetic diet add levemir (5) HTN (hypertension) Plan: BP on lower side (6) Community acquired pneumonia Plan: on rocephin and zithromax,/ Problem Qualifiers (1) Hyperlipidemia: Qualified Code: E78.2 - Mixed hyperlipidemia Jessica Vargas Oct 20, 2016 10:30
[2016-10-20] MEDS: ATORVASTATIN 80 MG TAB PO SCH (11:00)
[2016-10-20] MEDS: guaiFENesin E.R. 600 MG TAB PO SCH ×2 (11:00→21:00)
[2016-10-20] MEDS ORDERED: POTASSIUM CHLORIDE 20 MEQ CONTROLLED RELEASE TAB PO ONE (11:00)
[2016-10-20] MEDS: METOPROLOL TARTRATE 25 MG TAB PO SCH ×2 (11:01→23:36)
[2016-10-20] MEDS: POTASSIUM CHLORIDE 20 MEQ CONTROLLED RELEASE TAB PO SCH (11:01)
[2016-10-20] MEDS: INSULIN DETEMIR 100 UNITS/ML VIAL SQ SCH ×2 (11:02→23:47)
[2016-10-20] MEDS: FUROSEMIDE 40 MG/4 ML VIAL IV PUSH SCH (11:02)
[2016-10-20] MEDS: SODIUM CHLORIDE 0.9% FLUSH 5 ML FLUSH IV FLUSH SCH ×2 (11:03→23:37)
[2016-10-20] MEDS: methylPREDNISolone SOD SUCC 40 MG/1 ML VIAL IV PUSH SCH ×2 (11:03→23:37)
--- NOTE | 2016-10-20 12:46 | HHI.PR ---
Subjective Remarks Follow-up non-ST elevation [place] 10/15/16-patient seen and examined, continue to experience chest pain and rated 3-4/10 in intensity; This a.m., however patient is refusing morphine.He Denies any shortness of breath 10/16/16-patient seen and examined, had heart catheterization with finding of three-vessel disease for which CT is has been consulted. Complains of phlegm/ nonproductive cough however afebrile 10/17/16-patient seen and examined; denies any chest pain or shortness of breath. Currently on IV antibiotics for pneumonia 10/18/16-patient seen and examined; complains of alternating chills and hot sensation overnight however afebrile. +nonproductive cough without any hemoptysis 10/19/16-patient seen and examined; afebrile and denies any chest cough production. 10/20/16-patient seen and examined, her glucose up, no complaint of chest pain or shortness of breath. Afebrile. by the bedside Objective Vitals Vital Signs Date Time Temp Pulse Resp B/P Pulse Ox O2 Delivery O2 Flow Rate FiO2 10/20/16 07:50 96 Nasal Cannula 2.00 10/20/16 07:32 100 10/20/16 07:32 98.0 100 22 103/67 96 10/20/16 06:02 96 10/20/16 05:36 87 10/20/16 04:43 72 10/20/16 03:00 88 10/20/16 03:00 98.5 91 17 98/66 94 10/20/16 02:20 82 10/20/16 01:30 80 10/20/16 00:00 84 10/19/16 23:03 97.6 89 19 90/69 95 10/19/16 23:00 86 10/19/16 22:00 91 10/19/16 22:00 94 Nasal Cannula 2.00 10/19/16 21:00 92 10/19/16 20:00 100 10/19/16 19:30 100.1 95 17 99/63 93 10/19/16 19:00 93 10/19/16 18:00 97 10/19/16 17:00 86 10/19/16 16:00 108 10/19/16 15:27 100.3 93 18 106/74 93 10/19/16 15:27 88 10/19/16 15:00 91 10/19/16 14:00 100 10/19/16 13:00 92 I/O 10/19/16 10/19/16 10/19/16 10/20/16 10/20/16 10/20/16 07:00 15:00 23:00 07:00 15:00 23:00 Intake Total 500 ml 910 ml 440 ml Output Total 400 ml 900 ml 550 ml Balance 100 ml 10 ml -110 ml Intake Oral 400 ml 800 ml 240 ml IV Total 100 ml 110 ml 200 ml Output Urine Total 400 ml 900 ml 550 ml # Bowel Movements 0 Result Diagram: 10/19/16 0540 10/20/16 0337 Objective Remarks GENERAL: NAD SKIN: Warm and dry. HEAD: Normocephalic. EYES: No scleral icterus. No injection or drainage. NECK: Supple, trachea midline. No JVD or lymphadenopathy. CARDIOVASCULAR: Regular rate and rhythm without murmurs, gallops, or rubs. RESPIRATORY: Breath sounds equal bilaterally. No accessory muscle use. GASTROINTESTINAL: Abdomen soft, non-tender, nondistended. MUSCULOSKELETAL: No cyanosis, or edema. BACK: Nontender without obvious deformity. No CVA tenderness. A/P Problem List: (1) NSTEMI (non-ST elevated myocardial infarction) ICD Code: I21.4 Status: Acute (2) Dehydration ICD Code: E86.0 Status: Acute (3) HTN (hypertension) ICD Code: I10 Status: Acute (4) DM (diabetes mellitus) ICD Code: E11.9 Status: Acute (5) HCAP (healthcare-associated pneumonia) ICD Code: J18.9 Status: Acute Assessment and Plan 71-year-old male with 1. 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 Continue with heparin drip/Vasotec/Statin/BB/NTG/ Morphine as needed. 2. NSTEMI: Patient with previous stents placement, patient is status post left heart catheterization with finding of Moderate left main and severe three- vessel coronary artery disease. Heparin drip/Vasotec/Statin/BB/NTG/Morphine as needed. 3. Acute systolic CHF: EF 35%, currently on Lasix. EARL inhibitor contraindicated secondary to low BP. Continue beta oj. 4. HCAP: Improving, repeat chest x-ray noted and review with improvement. Currently on IV Rocephin and azithromycin 5. HTN: continue low-dose Metoprolol. Monitor BP. 6. DM: Levemir 5 units every 12, Sliding scale w/ Accu-Cheks + Medium ISS 7. DVT Prophylaxis: On Heparin gtt Ehsan Carpenter MD Oct 20, 2016 12:46
[2016-10-20] MEDS: RESP: IPRATROPIUM 0.5 MG/2.5 ML NEB NEB SCH ×2 (16:00→21:25)
[2016-10-20] MEDS: AZITHROMYCIN INJ 500 MG in SODIUM CHLOR 0.9% 250 ML INJ 250 ML IV SCH (17:41)
[2016-10-20] MEDS: LORazepam 1 MG TAB PO PRN (23:34)
[2016-10-20] MEDS: BENZONATATE 100 MG CAP PO PRN (23:34)
[2016-10-20] MEDS: cefTRIAXone INJ 1,000 MG in SODIUM CHLORIDE 0.9% INJ 100 ML IV SCH (23:37)
[2016-10-20] MEDS: ACETAMINOPHEN/HYDROcodone 325 MG/5 MG TAB PO PRN (23:42)
[2016-10-21] VITALS (27 sets, daily range): BP systolic 86–96; BP diastolic 54–70; PULSE 83–106; RESP 16–18; TEMP 95.5–98.2; O2SAT 92–97
[2016-10-21] MEDS: HEPARIN-D5W INJ 250 ML IV SCH ×2 (00:10→16:29)
[2016-10-21 01:49] LABS: HEMATOCRIT 33.9 % (39.0-51.0); REVIEW FLAG FINAL
[2016-10-21] MEDS: RESP: IPRATROPIUM 0.5 MG/2.5 ML NEB NEB SCH ×3 (04:00→20:05)
[2016-10-21 04:25] LABS: APTT (PATIENT) 41.8 SEC (24.3-30.1)
[2016-10-21] MEDS: NITROGLYCERIN 2% OINT 1 GM PACKET TOPICAL SCH ×4 (06:00→17:02)
[2016-10-21] MEDS: PANTOPRAZOLE SOD 40 MG DELAYED RELEASE TAB PO SCH (06:33)
[2016-10-21] MEDS: ACETAMINOPHEN/HYDROcodone 325 MG/5 MG TAB PO PRN (06:36)
[2016-10-21] MEDS: BENZONATATE 100 MG CAP PO PRN ×2 (06:36→16:20)
[2016-10-21] MEDS: INSULIN ASPART SUPPLEMENTAL SCALE SQ SCH ×4 (06:37→22:04)
[2016-10-21] MEDS: FUROSEMIDE 40 MG/4 ML VIAL IV PUSH SCH (09:00)
[2016-10-21] MEDS: INSULIN DETEMIR 100 UNITS/ML VIAL SQ SCH ×2 (09:00→22:04)
[2016-10-21] MEDS: SODIUM CHLORIDE 0.9% FLUSH 5 ML FLUSH IV FLUSH SCH ×2 (09:00→21:00)
[2016-10-21] MEDS: ATORVASTATIN 80 MG TAB PO SCH (09:00)
[2016-10-21] MEDS: guaiFENesin E.R. 600 MG TAB PO SCH ×2 (09:00→22:03)
[2016-10-21] MEDS: POTASSIUM CHLORIDE 20 MEQ CONTROLLED RELEASE TAB PO SCH (09:00)
[2016-10-21] MEDS: methylPREDNISolone SOD SUCC 40 MG/1 ML VIAL IV PUSH SCH (09:00)
[2016-10-21] MEDS: METOPROLOL TARTRATE 25 MG TAB PO SCH ×2 (09:00→21:00)
--- NOTE | 2016-10-21 13:09 | HHI.PR ---
Subjective Remarks Follow-up non-ST elevation [place] 10/15/16-patient seen and examined, continue to experience chest pain and rated 3-4/10 in intensity; This a.m., however patient is refusing morphine.He Denies any shortness of breath 10/16/16-patient seen and examined, had heart catheterization with finding of three-vessel disease for which CT is has been consulted. Complains of phlegm/ nonproductive cough however afebrile 10/17/16-patient seen and examined; denies any chest pain or shortness of breath. Currently on IV antibiotics for pneumonia 10/18/16-patient seen and examined; complains of alternating chills and hot sensation overnight however afebrile. +nonproductive cough without any hemoptysis 10/19/16-patient seen and examined; afebrile and denies any chest cough production. 10/20/16-patient seen and examined, her glucose up, no complaint of chest pain or shortness of breath. Afebrile. by the bedside 10/21/16-patient seen and examined, had one episode of hemoptysis last night however resolved. Blood glucose labile and BP soft but no other issues. Objective Vitals Vital Signs Date Time Temp Pulse Resp B/P Pulse Ox O2 Delivery O2 Flow Rate FiO2 10/21/16 12:00 93 10/21/16 11:00 88 10/21/16 11:00 97.8 96 17 93/62 94 10/21/16 10:00 96 10/21/16 09:00 95 10/21/16 08:00 86 10/21/16 07:00 83 10/21/16 07:00 97.8 93 17 90/62 95 10/21/16 06:22 97.5 95 16 96/62 92 10/21/16 06:11 106 10/21/16 04:00 86 10/21/16 03:00 84 10/21/16 02:00 92 10/21/16 01:28 95/63 10/21/16 01:27 95.5 92 18 86/57 92 10/21/16 01:00 89 10/21/16 00:00 94 10/20/16 23:00 105 10/20/16 22:00 98 10/20/16 21:41 95.5 99 18 95/62 94 10/20/16 21:27 93 10/20/16 21:00 96 10/20/16 20:00 100 10/20/16 19:00 101 10/20/16 18:00 99 10/20/16 17:00 102 10/20/16 16:00 104 10/20/16 15:30 97.6 105 20 99/70 94 10/20/16 15:30 105 10/20/16 15:00 97 10/20/16 14:00 92 I/O 10/20/16 10/20/16 10/20/16 10/21/16 10/21/16 10/21/16 07:00 15:00 23:00 07:00 15:00 23:00 Intake Total 440 ml 998 ml 540 ml Output Total 550 ml 800 ml 225 ml Balance -110 ml 198 ml 315 ml Intake Oral 240 ml 875 ml 320 ml IV Total 200 ml 123 ml 220 ml Output Urine Total 550 ml 800 ml 225 ml # Bowel Movements 1 0 Result Diagram: 10/21/16 0111 10/20/16 0337 Objective Remarks GENERAL: NAD SKIN: Warm and dry. HEAD: Normocephalic. EYES: No scleral icterus. No injection or drainage. NECK: Supple, trachea midline. No JVD or lymphadenopathy. CARDIOVASCULAR: Regular rate and rhythm without murmurs, gallops, or rubs. RESPIRATORY: Breath sounds equal bilaterally. No accessory muscle use. GASTROINTESTINAL: Abdomen soft, non-tender, nondistended. MUSCULOSKELETAL: No cyanosis, or edema. BACK: Nontender without obvious deformity. No CVA tenderness. A/P Problem List: (1) NSTEMI (non-ST elevated myocardial infarction) ICD Code: I21.4 Status: Acute (2) Dehydration ICD Code: E86.0 Status: Acute (3) HTN (hypertension) ICD Code: I10 Status: Acute (4) DM (diabetes mellitus) ICD Code: E11.9 Status: Acute (5) HCAP (healthcare-associated pneumonia) ICD Code: J18.9 Status: Acute Assessment and Plan 71-year-old male with 1. 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 Continue with heparin drip/Vasotec/Statin/BB/NTG/ Morphine as needed. 2. NSTEMI: Patient with previous stents placement, patient is status post left heart catheterization with finding of Moderate left main and severe three- vessel coronary artery disease. Heparin drip/Vasotec/Statin/BB/NTG/Morphine as needed. 3. Acute systolic CHF: EF 35%, currently on Lasix. EARL inhibitor contraindicated secondary to low BP. Continue beta oj. 4. HCAP: Hemoptysis 1, now resolved. Currently on IV Rocephin and azithromycin . Appreciate input from pulmonary medicine 5. HTN: continue low-dose Metoprolol. Monitor BP. 6. DM: Levemir 5 units every 12 however may increase to 10 units twice a day secondary to labile BG, Sliding scale w/ Accu-Cheks + Medium ISS 7. DVT Prophylaxis: On Heparin gtt Ehsan Carpenter MD Oct 21, 2016 13:09
[2016-10-21] MEDS: AZITHROMYCIN INJ 500 MG in SODIUM CHLOR 0.9% 250 ML INJ 250 ML IV SCH (17:02)
--- NOTE | 2016-10-21 19:19 | RADRPT ---
EXAM DATE/TIME: 10/21/2016 18:53 [facility] COMPARISON: No previous studies available for comparison. INDICATIONS : Abdominal pain. Distention. MEDICAL HISTORY : None. SURGICAL HISTORY : None. ENCOUNTER: Initial ACUITY: 3 days PAIN SCORE: 8/10 LOCATION: Bilateral lower quadrant FINDINGS: There is mild gaseous distention seen throughout small bowel and large bowel. The appearance is nonsp ecific. Osseous structures are intact. CONCLUSION: Nonspecific bowel gas pattern as above. Buster Grimes MD on October 21, 2016 at 19:17 Board Certified Radiologist. This report was verified electronically.
[2016-10-21] MEDS ORDERED: BISACODYL 10 MG SUPP RECTAL ONE (20:15)
[2016-10-21] MEDS ORDERED: SIMETHICONE 80 MG CHEWABLE TAB CHEW ONE (20:15)
[2016-10-21] MEDS: cefTRIAXone INJ 1,000 MG in SODIUM CHLORIDE 0.9% INJ 100 ML IV SCH (22:02)
[2016-10-22] VITALS (28 sets, daily range): BP systolic 90–103; BP diastolic 63–72; PULSE 84–104; RESP 16–18; TEMP 97.2–98; O2SAT 93–97
[2016-10-22] MEDS: BENZONATATE 100 MG CAP PO PRN ×3 (03:46→21:37)
[2016-10-22] MEDS: NITROGLYCERIN 2% OINT 1 GM PACKET TOPICAL SCH ×4 (06:00→18:00)
[2016-10-22] MEDS: PANTOPRAZOLE SOD 40 MG DELAYED RELEASE TAB PO SCH (06:03)
[2016-10-22] MEDS: INSULIN ASPART SUPPLEMENTAL SCALE SQ SCH ×4 (06:03→20:27)
[2016-10-22 07:18] LABS: APTT (PATIENT) 42.5 SEC (24.3-30.1)
[2016-10-22] MEDS: RESP: IPRATROPIUM 0.5 MG/2.5 ML NEB NEB SCH ×3 (07:38→20:11)
[2016-10-22] MEDS: FUROSEMIDE 40 MG/4 ML VIAL IV PUSH SCH (08:39)
[2016-10-22] MEDS: methylPREDNISolone SOD SUCC 40 MG/1 ML VIAL IV PUSH SCH (08:40)
[2016-10-22] MEDS: ACETAMINOPHEN/HYDROcodone 325 MG/5 MG TAB PO PRN ×2 (08:41→22:25)
[2016-10-22] MEDS: ATORVASTATIN 80 MG TAB PO SCH (08:42)
[2016-10-22] MEDS: guaiFENesin E.R. 600 MG TAB PO SCH ×2 (08:42→20:26)
[2016-10-22] MEDS: POTASSIUM CHLORIDE 20 MEQ CONTROLLED RELEASE TAB PO SCH (08:43)
[2016-10-22] MEDS: METOPROLOL TARTRATE 25 MG TAB PO SCH ×2 (08:46→21:00)
[2016-10-22] MEDS: SODIUM CHLORIDE 0.9% FLUSH 5 ML FLUSH IV FLUSH SCH ×2 (08:58→20:26)
[2016-10-22] MEDS: INSULIN DETEMIR 100 UNITS/ML VIAL SQ SCH ×2 (09:00→20:27)
[2016-10-22] MEDS: LORazepam 1 MG TAB PO PRN ×2 (09:21→22:25)
--- NOTE | 2016-10-22 11:43 | HHI.PR ---
Subjective Remarks Follow-up non-ST elevation [place] 10/15/16-patient seen and examined, continue to experience chest pain and rated 3-4/10 in intensity; This a.m., however patient is refusing morphine.He Denies any shortness of breath 10/16/16-patient seen and examined, had heart catheterization with finding of three-vessel disease for which CT is has been consulted. Complains of phlegm/ nonproductive cough however afebrile 10/17/16-patient seen and examined; denies any chest pain or shortness of breath. Currently on IV antibiotics for pneumonia 10/18/16-patient seen and examined; complains of alternating chills and hot sensation overnight however afebrile. +nonproductive cough without any hemoptysis 10/19/16-patient seen and examined; afebrile and denies any chest cough production. 10/20/16-patient seen and examined, her glucose up, no complaint of chest pain or shortness of breath. Afebrile. by the bedside 10/21/16-patient seen and examined, had one episode of hemoptysis last night however resolved. Blood glucose labile and BP soft but no other issues. 10/22/16-patient seen and examined, reported some being brought sputum last night. Complains of bloating. Objective Vitals Vital Signs Date Time Temp Pulse Resp B/P Pulse Ox O2 Delivery O2 Flow Rate FiO2 10/22/16 09:48 18 10/22/16 09:00 93 10/22/16 08:00 93 10/22/16 07:15 97.6 93 18 94/67 94 10/22/16 07:00 92 10/22/16 06:00 104 10/22/16 05:00 91 10/22/16 04:00 101 10/22/16 03:00 88 10/22/16 03:00 97.6 89 90/63 93 10/22/16 02:00 87 10/22/16 01:00 86 10/22/16 00:00 99 10/21/16 23:00 98.0 100 88/54 92 10/21/16 23:00 95 10/21/16 22:00 95 10/21/16 21:00 99 10/21/16 20:05 93 21 10/21/16 20:00 94 10/21/16 19:00 95 10/21/16 19:00 98.2 94 96/66 97 10/21/16 18:00 88 10/21/16 17:00 92 10/21/16 16:00 98 10/21/16 15:00 98.1 96 16 96/70 95 10/21/16 15:00 98 10/21/16 14:00 92 10/21/16 13:00 96 10/21/16 12:00 93 I/O 10/21/16 10/21/16 10/21/16 10/22/16 10/22/16 10/22/16 07:00 15:00 23:00 07:00 15:00 23:00 Intake Total 540 ml 960 ml 480 ml Output Total 225 ml 750 ml 350 ml Balance 315 ml 210 ml 130 ml Intake Oral 320 ml 710 ml 480 ml IV Total 220 ml 250 ml Output Urine Total 225 ml 750 ml 350 ml # Bowel Movements 0 Result Diagram: 10/21/16 0111 10/20/16 0337 Objective Remarks GENERAL: NAD SKIN: Warm and dry. HEAD: Normocephalic. EYES: No scleral icterus. No injection or drainage. NECK: Supple, trachea midline. No JVD or lymphadenopathy. CARDIOVASCULAR: Regular rate and rhythm without murmurs, gallops, or rubs. RESPIRATORY: Breath sounds equal bilaterally. No accessory muscle use. GASTROINTESTINAL: Abdomen soft, non-tender, nondistended. MUSCULOSKELETAL: No cyanosis, or edema. BACK: Nontender without obvious deformity. No CVA tenderness. A/P Problem List: (1) NSTEMI (non-ST elevated myocardial infarction) ICD Code: I21.4 Status: Acute (2) Dehydration ICD Code: E86.0 Status: Acute (3) HTN (hypertension) ICD Code: I10 Status: Acute (4) DM (diabetes mellitus) ICD Code: E11.9 Status: Acute (5) HCAP (healthcare-associated pneumonia) ICD Code: J18.9 Status: Acute Assessment and Plan 71-year-old male with 1. Moderate left main and severe three-vessel coronary artery disease: Appreciate input from CTS and and plan for CABG possible tomorrow Sunday, . Continue with heparin drip/Vasotec/Statin/BB/NTG/Morphine as needed. 2. NSTEMI: Patient with previous stents placement, patient is status post left heart catheterization with finding of Moderate left main and severe three- vessel coronary artery disease. Heparin drip/Vasotec/Statin/BB/NTG/Morphine as needed. 3. Acute systolic CHF: EF 35%, currently on Lasix. EARL inhibitor contraindicated secondary to low BP. Continue beta oj. 4. HCAP: Currently on IV Rocephin and azithromycin . Appreciate input from pulmonary medicine 5. HTN: continue low-dose Metoprolol. Monitor BP. 6. DM: Continue Levemir 5 units every 12 , Sliding scale w/ Accu-Cheks + Medium ISS 7. DVT Prophylaxis: On Heparin gtt Ehsan Carpenter MD Oct 22, 2016 11:43
--- NOTE | 2016-10-22 13:25 | RADRPT ---
EXAM DATE/TIME: 10/22/2016 12:39 [facility] COMPARISON: CHEST SINGLE AP, October 20, 2016, 7:48. INDICATIONS : Short of Breath, Chest Pain, Evaluate for Pneumonia. MEDICAL HISTORY : Cardiovascular disease. SURGICAL HISTORY : Stent placement. ENCOUNTER: Subsequent ACUITY: 1 week PAIN SCORE: 4/10 LOCATION: Bilateral chest FINDINGS: Portable AP view of the chest demonstrates a normal-sized cardiac silhouette. There is bilateral airs pace consolidation that is or pronounced in the mid and upper lung zones bilaterally. This appears in creased in the right upper lung zone and left midlung zone. No pleural effusion or pneumothorax is id entified. CONCLUSION: Bilateral airspace consolidation remains present and has increased in the right lung apex and left mi dlung zone. This could represent an infectious process in the appropriate clinical setting. Robert Kaplan MD on October 22, 2016 at 13:23 Board Certified Radiologist. This report was verified electronically.
[2016-10-22] MEDS: SIMETHICONE 80 MG CHEWABLE TAB CHEW PRN ×2 (13:39→17:20)
[2016-10-22 15:55] LABS: BICARBONATE 26.7 MEQ/L (21.0-32.0); POTASSIUM 3.8 MEQ/L (3.5-5.1)
[2016-10-22] MEDS: AZITHROMYCIN INJ 500 MG in SODIUM CHLOR 0.9% 250 ML INJ 250 ML IV SCH (17:21)
[2016-10-22] MEDS: cefTRIAXone INJ 1,000 MG in SODIUM CHLORIDE 0.9% INJ 100 ML IV SCH (20:26)
[2016-10-23] VITALS (24 sets, daily range): BP systolic 91–98; BP diastolic 54–69; PULSE 75–96; RESP 16–22; TEMP 97.9–98.9; O2SAT 89–99
[2016-10-23] MEDS ORDERED: EPINEPHrine HCL (1:1000) 30 MG/30 ML VIAL IV ONE (05:00)
[2016-10-23] MEDS ORDERED: HEPARIN SODIUM - SQ 10,000 UNITS/ML VIAL SQ ONE (05:00)
[2016-10-23] MEDS ORDERED: CALCIUM CHLORIDE 10% SOLN 1 GRAM/10 ML SYR IV ONE (05:00)
[2016-10-23] MEDS ORDERED: PROPOFOL 1000 MG/100 ML INJ 100 ML IV ONE (05:00)
[2016-10-23] MEDS ORDERED: MAGNESIUM SULFATE 1000 MG/2 ML VIAL (PED) IV ONE (05:00)
[2016-10-23] MEDS ORDERED: PROTAMINE SULFATE 250 MG/25 ML VIAL IV ONE ×2 (05:00→09:20)
[2016-10-23] MEDS ORDERED: GLYCOPYRROLATE 0.2 MG/ML VIAL IV ONE (05:00)
[2016-10-23] MEDS ORDERED: PHENYLEPHRINE HCL 10 MG/ML VIAL IV ONE (05:00)
[2016-10-23] MEDS ORDERED: ARTIFICIAL TEARS OPTH OINT 3.5 APPLIC/3.5 GM TUBO ONE (05:00)
[2016-10-23] MEDS: METOPROLOL TARTRATE 25 MG TAB PO SCH ×2 (05:40→21:00)
[2016-10-23] MEDS: PANTOPRAZOLE SOD 40 MG DELAYED RELEASE TAB PO SCH (05:54)
[2016-10-23] MEDS: NITROGLYCERIN 2% OINT 1 GM PACKET TOPICAL SCH ×5 (05:55→23:16)
[2016-10-23] MEDS: INSULIN ASPART SUPPLEMENTAL SCALE SQ SCH ×4 (05:55→21:00)
[2016-10-23] MEDS: HEPARIN SODIUM - SQ 10,000 UNITS/ML VIAL ONE ×2 (06:28→06:30)
[2016-10-23] MEDS ORDERED: VANCOMYCIN HCL 1000 MG VIAL ONE (06:28)
[2016-10-23] MEDS ORDERED: POTASSIUM CHLORIDE 40 MEQ/20 ML VIAL ONE (06:56)
[2016-10-23] MEDS: RESP: IPRATROPIUM 0.5 MG/2.5 ML NEB NEB SCH ×2 (07:13→20:54)
[2016-10-23] MEDS: guaiFENesin E.R. 600 MG TAB PO SCH ×2 (09:00→19:19)
[2016-10-23] MEDS: methylPREDNISolone SOD SUCC 40 MG/1 ML VIAL IV PUSH SCH (09:00)
[2016-10-23] MEDS: ATORVASTATIN 80 MG TAB PO SCH (09:00)
[2016-10-23] MEDS: SODIUM CHLORIDE 0.9% FLUSH 5 ML FLUSH IV FLUSH SCH ×2 (09:00→19:20)
[2016-10-23] MEDS: INSULIN DETEMIR 100 UNITS/ML VIAL SQ SCH ×2 (09:00→21:00)
[2016-10-23] MEDS: POTASSIUM CHLORIDE 20 MEQ CONTROLLED RELEASE TAB PO SCH (09:00)
[2016-10-23] MEDS ORDERED: 3% SALINE INJ 500 ML IV ONE (09:20)
[2016-10-23] MEDS ORDERED: LACTATED RINGER'S 1000 ML INJ 2,000 ML IV ONE (09:20)
[2016-10-23] MEDS ORDERED: SODIUM CHLORIDE 0.9% INJ 200 ML IV ONE (09:20)
[2016-10-23] MEDS ORDERED: SODIUM CHLOR 0.9% 250 ML INJ 750 ML IV ONE (09:20)
[2016-10-23] MEDS ORDERED: NORMOSOL R INJ 1,000 ML IV ONE (09:20)
[2016-10-23] MEDS: DOBUTamine PREMIX DRIP 250 ML IV SCH (10:40)
[2016-10-23] MEDS ORDERED: DOPamine INJ PREMIX 500 ML IV SCH (10:45)
[2016-10-23] MEDS ORDERED: METOPROLOL TARTRATE 5 MG/5 ML VIAL IV PUSH PRN (10:45)
[2016-10-23] MEDS ORDERED: POTASSIUM CHLORIDE 20 MEQ CONTROLLED RELEASE TAB PO PRN ×2 (10:45)
[2016-10-23] MEDS ORDERED: hydrALAZINE HCL 20 MG/ML VIAL IV PRN (10:45)
[2016-10-23] MEDS ORDERED: ACETAMINOPHEN 650 MG SUPP RECTAL PRN (10:45)
[2016-10-23] MEDS ORDERED: MEPERIDINE HCL 25 MG/ML VIAL IV PRN (10:45)
[2016-10-23] MEDS ORDERED: EPINEPHrine (1:1000) INJ 4 MG in DEXTROSE 5% IN WATER INJ 246 ML IV SCH ×2 (10:45)
[2016-10-23] MEDS ORDERED: MORPHINE SULFATE 4 MG/ML INJ IV PRN (10:45)
[2016-10-23] MEDS ORDERED: DEXMEDETOMIDINE INJ 50 ML IV SCH (10:45)
[2016-10-23] MEDS ORDERED: CLEVIDIPINE INJ 50 ML IV SCH (10:45)
[2016-10-23] MEDS ORDERED: POTASSIUM CHLOR 20 MEQ PREMIX 100 ML IV PRN ×3 (10:45)
[2016-10-23] MEDS ORDERED: DEXTROSE 50% IN WATER 50 ML VIAL(D50) IV PUSH PRN (10:45)
[2016-10-23] MEDS ORDERED: SODIUM CHLORIDE 0.9% FLUSH 5 ML FLUSH IV FLUSH PRN (10:45)
[2016-10-23] MEDS ORDERED: CALCIUM CHLORIDE INJ 1 GM in SODIUM CHLORIDE 0.9% INJ 100 ML IV PRN (10:45)
[2016-10-23] MEDS ORDERED: MAGNESIUM SULFATE INJ 2 GM in SODIUM CHLORIDE 0.9% INJ 100 ML IV PRN ×4 (10:45)
[2016-10-23] MEDS ORDERED: CALCIUM CHLORIDE 10% 1 GRAM/10 ML VIAL IV PRN (10:45)
[2016-10-23] MEDS ORDERED: NITROGLYCERIN-DEXTROSE INJ 250 ML IV SCH (10:45)
[2016-10-23] MEDS ORDERED: ONDANSETRON HCL 4 MG/2 ML VIAL IV PUSH PRN (10:45)
[2016-10-23] MEDS ORDERED: INSULIN REGULAR (IV INFUSION) 100 UNITS in SODIUM CHLORIDE 0.9% INJ 99 ML IV SCH (10:45)
[2016-10-23] MEDS ORDERED: Post-op Orders (for Pharmacy) MISC OTHER ONE (10:45)
[2016-10-23] MEDS ORDERED: ACETAMINOPHEN 325 MG TAB PO PRN (10:45)
--- NOTE | 2016-10-23 10:56 | PD.OP ---
cc: Brendan Blanton MD; Lucas Beyer MD; Refugio Joy MD Operative Report Date of Surgery: Oct 23, 2016 Preoperative Diagnosis: Postoperative Diagnosis: Procedure: 1. Urgent Salvage Off-pump Coronary Artery Bypass Grafting x 2 with left internal mammary artery (ORTIZ) to left anterior descending (LAD), reverse saphenous vein graft to Ramus Marginalis 2. Right Leg Endoscopic Vein Pedro 3. Intraoperative Vein Mapping. . Surgeon: Brendan Blanton Tool Profiling Machine Set Up Operator(s): Dalton Wild Operation and Findings: PREPROCEDURE DIAGNOSES 1. Moderate Left Main Coronary Artery Disease. 2. Severe Left Ventricular Dysfunction (EF 15% by Intraop RAFAEL) 3. Acute Myocardial Infarction 4. Pneumonia 5. COPD POSTPROCEDURE DIAGNOSES Same SURGICAL PROCEDURE 1. Urgent Salvage Off-pump Coronary Artery Bypass Grafting x 2 with left internal mammary artery (ORTIZ) to left anterior descending (LAD), reverse saphenous vein graft to Ramus Marginalis 2. Right Leg Endoscopic Vein Pedro 3. Intraoperative Vein Mapping. SURGEON Brendan Blanton MD CLIENT ADVISOR LORRAINE Holm ANESTHESIA General endotracheal . FIRE SPRINKLER FITTER KENNY Vela MD PREPARATION ChloraPrep. COUNTS Needle, sponge, and instrument counts were correct. DRAINS Two [place] mediastinal tubes. COMPLICATIONS None. INDICATIONS FOR PROCEDURE The patient is a 71-year-old presenting with AMI. Patient was noted to have moderate left main coronary artery disease with associated multi-vessel disease. The patient is being brought to the operating room for surgical revascularization therapy. PROCEDURE Patient was brought to the operating room and placed supine on the OR table. Following the induction of adequate general endotracheal anesthesia and placement of appropriate monitoring devices, intraoperative vein mapping was performed which usable-caliber conduit in the RLE. Intraoperative RAFAEL did reveal severe left ventricular dysfunction (EF 15%) with global hypokinesis and posterior wall dyskinesis. The patient was then prepped and draped in standard sterile fashion. Next, 2500 units of intravenous heparin was given. The right greater saphenous vein was harvested endoscopically. This appeared to be a useable-caliber conduit. Simultaneously, a median sternotomy was performed and the left internal mammary artery dissected free off the posterior sternal table. The patient was systemically heparinized and anticoagulation monitored by serial ACT measurements. The internal mammary artery had good pulsatile flow in it and was an good-caliber conduit. The pericardium was then divided in the midline, the cradle created and targets analyzed. At this point, all anastomoses were performed in a beating-heart fashion using the Maquet stabilizing system. The left internal mammary artery was anastomosed to the mid LAD (1.75 mm) in an end-to-side fashion using 7-0 Prolene. Segment of saphenous vein graft was then anastomosed to the ramus marginalis (1.75 mm) in an end-to- side fashion using 7-0 Prolene. The OM1 territory was explored and no viable targets were identified. Similarly, the RPDA was explored and deemed to be severely and heavily calcified and very small and non-bypassable. It was also in the area of the transmural infarction with very friable tissue around it. The proximal anastomosis was then constructed to the ascending aorta in a running manner using 6-0 Prolene. All anastomotic sites were inspected and appeared to be hemostatic and patent. Protamine solution was given. Strict hemostasis was assured. The closure was undertaken. 2 chest tubes were placed. The pericardium was reapproximated in the midline. The sternum was approximated using sternal wires. The muscular and fascial layer were then closed in 3 layers. The endoscopic vein harvest site was closed in 2 layers. The patient tolerated the procedure well and was transferred to CVICU in stable condition. Brendan Blanton MD Oct 23, 2016 10:56
--- NOTE | 2016-10-23 11:18 | PD.CAR.PN ---
CVT Progress Note Subjective/Hospital Course: sts risk calculator revised based upon updated data. Discussed with patient and . As follows: Mortality: 5.6% Mobidity or Mortality: 40% Long LOS: 18% Permanent Stroke: 3.3% Renal Failure: 8.7% Reoperation: 11% Objective: Vital Signs Date Time Temp Pulse Resp B/P Pulse Ox O2 Delivery O2 Flow Rate FiO2 10/23/16 06:05 80 10/23/16 05:00 84 10/23/16 04:26 76 10/23/16 03:31 98.0 78 16 97/68 94 10/23/16 03:31 96 10/23/16 02:00 79 10/23/16 01:23 89 10/23/16 00:00 89 10/22/16 23:11 98.0 84 16 103/66 95 10/22/16 23:11 96 10/22/16 22:15 97 10/22/16 21:00 93 10/22/16 20:00 94 10/22/16 19:14 97.9 89 18 99/72 95 10/22/16 19:00 89 10/22/16 18:01 99 10/22/16 17:39 97 10/22/16 16:51 97 10/22/16 15:20 95 10/22/16 15:15 97.2 94 18 99/69 96 10/22/16 14:37 96 10/22/16 13:27 97 10/22/16 12:38 97.8 97 17 91/66 97 10/22/16 12:20 97 Result Diagram: 10/21/16 0111 10/22/16 1441 Jessica Vargas Oct 23, 2016 11:18
[2016-10-23] MEDS ORDERED: MIDAZOLAM HCL 5 MG/5 ML VIAL ONE (11:24)
[2016-10-23] MEDS ORDERED: fentaNYL CITRATE 1000 MCG/20 ML VIAL ONE (11:24)
[2016-10-23] MEDS: ACETAMINOPHEN 1000 MG/100 ML VIAL IV SCH ×3 (11:42→22:45)
[2016-10-23] MEDS ORDERED: RESP: ALBUTEROL 2.5 MG/IPRATROPIUM 0.5 MG NEB (PRN) NEB (12:00)
[2016-10-23] MEDS ORDERED: RESP: RACEPINEPHRINE 2.25% 0.5 ML NEB NEB PRN (12:00)
[2016-10-23] MEDS: ALBUMIN HUMAN 5% 12.5 GM/250 ML BOTTLE IV PRN ×2 (12:15→12:39)
--- NOTE | 2016-10-23 12:35 | RADRPT ---
EXAM DATE/TIME: 10/23/2016 11:44 [facility] COMPARISON: CHEST SINGLE AP, October 22, 2016, 12:39. INDICATIONS: S/p CABG. MEDICAL HISTORY: Cardiovascular disease. SURGICAL HISTORY: Coronary artery stent. ENCOUNTER: Initial ACUITY: 1 day PAIN SCORE: Non-responsive. LOCATION: Bilateral chest FINDINGS: ET tube, nasogastric tube, central venous catheter and left chest tube are in good position. Mild interstitial alveolar opacity remain in perihilar distribution. There is no pneumothorax. CONCLUSION: 1. Stable chest following bypass. There is no pneumothorax. 2. Perihilar interstitial edema persist. Sloan Siegel MD FACR on October 23, 2016 at 12:27 Board Certified Radiologist. This report was verified electronically.
[2016-10-23] MEDS: PHENYLEPHRINE INJ 40 MG in DEXTROSE 5% IN WATE 500 ML INJ 496 ML IV SCH ×2 (13:02)
[2016-10-23] MEDS ORDERED: RESP: ALBUTEROL 2.5 MG/IPRATROPIUM 0.5 MG NEB (SCH) NEB (16:00)
[2016-10-23] MEDS: AZITHROMYCIN INJ 500 MG in SODIUM CHLOR 0.9% 250 ML INJ 250 ML IV SCH (17:56)
--- NOTE | 2016-10-23 17:56 | HHI.PR ---
Subjective Remarks Patient seen and examined post CABG He was sitting on the chair awake alert reported feeling okay except pain in his sternum by the side of the surgery at the bedside, Objective Vitals Vital Signs Date Time Temp Pulse Resp B/P Pulse Ox O2 Delivery O2 Flow Rate FiO2 10/23/16 17:03 89 10/23/16 16:11 81 10/23/16 16:11 97 Nasal Cannula 4.00 10/23/16 15:07 82 10/23/16 15:06 98.9 92 22 98/63 97 10/23/16 14:03 98.4 10/23/16 14:03 82 10/23/16 13:06 85 10/23/16 12:41 97 Simple Mask 6.00 10/23/16 12:41 89 Nasal Cannula 6 10/23/16 12:40 98 Simple Mask 6.00 10/23/16 12:20 98 Mechanical Ventilator 50 10/23/16 12:20 98.9 10/23/16 12:19 50 10/23/16 12:18 89 10/23/16 12:16 22 10/23/16 11:44 60 10/23/16 11:28 98.9 86 20 91/58 99 10/23/16 11:26 86 10/23/16 11:15 94 50 10/23/16 06:05 80 10/23/16 05:00 84 10/23/16 04:26 76 10/23/16 03:31 98.0 78 16 97/68 94 10/23/16 03:31 96 10/23/16 02:00 79 10/23/16 01:23 89 10/23/16 00:00 89 10/22/16 23:11 98.0 84 16 103/66 95 10/22/16 23:11 96 10/22/16 22:15 97 10/22/16 21:00 93 10/22/16 20:00 94 10/22/16 19:14 97.9 89 18 99/72 95 10/22/16 19:00 89 10/22/16 18:01 99 I/O 10/22/16 10/22/16 10/22/16 10/23/16 10/23/16 10/23/16 07:00 15:00 23:00 07:00 15:00 23:00 Intake Total 480 ml 100 ml 1075 ml 2650 ml Output Total 350 ml 850 ml 300 ml 450 ml Balance 130 ml -750 ml 775 ml 2200 ml Intake Oral 480 ml 240 ml 100 ml IV Total 100 ml 835 ml 2050 ml Albumin 500 ml Output Urine Total 350 ml 850 ml 300 ml 200 ml Chest Tube Drainage Total 250 ml # Voids 1 # Bowel Movements 0 0 Result Diagram: 10/21/16 0111 10/22/16 1441 Objective Remarks GENERAL: This is a well-nourished, well-developed patient, in no apparent distress. SKIN: No rashes, warm and dry HEAD: Atraumatic. Normocephalic. EYES: Pupils equal round and reactive. Extraocular motions intact. No scleral icterus. ENT: Nose without bleeding, or drainage, Airway patent. NECK: Trachea midline. Supple CARDIOVASCULAR: Regular rate and rhythm without murmurs, gallops, or rubs. RESPIRATORY: Fair air entry bilaterally. No wheezes, rales, or rhonchi. Sternal incision looks clean, vacuum in place GASTROINTESTINAL: Abdomen soft, non-tender, nondistended. Positive bowel sounds MUSCULOSKELETAL: Extremities without clubbing, cyanosis, or edema. Pedal pulses appreciated NEUROLOGICAL: Awake and alert. Moves all extremity. Normal speech.no focal neurological deficit A/P Problem List: (1) NSTEMI (non-ST elevated myocardial infarction) ICD Code: I21.4 Status: Acute (2) Dehydration ICD Code: E86.0 Status: Acute (3) HTN (hypertension) ICD Code: I10 Status: Acute (4) DM (diabetes mellitus) ICD Code: E11.9 Status: Acute (5) HCAP (healthcare-associated pneumonia) ICD Code: J18.9 Status: Acute Assessment and Plan 71-year-old male with - Moderate left main and severe three-vessel coronary artery disease: Appreciate input from CTS, status post CABG on 10/23/16. Continue postop protocol per [facility] - NSTEMI: Patient with previous stents placement, patient is status post left heart catheterization with finding of Moderate left main and severe three- vessel coronary artery disease. Heparin drip/Vasotec/Statin/BB/NTG/Morphine has needed. - Acute systolic CHF: EF 35%, currently on Lasix. EARL inhibitor contraindicated secondary to low BP. Continue beta oj. - HCAP: Currently on IV Rocephin and azithromycin . Appreciate input from pulmonary medicine - HTN: continue low-dose Metoprolol. Monitor BP. - DM: Continue Levemir 5 units every 12 , Sliding scale w/ Accu-Cheks + Medium ISS - DVT Prophylaxis: On Heparin gtt Millie Sutherland MD Oct 23, 2016 17:55
[2016-10-23] MEDS: ACETAMINOPHEN/HYDROcodone 325 MG/5 MG TAB PO PRN ×2 (19:19→23:30)
[2016-10-23] MEDS: AMIODARONE 200 MG TAB PO SCH (19:19)
[2016-10-23] MEDS: cefTRIAXone INJ 1,000 MG in SODIUM CHLORIDE 0.9% INJ 100 ML IV SCH (19:20)
[2016-10-23] MEDS: LACTATED RINGER'S 1000 ML INJ 500 ML IV PRN (22:30)
[2016-10-24] VITALS (10 sets, daily range): BP systolic 78–113; BP diastolic 50–76; PULSE 77–95; RESP 16–18; TEMP 97.8–99.1; O2SAT 94–98
[2016-10-24] MEDS: LACTATED RINGER'S 1000 ML INJ 500 ML IV PRN
[2016-10-24] MEDS: PHENYLEPHRINE INJ 40 MG in DEXTROSE 5% IN WATE 500 ML INJ 496 ML IV SCH ×4 (02:35→12:57)
[2016-10-24] MEDS: RESP: IPRATROPIUM 0.5 MG/2.5 ML NEB NEB SCH ×4 (04:04→21:06)
[2016-10-24] MEDS: ACETAMINOPHEN 1000 MG/100 ML VIAL IV SCH (04:11)
[2016-10-24] MEDS: ACETAMINOPHEN/HYDROcodone 325 MG/5 MG TAB PO PRN ×3 (04:12→20:23)
[2016-10-24 05:04] LABS: AUTOMATED NEUTROPHIL # 10.1 TH/MM3 (1.8-7.7); BASOPHIL % 0.1 % (0.0-2.0); EOSINOPHIL # 0.1 TH/MM3 (0-0.4); EOSINOPHIL % 0.9 % (0.0-4.0); HEMATOCRIT 29.6 % (39.0-51.0); HEMO FLAGS DIFF FINAL; LYMPH % 17.7 % (9.0-44.0); LYMPHOCYTE # 2.3 TH/MM3 (1.0-4.8); MEAN CELL VOLUME 90.2 FL (80.0-100.0); MEAN CORPUSCULAR HEMOGLOBIN 29.8 PG (27.0-34.0); MONO % 4.2 % (0.0-8.0); NEUT % 77.1 % (16.0-70.0); PLATELET COUNT 449 TH/MM3 (150-450); RED BLOOD COUNT 3.28 MIL/MM3 (4.50-5.90); RED CELL DISTRIBUTION WIDTH 14.3 % (11.6-17.2); WHITE BLOOD COUNT 13.1 TH/MM3 (4.0-11.0)
[2016-10-24 05:28] LABS: BICARBONATE 22.9 MEQ/L (21.0-32.0); MAGNESIUM 2.4 MG/DL (1.5-2.5); POTASSIUM 4.1 MEQ/L (3.5-5.1)
[2016-10-24] MEDS: PANTOPRAZOLE SOD 40 MG DELAYED RELEASE TAB PO SCH (05:56)
[2016-10-24] MEDS: INSULIN ASPART SUPPLEMENTAL SCALE SQ SCH ×5 (05:57→21:51)
[2016-10-24] MEDS: NITROGLYCERIN 2% OINT 1 GM PACKET TOPICAL SCH (05:57)
--- NOTE | 2016-10-24 06:15 | RADRPT ---
EXAM DATE/TIME: 10/24/2016 05:07 [facility] COMPARISON: CHEST SINGLE AP, October 23, 2016, 11:44. INDICATIONS : Post CABG. MEDICAL HISTORY : Cardiovascular disease. SURGICAL HISTORY : Coronary artery stent. ENCOUNTER: Subsequent ACUITY: 1 week PAIN SCORE: Non-responsive. LOCATION: Bilateral chest FINDINGS: A single view of the chest demonstrates persistent bilateral airspace disease, predominantly right up per lobe and left perihilar distribution. His are stable. Heart size is upper limits of normal. Endot donita tube is been removed. Left-sided thoracostomy tube is stable in position without pneumothorax . Right IJ central venous catheter and mediastinal drain are unchanged in position. CONCLUSION: 1. Interval removal of the endotracheal tube. Remaining life support tubes are stable. 2. Persistent bilateral airspace disease predominantly right upper lobe and left perihilar distributi on are stable. Minimal developing atelectasis in left base. Pablo Watts MD on October 24, 2016 at 6:12 Board Certified Radiologist. This report was verified electronically.
[2016-10-24] MEDS: DOBUTamine PREMIX DRIP 250 ML IV SCH (07:04)
[2016-10-24] MEDS ORDERED: SOD PHOSPHATE/SOD BIPHOSPHATE (ADULT) ENEMA 133ML RECTAL PRN (08:30)
[2016-10-24] MEDS ORDERED: GLUCAGON 1 MG/ML VIAL OTHER PRN (08:30)
[2016-10-24] MEDS ORDERED: BISACODYL 10 MG SUPP RECTAL PRN (08:30)
[2016-10-24] MEDS ORDERED: DEXTROSE 50% IN WATER 50 ML VIAL(D50) IV PRN (08:30)
[2016-10-24] MEDS ORDERED: FUROSEMIDE 20 MG/2 ML VIAL IV PUSH ONE (08:45)
[2016-10-24] MEDS ORDERED: POTASSIUM CHLORIDE 10 MEQ CONTROLLED RELEASE TAB PO ONE (08:45)
[2016-10-24] MEDS: ASPIRIN 81 MG CHEW TAB PO SCH (09:24)
[2016-10-24] MEDS: INSULIN DETEMIR 100 UNITS/ML VIAL SQ SCH ×3 (09:24→20:18)
[2016-10-24] MEDS: DOCUSATE SODIUM 100 MG CAP PO SCH ×3 (09:25→20:17)
[2016-10-24] MEDS: MAGNESIUM HYDROXIDE SUSP 30 ML CUP PO SCH (09:25)
[2016-10-24] MEDS: CLOPIDOGREL 75 MG TAB PO SCH (09:25)
[2016-10-24] MEDS: AMIODARONE 200 MG TAB PO SCH ×2 (09:25→20:17)
[2016-10-24] MEDS: ATORVASTATIN 80 MG TAB PO SCH (09:25)
[2016-10-24] MEDS: guaiFENesin E.R. 600 MG TAB PO SCH ×2 (09:25→20:17)
[2016-10-24] MEDS: MULTIVITAMINS/MINERALS THERAPEUTIC TAB PO SCH (09:25)
[2016-10-24] MEDS: methylPREDNISolone SOD SUCC 40 MG/1 ML VIAL IV PUSH SCH (09:26)
[2016-10-24] MEDS: METOCLOPRAMIDE HCL 10 MG/2 ML VIAL IV SCH ×3 (09:29→16:18)
[2016-10-24] MEDS: SODIUM CHLORIDE 0.9% FLUSH 5 ML FLUSH IV FLUSH SCH ×2 (09:29→20:17)
--- NOTE | 2016-10-24 10:01 | EKG ---
Date Performed: 10/24/2016 Time Performed: 04:58:56 PTAGE: 71 years EKG: Sinus rhythm Inferior ST elevation, consider acute infarct Lateral ST/T changes consider ischemia Abnormal ECG PREVIOUS TRACING : 10/15/2016 10.15 Compared to previous tracing, inferior ST elevation possibl y slightly more pronounced, T wave inversion in V4-V6 has resolved. DOCTOR: Lucas Beyer Interpretating Date/Time 10/24/2016 10:00:31
--- NOTE | 2016-10-24 10:53 | PD.CAR.PN ---
CVT Progress Note Subjective/Hospital Course: 71/ male visiting from [place] for the races, was out for a walk and developed chest pain , has admitted to chest pain off and on x 2 months , found to have NSTEMI Trop peaked at 21, has prior hx of CAD, [place] stent in [place], underwent cardiac cath by Dr Lucas Beyer 10/15/16 found to have multivessel disease EF 50 % PMH: CAD/ [place], stent DM, HLP. peripheral neuropathy/ prior tobacco abuse 10/17 CXR noted yesterday, multilobar PNA, + fever, leukocytosis, started on CPAP coverage strep pneum neg, neg legionella, flu neg, blood cultures neg surgery rescheduled for Monday 10/23 appreciate Pulm input will continue nebs, pulm toileting 10/18 leukocytosis improving fevers improved, not sleeping well at night still has some congested cough continue nebs, pulm toileting consult pt 10/19 remains on , still has cough CXR noted, may need ABX changed, will need to discuss with Genny Joy (pulm) continue nebs / ezpap 10/20 no fevers last night, feels fair notices HR increases with albuterol nebs/ changed to atrovent on IV diuresis , BNP 1100 scheduled for surgery on Sunday sts risk calculator revised based upon updated data. Discussed with patient and . As follows: Mortality: 5.6% Mobidity or Mortality: 40% Long LOS: 18% Permanent Stroke: 3.3% Renal Failure: 8.7% Reoperation: 11% 10/23 off pump CABG x 2 , right EVH extubated after surgery , crystalloid +2000cc/ EBL<500 urine 150cc. 10/24 up in chair remains on low dose Alonzo BP labile, hold on starting BB gentle diuresis / CVP 20 / CXR with increased interstitial markings discussed with Dr Joy, continue ABX/ change to po levaquin, pulm toileting OOB , ambulate will need to discuss EF with Dr Beyer RE: Life vest placement and may need repeat limited echo in a couple days Objective: Vital Signs Date Time Temp Pulse Resp B/P Pulse Ox O2 Delivery O2 Flow Rate FiO2 10/24/16 07:51 98 Nasal Cannula 3.00 10/24/16 07:21 98 Nasal Cannula 4.00 10/24/16 07:20 83 10/24/16 07:19 98.0 83 18 88/58 98 Arterial Line 10/24/16 03:25 97.9 80 18 94/66 97 78/71 10/24/16 03:25 97 Nasal Cannula 4.00 10/24/16 03:25 79 10/23/16 23:34 97 Nasal Cannula 4.00 10/23/16 23:34 97.9 75 18 98/64 97 96/69 10/23/16 23:34 83 10/23/16 20:55 98 Nasal Cannula 4.00 10/23/16 19:20 99 Nasal Cannula 4.00 10/23/16 19:20 98.6 91 16 91/54 99 93/55 10/23/16 19:00 91 10/23/16 18:03 79 10/23/16 17:56 19 10/23/16 17:03 89 10/23/16 16:11 81 10/23/16 16:11 97 Nasal Cannula 4.00 10/23/16 15:07 82 10/23/16 15:06 98.9 92 22 98/63 97 10/23/16 14:03 98.4 10/23/16 14:03 82 10/23/16 13:06 85 10/23/16 12:41 97 Simple Mask 6.00 10/23/16 12:41 89 Nasal Cannula 6 10/23/16 12:40 98 Simple Mask 6.00 10/23/16 12:20 98 Mechanical Ventilator 50 10/23/16 12:20 98.9 10/23/16 12:19 50 10/23/16 12:18 89 10/23/16 11:44 60 10/23/16 11:28 98.9 86 20 91/58 99 10/23/16 11:26 86 10/23/16 11:15 94 50 Labs: Laboratory Tests Test 10/24/16 04:41 White Blood Count 13.1 TH/MM3 (4.0-11.0) Red Blood Count 3.28 MIL/MM3 (4.50-5.90) Hemoglobin 9.8 GM/DL (13.0-17.0) Hematocrit 29.6 % (39.0-51.0) Mean Corpuscular Volume 90.2 FL (80.0-100.0) Mean Corpuscular Hemoglobin 29.8 PG (27.0-34.0) Mean Corpuscular Hemoglobin 33.0 % Concent (32.0-36.0) Red Cell Distribution Width 14.3 % (11.6-17.2) Platelet Count 449 TH/MM3 (150-450) Mean Platelet Volume 7.2 FL (7.0-11.0) Neutrophils (%) (Auto) 77.1 % (16.0-70.0) Lymphocytes (%) (Auto) 17.7 % (9.0-44.0) Monocytes (%) (Auto) 4.2 % (0.0-8.0) Eosinophils (%) (Auto) 0.9 % (0.0-4.0) Basophils (%) (Auto) 0.1 % (0.0-2.0) Neutrophils # (Auto) 10.1 TH/MM3 (1.8-7.7) Lymphocytes # (Auto) 2.3 TH/MM3 (1.0-4.8) Monocytes # (Auto) 0.5 TH/MM3 (0-0.9) Eosinophils # (Auto) 0.1 TH/MM3 (0-0.4) Basophils # (Auto) 0.0 TH/MM3 (0-0.2) CBC Comment DIFF FINAL Differential Comment Sodium Level 138 MEQ/L (136-145) Potassium Level 4.1 MEQ/L (3.5-5.1) Chloride Level 105 MEQ/L (98-107) Carbon Dioxide Level 22.9 MEQ/L (21.0-32.0) Anion Gap 10 MEQ/L (5-15) Blood Urea Nitrogen 26 MG/DL (7-18) Creatinine 1.19 MG/DL (0.60-1.30) Estimat Glomerular Filtration 60 ML/MIN (>89) Rate Random Glucose 127 MG/DL (74-106) Calcium Level 8.3 MG/DL (8.5-10.1) Magnesium Level 2.4 MG/DL (1.5-2.5) Result Diagram: 10/24/1644010/24/16440 (1) NSTEMI (non-ST elevated myocardial infarction) Plan: . Cath shows severe multivessel CAD, EF ~50%. continue beta oj, aspirin, heparin. BP's too low for EARL-I. (2) S/P CABG x 2 Plan: recheck LFT in am , to eval for starting statin on ASA, plavix amiodarone wean Alonzo gtt off OOB, ambulate gentle diuresis / CVP 20 (3) Hyperlipidemia Plan: Suboptimal lipid profile. Ideally needs statin though AST elevated. close monitoring of LFTs if he is to remain on statin therapy. recheck lft in am (4) Ischemic cardiomyopathy Plan: EF does appear closer to 35-40% by echo. Rec continue beta oj. BP's too low for EARL-I. continue diuresis (5) DM (diabetes mellitus) Plan: on insulin sliding scale, diabetic diet add levemir (6) HTN (hypertension) Plan: BP on lower side (7) Community acquired pneumonia Plan: post op ancef, add po levaquin Problem Qualifiers (1) Hyperlipidemia: Qualified Code: E78.2 - Mixed hyperlipidemia Jessica Vargas Oct 24, 2016 10:53
--- NOTE | 2016-10-24 16:09 | HHI.PR ---
Subjective Remarks Patient still on Alonzo-Synephrine He reported he feels a little worse than yesterday He is afebrile, I discussed with the nurse and with his Objective Vitals Vital Signs Date Time Temp Pulse Resp B/P Pulse Ox O2 Delivery O2 Flow Rate FiO2 10/24/16 15:13 77 10/24/16 15:13 99.1 82 18 113/65 98 10/24/16 15:12 98 Nasal Cannula 3.00 10/24/16 11:03 87 10/24/16 11:03 95 Nasal Cannula 2.00 10/24/16 11:02 98.8 87 18 80/50 95 10/24/16 11:01 18 10/24/16 07:51 98 Nasal Cannula 3.00 10/24/16 07:21 98 Nasal Cannula 4.00 10/24/16 07:20 83 10/24/16 07:19 98.0 83 18 88/58 98 Arterial Line 10/24/16 03:25 97.9 80 18 94/66 97 78/71 10/24/16 03:25 97 Nasal Cannula 4.00 10/24/16 03:25 79 10/23/16 23:34 97 Nasal Cannula 4.00 10/23/16 23:34 97.9 75 18 98/64 97 96/69 10/23/16 23:34 83 10/23/16 20:55 98 Nasal Cannula 4.00 10/23/16 19:20 99 Nasal Cannula 4.00 10/23/16 19:20 98.6 91 16 91/54 99 93/55 10/23/16 19:00 91 10/23/16 18:03 79 10/23/16 17:56 19 10/23/16 17:03 89 10/23/16 16:11 81 10/23/16 16:11 97 Nasal Cannula 4.00 I/O 10/23/16 10/23/16 10/23/16 10/24/16 10/24/16 10/24/16 07:00 15:00 23:00 07:00 15:00 23:00 Intake Total 1075 ml 2900 ml 2530 ml Output Total 300 ml 450 ml 550 ml Balance 775 ml 2450 ml 1980 ml Intake Oral 240 ml 100 ml 480 ml IV Total 835 ml 2300 ml 2050 ml Albumin 500 ml Output Urine Total 300 ml 200 ml 400 ml Chest Tube Drainage Total 250 ml 150 ml # Voids 1 # Bowel Movements 0 0 0 Result Diagram: 10/24/1644010/24/16440 Objective Remarks GENERAL: This is a well-nourished, well-developed patient, in no apparent distress. SKIN: No rashes, warm and dry HEAD: Atraumatic. Normocephalic. EYES: Pupils equal round and reactive. Extraocular motions intact. No scleral icterus. ENT: Nose without bleeding, or drainage, Airway patent. NECK: Trachea midline. Supple CARDIOVASCULAR: Regular rate and rhythm without murmurs, gallops, or rubs. RESPIRATORY: Fair air entry bilaterally. No wheezes, rales, or rhonchi. Sternal incision looks clean, vacuum in place GASTROINTESTINAL: Abdomen soft, non-tender, nondistended. Positive bowel sounds MUSCULOSKELETAL: Extremities without clubbing, cyanosis, or edema. Pedal pulses appreciated NEUROLOGICAL: Awake and alert. Moves all extremity. Normal speech.no focal neurological deficit A/P Problem List: (1) NSTEMI (non-ST elevated myocardial infarction) ICD Code: I21.4 Status: Acute (2) Dehydration ICD Code: E86.0 Status: Acute (3) HTN (hypertension) ICD Code: I10 Status: Acute (4) DM (diabetes mellitus) ICD Code: E11.9 Status: Acute (5) HCAP (healthcare-associated pneumonia) ICD Code: J18.9 Status: Acute Assessment and Plan 71-year-old male with - Moderate left main and severe three-vessel coronary artery disease: Appreciate input from CTS, status post CABG on 10/23/16. Continue postop protocol per CV[facility], patient still on the Alonzo-Synephrine drip, still with hypotension, will consider transfer to wood pole treater if needed or requested by the surgeon - NSTEMI: Patient with previous stents placement, patient is status post left heart catheterization with finding of Moderate left main and severe three- vessel coronary artery disease. Heparin drip/Vasotec/Statin/BB/NTG/Morphine has needed. Monitor LFT while on statin, we will keep on statin despite elevated LFT because of medical necessity per cardiology - Acute systolic CHF: EF 35%, currently on Lasix. EARL inhibitor contraindicated secondary to low BP. Continue beta oj. - HCAP: Currently on IV Rocephin and azithromycin . Appreciate input from pulmonary medicine - HTN: continue low-dose Metoprolol. Monitor BP. - DM: Continue Levemir 5 units every 12 , Sliding scale w/ Accu-Cheks + Medium ISS - DVT Prophylaxis: On Heparin gtt Millie Sutherland MD Oct 24, 2016 16:09
[2016-10-24] MEDS: SENNOSIDES 8.6 MG TAB PO SCH (20:17)
[2016-10-24] MEDS: LORazepam 1 MG TAB PO PRN (20:23)
[2016-10-25] VITALS (20 sets, daily range): BP systolic 88–130; BP diastolic 59–71; PULSE 84–101; RESP 15–29; TEMP 97–99.4; O2SAT 92–97
[2016-10-25] MEDS: LORazepam 1 MG TAB PO PRN ×2 (00:48→07:36)
[2016-10-25] MEDS: METOCLOPRAMIDE HCL 10 MG/2 ML VIAL IV SCH ×5 (00:48→23:33)
[2016-10-25] MEDS: INSULIN ASPART SUPPLEMENTAL SCALE SQ SCH ×7 (02:00→21:43)
[2016-10-25] MEDS: PHENYLEPHRINE INJ 40 MG in DEXTROSE 5% IN WATE 500 ML INJ 496 ML IV SCH ×2 (02:31)
[2016-10-25] MEDS: RESP: IPRATROPIUM 0.5 MG/2.5 ML NEB NEB SCH ×4 (03:32→20:32)
[2016-10-25] MEDS: PANTOPRAZOLE SOD 40 MG DELAYED RELEASE TAB PO SCH (05:08)
[2016-10-25 05:28] LABS: AUTOMATED NEUTROPHIL # 19.4 TH/MM3 (1.8-7.7); BASOPHIL # 0.1 TH/MM3 (0-0.2); BASOPHIL % 0.3 % (0.0-2.0); EOSINOPHIL % 0.1 % (0.0-4.0); HEMATOCRIT 30.9 % (39.0-51.0); HEMO FLAGS DIFF FINAL; LYMPH % 6.5 % (9.0-44.0); LYMPHOCYTE # 1.4 TH/MM3 (1.0-4.8); MEAN CELL VOLUME 88.6 FL (80.0-100.0); MEAN CORPUSCULAR HEMOGLOBIN 30.3 PG (27.0-34.0); MEAN CORPUSCULAR HGB CONC 34.2 % (32.0-36.0); MONO % 5.3 % (0.0-8.0); NEUT % 87.8 % (16.0-70.0); PLATELET COUNT 496 TH/MM3 (150-450); RED BLOOD COUNT 3.48 MIL/MM3 (4.50-5.90); RED CELL DISTRIBUTION WIDTH 14.2 % (11.6-17.2); WHITE BLOOD COUNT 22.1 TH/MM3 (4.0-11.0)
[2016-10-25 06:01] LABS: BICARBONATE 24.6 MEQ/L (21.0-32.0); MAGNESIUM 2.6 MG/DL (1.5-2.5); POTASSIUM 4.3 MEQ/L (3.5-5.1)
[2016-10-25 06:03] LABS: INDIRECT BILIRUBIN 0.4 MG/DL (0.0-0.8); TOTAL BILIRUBIN ADULT 0.6 MG/DL (0.2-1.0)
--- NOTE | 2016-10-25 07:45 | PD.CARD.PN ---
Subjective Subjective Remarks Denies dyspnea except when anxious. No angina, dizziness, palpitations, PND. Objective Medications Item Value Date Time Aspirin 81 mg 10/24/16 09 (Aspirin Chew) DAILY/PO 10/24/16923 Clopidogrel 75 mg 10/24/16 0900 Bisulfate DAILY/PO 10/24/16924 (Plavix) Amiodarone HCl 400 mg 10/23/162099 (Cordarone) Q12HR/PO 10/24/162016 Atorvastatin 80 mg 10/16/16 1200 Calcium DAILY/PO 10/24/16924 (Lipitor) Vital Signs / I&O Vital Signs Date Time Temp Pulse Resp B/P Pulse Ox O2 Delivery O2 Flow Rate FiO2 10/25/16 03:36 97.9 87 15 101/64 94 10/25/16 03:36 94 Nasal Cannula 3.00 10/25/16 03:36 87 10/24/16 23:00 94 Nasal Cannula 3.00 10/24/16 23:00 98.0 90 18 94/70 94 10/24/16 23:00 95 10/24/16 21:31 Nasal Cannula 3.00 10/24/16 19:11 95 Nasal Cannula 3.00 10/24/16 19:11 97.8 94 16 97/76 95 10/24/16 19:00 94 10/24/16 15:13 77 10/24/16 15:13 99.1 82 18 113/65 98 10/24/16 15:12 98 Nasal Cannula 3.00 10/24/16 11:03 87 10/24/16 11:03 95 Nasal Cannula 2.00 10/24/16 11:02 98.8 87 18 80/50 95 10/24/16 11:01 18 10/24/16 07:51 98 Nasal Cannula 3.00 I/O 10/24/16 10/24/16 10/24/16 10/25/16 10/25/16 10/25/16 07:00 15:00 23:00 07:00 15:00 23:00 Intake Total 2530 ml 1088 ml 980 ml Output Total 550 ml 580 ml 480 ml Balance 1980 ml 508 ml 500 ml Intake Oral 480 ml 500 ml 480 ml IV Total 2050 ml 588 ml 500 ml Output Urine Total 400 ml 550 ml 450 ml Chest Tube Drainage Total 150 ml 30 ml 30 ml # Bowel Movements 0 0 0 Physical Exam GENERAL: Well developed, well nourished. No acute distress. HEENT: Jugular venous pressure is normal. CHEST: Lungs clear to auscultation anteriorly. CARDIAC: Regular rate and rhythm without S3, S4, or murmur. ABDOMEN: Soft, nontender, no hepatosplenomegaly. Bowel sounds present. EXTREMITIES: No clubbing, cyanosis, or edema. Laboratory Laboratory Tests Test 10/25/16 05:13 White Blood Count 22.1 TH/MM3 Red Blood Count 3.48 MIL/MM3 Hemoglobin 10.5 GM/DL Hematocrit 30.9 % Mean Corpuscular Volume 88.6 FL Mean Corpuscular Hemoglobin 30.3 PG Mean Corpuscular Hemoglobin 34.2 % Concent Red Cell Distribution Width 14.2 % Platelet Count 496 TH/MM3 Mean Platelet Volume 7.1 FL Neutrophils (%) (Auto) 87.8 % Lymphocytes (%) (Auto) 6.5 % Monocytes (%) (Auto) 5.3 % Eosinophils (%) (Auto) 0.1 % Basophils (%) (Auto) 0.3 % Neutrophils # (Auto) 19.4 TH/MM3 Lymphocytes # (Auto) 1.4 TH/MM3 Monocytes # (Auto) 1.2 TH/MM3 Eosinophils # (Auto) 0.0 TH/MM3 Basophils # (Auto) 0.1 TH/MM3 CBC Comment DIFF FINAL Differential Comment Sodium Level 137 MEQ/L Potassium Level 4.3 MEQ/L Chloride Level 103 MEQ/L Carbon Dioxide Level 24.6 MEQ/L Anion Gap 9 MEQ/L Blood Urea Nitrogen 24 MG/DL Creatinine 0.96 MG/DL Estimat Glomerular Filtration 77 ML/MIN Rate Random Glucose 88 MG/DL Calcium Level 8.2 MG/DL Magnesium Level 2.6 MG/DL Total Bilirubin 0.6 MG/DL Direct Bilirubin 0.2 MG/DL Indirect Bilirubin 0.4 MG/DL Aspartate Amino Transf 143 U/L (AST/SGOT) Alanine Aminotransferase 166 U/L (ALT/SGPT) Alkaline Phosphatase 86 U/L Total Protein 5.9 GM/DL Albumin 2.3 GM/DL Assessment and Plan Problem List: (1) NSTEMI (non-ST elevated myocardial infarction) Assessment and Plan: Stable s/p NSTEMI and CABG. BP's better, now off phenylephrine. Cont post op care. Will f/u PRN. 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 (2) Ischemic cardiomyopathy Assessment and Plan: EF apparently close to 15% by intraoperative RAFAEL. Agree patient needs Life Vest external defibrillator for 3 months. BP's still probably too low to reinitiate beta oj, EARL-I. (3) Hyperlipidemia Assessment and Plan: Suboptimal lipid profile. On statin with LFT's. Overall would rec holding statin and evaluating etiology of increased LFTs. (4) HTN (hypertension) Assessment and Plan: Hypertension not active issue. Code Status full code Discussed Condition With patient Problem Qualifiers (1) Hyperlipidemia: Qualified Code: E78.2 - Mixed hyperlipidemia Lucas Beyer MD Oct 25, 2016 07:45
[2016-10-25] MEDS: ATORVASTATIN 80 MG TAB PO SCH (08:13)
[2016-10-25] MEDS: MAGNESIUM HYDROXIDE SUSP 30 ML CUP PO SCH (08:13)
[2016-10-25] MEDS: AMIODARONE 200 MG TAB PO SCH ×2 (08:13→21:42)
[2016-10-25] MEDS: SODIUM CHLORIDE 0.9% FLUSH 5 ML FLUSH IV FLUSH SCH ×2 (08:13→21:42)
[2016-10-25] MEDS: POLYETHYLENE GLYCOL 17 GM PKG PO SCH (08:13)
[2016-10-25] MEDS: DOCUSATE SODIUM 100 MG CAP PO SCH ×2 (08:14→21:42)
[2016-10-25] MEDS: MULTIVITAMINS/MINERALS THERAPEUTIC TAB PO SCH (08:14)
[2016-10-25] MEDS: guaiFENesin E.R. 600 MG TAB PO SCH ×2 (08:14→21:42)
[2016-10-25] MEDS: ASPIRIN 81 MG CHEW TAB PO SCH (08:14)
[2016-10-25] MEDS: methylPREDNISolone SOD SUCC 40 MG/1 ML VIAL IV PUSH SCH (08:14)
[2016-10-25] MEDS: CLOPIDOGREL 75 MG TAB PO SCH (08:14)
[2016-10-25] MEDS: INSULIN DETEMIR 100 UNITS/ML VIAL SQ SCH ×3 (08:14→21:43)
--- NOTE | 2016-10-25 09:50 | PD.CAR.PN ---
CVT Progress Note CVT: POD #: 2 Subjective/Hospital Course: 71/ male visiting from [place] for the races, was out for a walk and developed chest pain , has admitted to chest pain off and on x 2 months , found to have NSTEMI Trop peaked at 21, has prior hx of CAD, [place] stent in 2005, underwent cardiac cath by Dr Lucas Beyer 10/15/16 found to have multivessel disease EF 50 % PMH: CAD/ [place], stent DM, HLP. peripheral neuropathy/ prior tobacco abuse 10/17 CXR noted yesterday, multilobar PNA, + fever, leukocytosis, started on CPAP coverage strep pneum neg, neg legionella, flu neg, blood cultures neg surgery rescheduled for Monday 10/23 appreciate Pulm input will continue nebs, pulm toileting 10/18 leukocytosis improving fevers improved, not sleeping well at night still has some congested cough continue nebs, pulm toileting consult pt 10/19 remains on , still has cough CXR noted, may need ABX changed, will need to discuss with Genny Joy (pulm) continue nebs / ezpap 10/20 no fevers last night, feels fair notices HR increases with albuterol nebs/ changed to atrovent on IV diuresis , BNP 1100 scheduled for surgery on Sunday sts risk calculator revised based upon updated data. Discussed with patient and . As follows: Mortality: 5.6% Mobidity or Mortality: 40% Long LOS: 18% Permanent Stroke: 3.3% Renal Failure: 8.7% Reoperation: 11% 10/23 off pump CABG x 2 , right EVH extubated after surgery , crystalloid +2000cc/ EBL<500 urine 150cc. 10/24 up in chair remains on low dose Alonzo BP labile, hold on starting BB gentle diuresis / CVP 20 / CXR with increased interstitial markings discussed with Dr Joy, continue ABX/ change to po levaquin, pulm toileting OOB , ambulate will need to discuss EF with Dr Beyer RE: Life vest placement and may need repeat limited echo in a couple days 10/[address] Beyer , pt will need Life Vest for EF 15% add diuretics, off Alonzo add low dose BB chest tube removed OOB, Objective: GENERAL: SKIN: Warm and dry./ prevena to chest , incisin intact to leg HEAD: Normocephalic. EYES: No scleral icterus. No injection or drainage. NECK: Supple, trachea midline. No JVD or lymphadenopathy. CARDIOVASCULAR: Regular rate and rhythm without murmurs, gallops, or rubs. RESPIRATORY: Breath sounds equal bilaterally. No accessory muscle use. coarse bilateral breath sounds GASTROINTESTINAL: Abdomen soft, non-tender, nondistended. MUSCULOSKELETAL: No cyanosis, or edema. BACK: Nontender without obvious deformity. No CVA tenderness. Vital Signs Date Time Temp Pulse Resp B/P Pulse Ox O2 Delivery O2 Flow Rate FiO2 10/25/16 08:00 95 Nasal Cannula 3.00 10/25/16 03:36 97.9 87 15 101/64 94 10/25/16 03:36 94 Nasal Cannula 3.00 10/25/16 03:36 87 10/24/16 23:00 94 Nasal Cannula 3.00 10/24/16 23:00 98.0 90 18 94/70 94 10/24/16 23:00 95 10/24/16 21:31 Nasal Cannula 3.00 10/24/16 19:11 95 Nasal Cannula 3.00 10/24/16 19:11 97.8 94 16 97/76 95 10/24/16 19:00 94 10/24/16 15:13 77 10/24/16 15:13 99.1 82 18 113/65 98 10/24/16 15:12 98 Nasal Cannula 3.00 10/24/16 11:03 87 10/24/16 11:03 95 Nasal Cannula 2.00 10/24/16 11:02 98.8 87 18 80/50 95 10/24/16 11:01 18 Labs: Laboratory Tests Test 10/25/16 05:13 White Blood Count 22.1 TH/MM3 (4.0-11.0) Red Blood Count 3.48 MIL/MM3 (4.50-5.90) Hemoglobin 10.5 GM/DL (13.0-17.0) Hematocrit 30.9 % (39.0-51.0) Mean Corpuscular Volume 88.6 FL (80.0-100.0) Mean Corpuscular Hemoglobin 30.3 PG (27.0-34.0) Mean Corpuscular Hemoglobin 34.2 % Concent (32.0-36.0) Red Cell Distribution Width 14.2 % (11.6-17.2) Platelet Count 496 TH/MM3 (150-450) Mean Platelet Volume 7.1 FL (7.0-11.0) Neutrophils (%) (Auto) 87.8 % (16.0-70.0) Lymphocytes (%) (Auto) 6.5 % (9.0-44.0) Monocytes (%) (Auto) 5.3 % (0.0-8.0) Eosinophils (%) (Auto) 0.1 % (0.0-4.0) Basophils (%) (Auto) 0.3 % (0.0-2.0) Neutrophils # (Auto) 19.4 TH/MM3 (1.8-7.7) Lymphocytes # (Auto) 1.4 TH/MM3 (1.0-4.8) Monocytes # (Auto) 1.2 TH/MM3 (0-0.9) Eosinophils # (Auto) 0.0 TH/MM3 (0-0.4) Basophils # (Auto) 0.1 TH/MM3 (0-0.2) CBC Comment DIFF FINAL Differential Comment Sodium Level 137 MEQ/L (136-145) Potassium Level 4.3 MEQ/L (3.5-5.1) Chloride Level 103 MEQ/L (98-107) Carbon Dioxide Level 24.6 MEQ/L (21.0-32.0) Anion Gap 9 MEQ/L (5-15) Blood Urea Nitrogen 24 MG/DL (7-18) Creatinine 0.96 MG/DL (0.60-1.30) Estimat Glomerular Filtration 77 ML/MIN (>89) Rate Random Glucose 88 MG/DL (74-106) Calcium Level 8.2 MG/DL (8.5-10.1) Magnesium Level 2.6 MG/DL (1.5-2.5) Total Bilirubin 0.6 MG/DL (0.2-1.0) Direct Bilirubin 0.2 MG/DL (0.0-0.2) Indirect Bilirubin 0.4 MG/DL (0.0-0.8) Aspartate Amino Transf 143 U/L (15-37) (AST/SGOT) Alanine Aminotransferase 166 U/L (12-78) (ALT/SGPT) Alkaline Phosphatase 86 U/L (45-117) Total Protein 5.9 GM/DL (6.4-8.2) Albumin 2.3 GM/DL (3.4-5.0) Result Diagram: 10/25/1651210/25/16512 Telemetry: NSR (1) NSTEMI (non-ST elevated myocardial infarction) Plan: Stable s/p NSTEMI and CABG. BP's better, ASA, BB , no statin at this time with elevated LFT's will need Lifr Vest at discharge . Cont post op care. . Patient to f/u closely with his client application support specialist in [place] on return home. (2) Ischemic cardiomyopathy Plan: EF apparently close to 15% by intraoperative RAFAEL. Agree patient needs Life Vest external defibrillator for 3 months. start BB, eval for Sammy in am (3) Hyperlipidemia Plan: Suboptimal lipid profile. On statin with LFT's. Overall would rec holding statin and evaluating etiology of increased LFTs. (4) HTN (hypertension) Plan: Hypertension not active issue. Problem Qualifiers (1) Hyperlipidemia: Qualified Code: E78.2 - Mixed hyperlipidemia Jessica Vargas Oct 25, 2016 09:50
[2016-10-25] MEDS: POTASSIUM CHLORIDE 10 MEQ CONTROLLED RELEASE TAB PO SCH ×2 (10:04→21:42)
[2016-10-25] MEDS: CARVEDILOL 3.125 MG TAB PO SCH ×2 (10:04→21:42)
[2016-10-25] MEDS: FUROSEMIDE 20 MG/2 ML VIAL IV PUSH SCH ×2 (10:04→18:30)
[2016-10-25] MEDS ORDERED: LEVOFLOXACIN 500 MG TAB PO SCH (11:00)
--- NOTE | 2016-10-25 11:33 | HHI.PR ---
Subjective Remarks felling very tired, still in sob specially on exception afebrile , despite inc wbc wbc inc 22k , we will monitor possibly due to steroid cont lasix , I?O Objective Vitals Vital Signs Date Time Temp Pulse Resp B/P Pulse Ox O2 Delivery O2 Flow Rate FiO2 10/25/16 10:01 97 Nasal Cannula 3.00 10/25/16 10:00 95 10/25/16 09:43 92 10/25/16 08:00 91 10/25/16 08:00 95 Nasal Cannula 3.00 10/25/16 08:00 97.0 91 22 130/63 94 10/25/16 07:00 91 10/25/16 03:36 97.9 87 15 101/64 94 10/25/16 03:36 94 Nasal Cannula 3.00 10/25/16 03:36 87 10/24/16 23:00 94 Nasal Cannula 3.00 10/24/16 23:00 98.0 90 18 94/70 94 10/24/16 23:00 95 10/24/16 21:31 Nasal Cannula 3.00 10/24/16 19:11 95 Nasal Cannula 3.00 10/24/16 19:11 97.8 94 16 97/76 95 10/24/16 19:00 94 10/24/16 15:13 77 10/24/16 15:13 99.1 82 18 113/65 98 10/24/16 15:12 98 Nasal Cannula 3.00 I/O 10/24/16 10/24/16 10/24/16 10/25/16 10/25/16 10/25/16 07:00 15:00 23:00 07:00 15:00 23:00 Intake Total 2530 ml 1088 ml 980 ml Output Total 550 ml 580 ml 480 ml Balance 1980 ml 508 ml 500 ml Intake Oral 480 ml 500 ml 480 ml IV Total 2050 ml 588 ml 500 ml Output Urine Total 400 ml 550 ml 450 ml Chest Tube Drainage Total 150 ml 30 ml 30 ml # Bowel Movements 0 0 0 Result Diagram: 10/25/1651210/25/16512 Objective Remarks GENERAL: This is a well-nourished, well-developed patient, in no apparent distress. SKIN: No rashes, warm and dry HEAD: Atraumatic. Normocephalic. EYES: Pupils equal round and reactive. Extraocular motions intact. No scleral icterus. ENT: Nose without bleeding, or drainage, Airway patent. NECK: Trachea midline. Supple CARDIOVASCULAR: Regular rate and rhythm without murmurs, gallops, or rubs. RESPIRATORY: Fair air entry bilaterally. No wheezes, rales, or rhonchi. Sternal incision looks clean, vacuum in place GASTROINTESTINAL: Abdomen soft, non-tender, nondistended. Positive bowel sounds MUSCULOSKELETAL: Extremities without clubbing, cyanosis, or edema. Pedal pulses appreciated NEUROLOGICAL: Awake and alert. Moves all extremity. Normal speech.no focal neurological deficit A/P Problem List: (1) NSTEMI (non-ST elevated myocardial infarction) ICD Code: I21.4 Status: Acute (2) Dehydration ICD Code: E86.0 Status: Acute (3) HTN (hypertension) ICD Code: I10 Status: Acute (4) DM (diabetes mellitus) ICD Code: E11.9 Status: Acute (5) HCAP (healthcare-associated pneumonia) ICD Code: J18.9 Status: Acute Assessment and Plan 10/25/16: per cardio and [facility] pt will need Life Vest for EF 15%, cont diuretics, off Alonzo, add low dose BB , chest tube removed . check liver u/s , marquise, araceli, hepatitis profile A/P: 71-year-old male with - Moderate left main and severe three-vessel coronary artery disease: Appreciate input from CTS, status post CABG on 10/23/16. Continue postop protocol per CVS, s/p the Alonzo-Synephrine drip, hypotension,improved - NSTEMI: Patient with previous stents placement, patient is status post left heart catheterization with finding of Moderate left main and severe three- vessel coronary artery disease. Heparin drip/Vasotec/Statin/BB/NTG/Morphine has needed. Cardiology recommending holding statin due to elevated transaminases, will check liver ultrasound, will check hepatitis profile, will check ASMA, MARQUISE, consult GI - Acute systolic CHF: EF 35%, currently on Lasix. EARL inhibitor contraindicated secondary to low BP. Continue beta oj. - HCAP: Currently on IV Rocephin and azithromycin . Appreciate input from pulmonary medicine - HTN: continue low-dose Metoprolol. Monitor BP. - DM: Continue Levemir 5 units every 12 , Sliding scale w/ Accu-Cheks + Medium ISS - DVT Prophylaxis: On Heparin gtt Millie Sutherland MD Oct 25, 2016 11:33
[2016-10-25] MEDS ORDERED: RESP: ALBUTEROL 2.5 MG/IPRATROPIUM 0.5 MG NEB (PRN) NEB (14:00)
--- NOTE | 2016-10-25 16:23 | RADRPT ---
EXAM DATE/TIME: 10/25/2016 14:57 [facility] COMPARISON: No previous studies available for comparison. INDICATIONS : Elevated AST and ALT. MEDICAL HISTORY : Myocardial infarction. Cardiovascular disease Hypercholesterolemia. Diabetic. SURGICAL HISTORY : CABG. Cardiac catheterization. Cardiac stent. ENCOUNTER: Initial ACUITY: 1 day PAIN SCORE: 4/10 LOCATION: Bilateral upper quadrant MEASUREMENTS: LIVER: 16.5 cm length COMMON DUCT: 2 mm RIGHT KIDNEY: 10.4 x 6.7 x 5.0 cm SPLEEN: 7.3 cm length FINDINGS: LIVER: Poorly visualized left lobe due to bandaging. Visualized portions of the liver are within normal limi ts. There is normal flow velocity and direction in the main portal vein. COMMON DUCT: No intraluminal mass or stone visualized. GALLBLADDER: Small sludge in the lumen. No perceptible stone. No wall thickening or pericholecystic fluid. PANCREAS: The visualized portions are within normal limits. RIGHT KIDNEY: No hydronephrosis, stone or mass. SPLEEN: No focal lesion. CONCLUSION: No acute abnormality demonstrated. Please see above. Robert Moore MD on October 25, 2016 at 16:20 Board Certified Radiologist. This report was verified electronically.
[2016-10-25] MEDS: SENNOSIDES 8.6 MG TAB PO SCH (21:42)
[2016-10-26] VITALS (18 sets, daily range): BP systolic 90–99; BP diastolic 60–70; PULSE 72–87; RESP 16–24; TEMP 97.6–98.7; O2SAT 90–98
[2016-10-26] MEDS: INSULIN ASPART SUPPLEMENTAL SCALE SQ SCH ×5 (02:00→20:50)
[2016-10-26] MEDS: PANTOPRAZOLE SOD 40 MG DELAYED RELEASE TAB PO SCH (06:18)
[2016-10-26 06:55] LABS: AUTOMATED NEUTROPHIL # 20.3 TH/MM3 (1.8-7.7); BASOPHIL % 0.2 % (0.0-2.0); EOSINOPHIL % 0.1 % (0.0-4.0); HEMATOCRIT 34.9 % (39.0-51.0); HEMO FLAGS DIFF FINAL; LYMPH % 6.8 % (9.0-44.0); LYMPHOCYTE # 1.6 TH/MM3 (1.0-4.8); MEAN CELL VOLUME 89.9 FL (80.0-100.0); MEAN CORPUSCULAR HEMOGLOBIN 29.6 PG (27.0-34.0); MONO % 5.2 % (0.0-8.0); NEUT % 87.7 % (16.0-70.0); PLATELET COUNT 505 TH/MM3 (150-450); RED BLOOD COUNT 3.88 MIL/MM3 (4.50-5.90); RED CELL DISTRIBUTION WIDTH 14.3 % (11.6-17.2); WHITE BLOOD COUNT 23.1 TH/MM3 (4.0-11.0)
--- NOTE | 2016-10-26 07:12 | RADRPT ---
EXAM DATE/TIME: 10/26/2016 06:10 [place] COMPARISON: CHEST SINGLE AP, October 24, 2016, 5:07. INDICATIONS : Shortness of breath, possible pulmonary disease. MEDICAL HISTORY : Cardiovascular disease. SURGICAL HISTORY : Coronary artery stent. ENCOUNTER: Subsequent ACUITY: 1 day PAIN SCORE: 5/10 LOCATION: Bilateral chest FINDINGS: A single view of the chest demonstrates patchy bilateral airspace disease. This is stable on the left and may be slightly worse on the right. I do not see an associated effusion. Heart size is normal. I nterval removal of a left-sided thoracostomy tube and right IJ central venous catheter. No pneumothor ax. Median sternotomy wires are intact. CONCLUSION: 1. Bilateral patchy air space disease. This is stable in the left and may be slightly worse on the ri ght. 2. Interval removal of left thoracostomy tube without pneumothorax. Pablo Watts MD on October 26, 2016 at 7:09 Board Certified Radiologist. This report was verified electronically.
[2016-10-26 07:14] LABS: ALKALINE PHOSPHATASE 119 U/L (45-117); ALT (GPT) 123 U/L (12-78); ANION GAP 9 MEQ/L (5-15); AST (GOT) 96 U/L (15-37); BICARBONATE 25.8 MEQ/L (21.0-32.0); BLOOD UREA NITROGEN 28 MG/DL (7-18); CHLORIDE 100 MEQ/L (98-107); GLOMERULAR FILTRATION RATE 56 ML/MIN (>89); POTASSIUM 4.4 MEQ/L (3.5-5.1); SODIUM (NA) 135 MEQ/L (136-145); TOTAL BILIRUBIN ADULT 0.7 MG/DL (0.2-1.0)
[2016-10-26] MEDS: RESP: IPRATROPIUM 0.5 MG/2.5 ML NEB NEB SCH ×3 (07:33→21:45)
[2016-10-26] MEDS: methylPREDNISolone SOD SUCC 40 MG/1 ML VIAL IV PUSH SCH (08:23)
[2016-10-26] MEDS: ASPIRIN 81 MG CHEW TAB PO SCH (08:24)
[2016-10-26] MEDS: MULTIVITAMINS/MINERALS THERAPEUTIC TAB PO SCH (08:24)
[2016-10-26] MEDS: INSULIN DETEMIR 100 UNITS/ML VIAL SQ SCH ×2 (08:24→20:24)
[2016-10-26] MEDS: FUROSEMIDE 20 MG/2 ML VIAL IV PUSH SCH (08:24)
[2016-10-26] MEDS: CLOPIDOGREL 75 MG TAB PO SCH (08:24)
[2016-10-26] MEDS: CARVEDILOL 3.125 MG TAB PO SCH (08:24)
[2016-10-26] MEDS: AMIODARONE 200 MG TAB PO SCH ×2 (08:24→20:23)
[2016-10-26] MEDS: DOCUSATE SODIUM 100 MG CAP PO SCH ×3 (08:24→20:42)
[2016-10-26] MEDS: POTASSIUM CHLORIDE 10 MEQ CONTROLLED RELEASE TAB PO SCH (08:24)
[2016-10-26] MEDS: guaiFENesin E.R. 600 MG TAB PO SCH ×2 (08:24→20:48)
[2016-10-26] MEDS: SODIUM CHLORIDE 0.9% FLUSH 5 ML FLUSH IV FLUSH SCH ×2 (08:25→20:24)
[2016-10-26] MEDS: MAGNESIUM HYDROXIDE SUSP 30 ML CUP PO SCH (08:25)
[2016-10-26] MEDS: POLYETHYLENE GLYCOL 17 GM PKG PO SCH (08:25)
--- NOTE | 2016-10-26 10:03 | PD.CAR.PN ---
CVT Progress Note Subjective/Hospital Course: 71/ male visiting from [place] for the races, was out for a walk and developed chest pain , has admitted to chest pain off and on x 2 months , found to have NSTEMI Trop peaked at 21, has prior hx of CAD, ME stent in 2005, underwent cardiac cath by Dr Lucas Beyer 10/15/16 found to have multivessel disease EF 50 % PMH: CAD/ ME, stent DM, HLP. peripheral neuropathy/ prior tobacco abuse 10/17 CXR noted yesterday, multilobar PNA, + fever, leukocytosis, started on CPAP coverage strep pneum neg, neg legionella, flu neg, blood cultures neg surgery rescheduled for Monday 10/23 appreciate Pulm input will continue nebs, pulm toileting 10/18 leukocytosis improving fevers improved, not sleeping well at night still has some congested cough continue nebs, pulm toileting consult pt 10/19 remains on , still has cough CXR noted, may need ABX changed, will need to discuss with Genny Joy (pulm) continue nebs / ezpap 10/20 no fevers last night, feels fair notices HR increases with albuterol nebs/ changed to atrovent on IV diuresis , BNP 1100 scheduled for surgery on Sunday sts risk calculator revised based upon updated data. Discussed with patient and . As follows: Mortality: 5.6% Mobidity or Mortality: 40% Long LOS: 18% Permanent Stroke: 3.3% Renal Failure: 8.7% Reoperation: 11% 10/23 off pump CABG x 2 , right EVH extubated after surgery , crystalloid +2000cc/ EBL<500 urine 150cc. 10/24 up in chair remains on low dose Alonzo BP labile, hold on starting BB gentle diuresis / CVP 20 / CXR with increased interstitial markings discussed with Dr Joy, continue ABX/ change to po levaquin, pulm toileting OOB , ambulate will need to discuss EF with Dr Beyer RE: Life vest placement and may need repeat limited echo in a couple days 10/[address] Beyer , pt will need Life Vest for EF 15% add diuretics, off Alonzo add low dose BB chest tube removed OOB, 10/26 not sleeping at night will need environmental cues, avoid benzo or sleeping meds tachypneic BNP 2900, creatine worsening will give lasix 40mg this am , may need low rate bumex gtt for 12 hrs will discuss with Dr Brown/ covering for Dr Blanton today , start lovenox discussed with Dr Joy, no improvement in leukocytosis / no adjustment made on steroid dose CVC line dc, may need CT chest without contrast/ and ABX coverage changed to HCAP Objective: GENERAL: SKIN: Warm and dry./ prevena to chest / right leg incision intact and healing well HEAD: Normocephalic. EYES: No scleral icterus. No injection or drainage. NECK: Supple, trachea midline. No JVD or lymphadenopathy. CARDIOVASCULAR: Regular rate and rhythm without murmurs, gallops, or rubs. + 1 edema lower ext RESPIRATORY: Breath sounds equal bilaterally. coarse breath sounds bilaterally with bibasilar crackles some use of accessory muscles GASTROINTESTINAL: Abdomen soft, non-tender, nondistended. MUSCULOSKELETAL: No cyanosis, or clubbing BACK: Nontender without obvious deformity. No CVA tenderness. Vital Signs Date Time Temp Pulse Resp B/P Pulse Ox O2 Delivery O2 Flow Rate FiO2 10/26/16 08:00 98.7 81 16 99/70 93 10/26/16 08:00 Nasal Cannula 4.00 50 10/26/16 08:00 76 10/26/16 07:43 97 Nasal Cannula 3.00 10/26/16 06:00 78 10/26/16 05:00 80 10/26/16 04:00 87 10/26/16 03:00 82 10/26/16 03:00 98.3 86 24 92/63 90 10/26/16 03:00 90 Nasal Cannula 4.00 10/26/16 02:00 82 10/26/16 01:00 85 10/26/16 00:00 86 10/25/16 23:00 97.9 84 26 88/59 93 10/25/16 23:00 86 10/25/16 23:00 92 Nasal Cannula 4.00 10/25/16 22:00 88 10/25/16 21:00 90 10/25/16 20:35 94 Nasal Cannula 3.00 10/25/16 20:00 92 10/25/16 19:00 100 10/25/16 19:00 99.4 93 29 97/64 92 10/25/16 18:03 92 10/25/16 17:05 89 10/25/16 16:22 88 10/25/16 15:08 98.7 89 20 94/69 95 10/25/16 15:08 87 10/25/16 15:08 95 Nasal Cannula 3.00 10/25/16 14:08 93 10/25/16 13:21 95 10/25/16 12:45 95 10/25/16 11:32 98.5 101 22 120/71 94 10/25/16 11:32 96 10/25/16 11:32 94 Nasal Cannula 3.00 10/25/16 10:01 97 Nasal Cannula 3.00 10/25/16 10:00 95 Labs: Laboratory Tests Test 10/26/16 06:18 White Blood Count 23.1 TH/MM3 (4.0-11.0) Red Blood Count 3.88 MIL/MM3 (4.50-5.90) Hemoglobin 11.5 GM/DL (13.0-17.0) Hematocrit 34.9 % (39.0-51.0) Mean Corpuscular Volume 89.9 FL (80.0-100.0) Mean Corpuscular Hemoglobin 29.6 PG (27.0-34.0) Mean Corpuscular Hemoglobin 33.0 % Concent (32.0-36.0) Red Cell Distribution Width 14.3 % (11.6-17.2) Platelet Count 505 TH/MM3 (150-450) Mean Platelet Volume 7.0 FL (7.0-11.0) Neutrophils (%) (Auto) 87.7 % (16.0-70.0) Lymphocytes (%) (Auto) 6.8 % (9.0-44.0) Monocytes (%) (Auto) 5.2 % (0.0-8.0) Eosinophils (%) (Auto) 0.1 % (0.0-4.0) Basophils (%) (Auto) 0.2 % (0.0-2.0) Neutrophils # (Auto) 20.3 TH/MM3 (1.8-7.7) Lymphocytes # (Auto) 1.6 TH/MM3 (1.0-4.8) Monocytes # (Auto) 1.2 TH/MM3 (0-0.9) Eosinophils # (Auto) 0.0 TH/MM3 (0-0.4) Basophils # (Auto) 0.0 TH/MM3 (0-0.2) CBC Comment DIFF FINAL Differential Comment Sodium Level 135 MEQ/L (136-145) Potassium Level 4.4 MEQ/L (3.5-5.1) Chloride Level 100 MEQ/L (98-107) Carbon Dioxide Level 25.8 MEQ/L (21.0-32.0) Anion Gap 9 MEQ/L (5-15) Blood Urea Nitrogen 28 MG/DL (7-18) Creatinine 1.27 MG/DL (0.60-1.30) Estimat Glomerular Filtration 56 ML/MIN (>89) Rate Random Glucose 103 MG/DL (74-106) Calcium Level 8.4 MG/DL (8.5-10.1) Total Bilirubin 0.7 MG/DL (0.2-1.0) Aspartate Amino Transf 96 U/L (15-37) (AST/SGOT) Alanine Aminotransferase 123 U/L (12-78) (ALT/SGPT) Alkaline Phosphatase 119 U/L (45-117) B-Type Natriuretic Peptide 2756 PG/ML (0-100) Total Protein 6.5 GM/DL (6.4-8.2) Albumin 2.2 GM/DL (3.4-5.0) Result Diagram: 10/26/1661710/26/16617 Telemetry: NSR (1) NSTEMI (non-ST elevated myocardial infarction) (2) S/P CABG x 2 Plan: ASA, low dose BB, no dontae at this time due to low BP will need life vest at dc no benzo or sleeping meds / pt needs environmental cues may CT chest without contrast discussed with Dr Joy, aggressive pulm toileting (3) Ischemic cardiomyopathy Plan: EF apparently close to 15% by intraoperative RAFAEL. needs Life Vest external defibrillator for 3 months. continue diuresis, may need Bumex gtt hold on dontae with labile BP (4) Hyperlipidemia Plan: Suboptimal lipid profile. On statin with LFT's. Overall would rec holding statin and evaluating etiology of increased LFTs. (5) HTN (hypertension) Plan: Hypertension not active issue. (6) Community acquired pneumonia Plan: on po levaquin, may need to change ABX for HCAP (7) ASH (acute kidney injury) Plan: avoid nephrotoxins, monitor closely (8) Leukocytosis Plan: CVC line changed may need full culture workup (9) Respiratory insufficiency Plan: 02 to maintain sat >92% nebs, ezpap acapella Problem Qualifiers (1) Hyperlipidemia: Qualified Code: E78.2 - Mixed hyperlipidemia Jessica Vargas Oct 26, 2016 10:02
[2016-10-26] MEDS ORDERED: Vancomycin Consult Pharmacy 1 EA XX SCH (10:30)
--- NOTE | 2016-10-26 10:43 | HHI.PR ---
Subjective Remarks Patient sitting on the chair in mild short of breath he is on O2 nasal cannula, slightly clammy, blood pressure 90/60 He denied fever, in general not good historian but he thing he doesn't feel good Patient received a dose of iv Lasix this morning, his WBC increased to 20 3K, platelet 505 Chest x-ray showing worsening airspace disease bilaterally raising suspect of VAP/HCAP I discussed extensively with DR. Babin cardiovascular surgeon covering for Dr. Blanton, and his [facility] Objective Vitals Vital Signs Date Time Temp Pulse Resp B/P Pulse Ox O2 Delivery O2 Flow Rate FiO2 10/26/16 08:00 98.7 81 16 99/70 93 10/26/16 08:00 Nasal Cannula 4.00 50 10/26/16 08:00 76 10/26/16 07:43 97 Nasal Cannula 3.00 10/26/16 06:00 78 10/26/16 05:00 80 10/26/16 04:00 87 10/26/16 03:00 82 10/26/16 03:00 98.3 86 24 92/63 90 10/26/16 03:00 90 Nasal Cannula 4.00 10/26/16 02:00 82 10/26/16 01:00 85 10/26/16 00:00 86 10/25/16 23:00 97.9 84 26 88/59 93 10/25/16 23:00 86 10/25/16 23:00 92 Nasal Cannula 4.00 10/25/16 22:00 88 10/25/16 21:00 90 10/25/16 20:35 94 Nasal Cannula 3.00 10/25/16 20:00 92 10/25/16 19:00 100 10/25/16 19:00 99.4 93 29 97/64 92 10/25/16 18:03 92 10/25/16 17:05 89 10/25/16 16:22 88 10/25/16 15:08 98.7 89 20 94/69 95 10/25/16 15:08 87 10/25/16 15:08 95 Nasal Cannula 3.00 10/25/16 14:08 93 10/25/16 13:21 95 10/25/16 12:45 95 10/25/16 11:32 98.5 101 22 120/71 94 10/25/16 11:32 96 10/25/16 11:32 94 Nasal Cannula 3.00 I/O 10/25/16 10/25/16 10/25/16 10/26/16 10/26/16 10/26/16 07:00 15:00 23:00 07:00 15:00 23:00 Intake Total 980 ml 360 ml 540 ml Output Total 480 ml 450 ml 625 ml Balance 500 ml -90 ml -85 ml Intake Oral 480 ml 360 ml 540 ml IV Total 500 ml 0 ml Output Urine Total 450 ml 450 ml 625 ml Chest Tube Drainage Total 30 ml # Voids 3 # Bowel Movements 0 0 0 Result Diagram: 10/26/16 0618 10/26/16 0618 Imaging Last Impressions Chest X-Ray 10/26/16 06 Signed Impressions: Service Date/Time: October 06:10 - CONCLUSION: 1. Bilateral patchy air space disease. This is stable in the left and may be slightly worse on the right. 2. Interval removal of left thoracostomy tube without pneumothorax. Pablo Watts MD Liver Ultrasound 10/25/16 0000 Signed Impressions: Service Date/Time: Tuesday, October 25, 2016 14:57 - CONCLUSION: No acute abnormality demonstrated. Please see above. Robert Moore MD Abdomen X-Ray 10/21/16 0000 Signed Impressions: Service Date/Time: Friday, October 21, 2016 18:53 - CONCLUSION: Nonspecific bowel gas pattern as above. Buster Grimes MD Lower Extremity Ultrasound 10/16/16 0000 Signed Impressions: Service Date/Time: Sunday, October 16, 2016 11:30 - CONCLUSION: Venous mapping as described above. Sloan Siegel MD FACR Carotid Artery Ultrasound 10/16/16 0000 Signed Impressions: Service Date/Time: Sunday, October 16, 2016 11:08 - CONCLUSION: Negative examination for a hemodynamically significant carotid stenosis. Sloan Siegel MD Objective Remarks GENERAL frail elderly patient in mild respiratory distress SKIN: No rashes, warm and dry HEAD: Atraumatic. Normocephalic. EYES: Pupils equal round and reactive. Extraocular motions intact. No scleral icterus. ENT: Nose without bleeding, or drainage, Airway patent. NECK: Trachea midline. Supple CARDIOVASCULAR: Regular rate and rhythm without murmurs, gallops, or rubs. RESPIRATORY: Fair air entry bilaterally. No wheezes, rales, or rhonchi. Sternal incision looks clean, vacuum in place GASTROINTESTINAL: Abdomen soft, non-tender, nondistended. Positive bowel sounds MUSCULOSKELETAL: Extremities without clubbing, cyanosis, trace edema. Pedal pulses appreciated NEUROLOGICAL: Awake and alert. Moves all extremity. Normal speech.no focal neurological deficit A/P Problem List: (1) NSTEMI (non-ST elevated myocardial infarction) ICD Code: I21.4 Status: Acute (2) Dehydration ICD Code: E86.0 Status: Acute (3) HTN (hypertension) ICD Code: I10 Status: Acute (4) DM (diabetes mellitus) ICD Code: E11.9 Status: Acute (5) HCAP (healthcare-associated pneumonia) ICD Code: J18.9 Status: Acute Assessment and Plan 10/25/16: per cardio and [facility] pt will need Life Vest for EF 15%, cont diuretics, off Alonzo, add low dose BB , chest tube removed . 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, I recommended changing Levaquin by mouth to VAP/HCAP antibiotic with Vanco and Zosyn and Levaquin iv, sent for blood culture and sputum culture, urine antigen for Legionella pneumococcal, I consulted pattern chain maker supervisor and will transfer patient back to CVICU, I consulted pattern chain maker supervisor for possible need of close volume monitoring possible need for inotropic I called and discussed with Dr. Pal he graciously accepted resume care. Also discussed extensively with Dr. Babin the [facility] covering for Dr. Blanton, they may go for central line or arterial line for close monitoring blood pressure, he agreed with upgrading antibiotic, and intensive care consult. [facility] discussed with the business school dean and with the finish machine tender whom will be on board as well A/P: 71-year-old male with - Moderate left main and severe three-vessel coronary artery disease: Appreciate input from CTS, status post CABG on 10/23/16. Continue postop protocol per CVS, s/p the Alonzo-Synephrine drip for hypotension - NSTEMI: Patient with previous stents placement, patient is status post left heart catheterization with finding of Moderate left main and severe three- vessel coronary artery disease. Heparin drip/Vasotec/Statin/BB/NTG/Morphine has needed. Cardiology recommending holding statin due to elevated transaminases, liver ultrasound, negative hepatitis profile, Pending ASMA, MARQUISE , consult GI - Acute systolic CHF: EF 35%, currently on Lasix. EARL inhibitor contraindicated secondary to low BP. Continue beta oj. - HCAP: Currently on IV Rocephin and azithromycin . Appreciate input from pulmonary medicine - HTN: continue low-dose Metoprolol. Monitor BP. - DM: Continue Levemir 5 units every 12 , Sliding scale w/ Accu-Cheks + Medium ISS - DVT Prophylaxis: On Heparin gtt Millie Sutherland MD Oct 26, 2016 10:43
[2016-10-26] MEDS: ENOXAPARIN SODIUM 40 MG/0.4 ML SYRINGE SQ SCH ×2 (10:46→11:00)
[2016-10-26] MEDS: LEVOFLOXACIN 750 MG PREMIX INJ 150 ML IV SCH (11:00)
[2016-10-26] MEDS ORDERED: FUROSEMIDE 20 MG/2 ML VIAL IV PUSH ONE (11:00)
[2016-10-26] MEDS ORDERED: VANCOMYCIN INJ 1,250 MG in SODIUM CHLORID 0.9% 500 ML INJ 500 ML IV SCH (13:00)
[2016-10-26] MEDS: PIPERACIL-TAZO 4.5 GM PREMIX 100 ML IV SCH ×2 (13:36→17:41)
[2016-10-26] MEDS: VANCOMYCIN INJ 1,250 MG in SODIUM CHLOR 0.9% 250 ML INJ 250 ML IV SCH (13:37)
[2016-10-26] MEDS ORDERED: ALBUMIN HUMAN 5% 12.5 GM/250 ML BOTTLE IV ONE ×2 (16:28→17:24)
--- NOTE | 2016-10-26 16:56 | EC ---
Study Study Date:10/26/2016 STUDY CONCLUSIONS SUMMARY - Left ventricle: The cavity size was dilated. Wall thickness was normal. Systolic function was severely reduced by visual assessment. The estimated ejection fraction was in the range of 20% to 25%. Diffuse hypokinesis. - Aortic valve: Valve area: 1.99cm^2 (Vmax). - Mitral valve: Mild to moderate regurgitation. - Left atrium: The atrium was mildly dilated. - Tricuspid valve: Mild-moderate regurgitation. - Pulmonary arteries: Systolic pressure was mildly increased. PA peak pressure: 38mm Hg (S). If LV function is below 40, please consider prescribing an ACEI or ARB or document rationale for non-use. PROCEDURE DATA STUDY STATUS: Elective. Procedure: Transthoracic echocardiography. Image quality was good. Scanning was performed from the parasternal, apical, and subcostal acoustic windows. Study completion: The patient tolerated the procedure well. Transthoracic echocardiography. M-mode, complete 2D, complete spectral Doppler, and color Doppler. Height: Height: 71in. Weight: Weight: 180.6lb. Body mass index: BMI: 25.2kg/m^2. Body surface area: BSA: 2.02m^2. Patient status: Inpatient. CARDIAC ANATOMY LEFT VENTRICLE: The cavity size was dilated. Wall thickness was normal. Systolic function was severely reduced by visual assessment. The estimated ejection fraction was in the range of 20% to 25%. Diffuse hypokinesis. AORTIC VALVE: Trileaflet; mildly thickened, mildly calcified leaflets. Doppler: Transvalvular velocity was within the normal range. There was no stenosis. No regurgitation. Valve area: 1.99cm^2 (Vmax). Indexed valve area: 0.99cm^2/m^2 (Vmax). AORTA: Aortic root: The aortic root was normal in size. MITRAL VALVE: Structurally normal valve. Doppler: Transvalvular velocity was within the normal range. There was no evidence for stenosis. Mild to moderate regurgitation. LEFT ATRIUM: The atrium was mildly dilated. RIGHT VENTRICLE: The cavity size was normal. Wall thickness was normal. PULMONIC VALVE: Doppler: Transvalvular velocity was within the normal range. There was no evidence for stenosis. No regurgitation. TRICUSPID VALVE: Structurally normal valve. Doppler: Transvalvular velocity was within the normal range. Mild-moderate regurgitation. PULMONARY ARTERY: Systolic pressure was mildly increased. RIGHT ATRIUM: The atrium was normal in size. PERICARDIUM: There was no pericardial effusion. SYSTEMIC VEINS: Inferior vena cava: The vessel was normal in size. Patient weight: 180.6lb _Ejection fraction:_ 65-75% _Fractional shortening:_ 32% up to 5Kg 5-11.5Kg 11.6-22.9Kg 23-45Kg 45-57Kg Aortic Root 7-13 <17 13-22 17-27 17-27 LA diam 6-13 <23 24-38 33-47 37-40 RVID 10-17 7-15 7-15 7-18 8-17 LVIDd 12-22 <32 24-38 33-47 37-40 LVPW 2-4 3-6 5-7 6-8 7-8 IVS 2-4 3-6 5-7 6-8 7-8 BASIC MEASUREMENTS ADULT NORMAL Left ventricle LV internal dimension, ED, chordal *58 mm 43-52 level, PLAX LV internal dimension, ES, chordal *52.4 mm 23-38 level, PLAX Fractional shortening, chordal level, *10 % >29 PLAX LV posterior wall thickness, ED 9.29 mm IVS/LVPW ratio, ED 1.03 <1.3 Volume, ED, MOD, 1-plane 118 ml Volume, ES, MOD, 1-plane 100 ml Ejection fraction, MOD, 1-plane 15 % Stroke volume, MOD, 1-plane 18 ml Volume index, ED, MOD, 1-plane 58 ml/m^2 Volume index, ES, MOD, 1-plane 50 ml/m^2 Stroke index, MOD, 1-plane 8.9 ml/m^2 Volume, ED, MOD, 2-plane 147 ml Volume, ES, MOD, 2-plane 120 ml Ejection fraction, MOD, 2-plane 18 % Stroke volume, MOD, 2-plane 27 ml Volume index, ED, MOD, 2-plane 73 ml/m^2 Volume index, ES, MOD, 2-plane 59 ml/m^2 Stroke index, MOD, 2-plane 13.4 ml/m^2 Ventricular septum Septal thickness, ED 9.58 mm Aortic valve Leaflet separation *13 mm 15-26 BASIC MEASUREMENTS ADULT NORMAL Aortic valve Leaflet separation *13 mm 15-26 Aorta Root diameter, ED 21 mm 20-37 Left atrium Anterior-posterior dimension, ES *41 mm 19-40 Anterior-posterior dimension index, ES 2.03 cm/m^2 <2.2 LA/aortic root ratio 1.95 DOPPLER MEASUREMENTS ADULT NORMAL Main pulmonary artery Pressure, S *38 mm Hg =30 Aortic valve Peak velocity, S 111 cm/s Valve area, Vmax 1.99 cm^2 Valve area index, Vmax 0.99 cm^2/m^2 Mitral valve Maximal regurgitant velocity 335 cm/s Tricuspid valve Regurgitant peak velocity 286 cm/s Peak RV-RA gradient, S 33 mm Hg Maximal regurgitant velocity 286 cm/s Systemic veins Estimated CVP 10 mm Hg Right ventricle RV pressure, S *43 mm Hg <30 Pulmonic valve Peak velocity, S 115 cm/s LEGEND: Mean values are shown as u=mean value. Asterisk (*) chaudhry values outside specified normal range. Prepared and signed by Adryan Kelley [id number]
[2016-10-26] MEDS ORDERED: ALBUMIN HUMAN 5% 25 GM/500 ML BOTTLE IV ONE (17:00)
--- NOTE | 2016-10-26 17:10 | PD.CONS ---
HPI Service Critical Care Medicine Consult Requested By Primary Care Physician No Primary Care Physician History of Present Illness 71-year-old gentleman who presented to [facility] help with her non-STEMI. Hospital course was complicated prior surgery with community-acquired pneumonia he was treated with antibiotics and surgery was postponed. When he was medically optimized from respiratory point for CABG surgery he underwent procedure. Postsurgical course is complicated with hypotension and dyspnea. Patient's ejection fraction on last echo is still 15%. Critical care medicine was consulted for assistance with medical management RESPIRATORY distress and pneumonia fluid overload and congestive heart failure. Review of Systems ROS Unable to obtain patient is dyspneic Past Family Social History Allergies: Coded Allergies: No Known Allergies (Unverified , 10/14/16) Past Medical History Hyperlipidemia, CAD s/p Stent 2005, Peripheral Neuropathy DM Past Surgical History Coronary artery bypass 2016 Reported Medications Reported Meds & Active Scripts Active Reported Crestor (Rosuvastatin Calcium) 40 Mg Tab 40 Mg PO DAILY Vitamin E (Vitamin E (Topical)) 100 Unit/Gm Cre 100 Mg PO B Complete (B-Complex W/Biotin & Folic Acid) 1 Tab 1 Tab PO DAILY Gabapentin 600 Mg Tab 600 Mg PO TID pt taking 400 day can take up to 4000 daily Nortriptyline (Nortriptyline HCl) 25 Mg Cap 25 Mg PO BID Active Ordered Medications Current Medications Medications (Trade) Dose Ordered Sig/Imn Route PRN Reason Start Time Stop Time Status Last Admin Dose Admin Bisacodyl (Dulcolax Supp) 10 mg DAILY PRN [place] CONSTIPATION 10/14/16 23:30 Acetaminophen (Tylenol) 650 mg Q6H PRN PO FEVER/PAIN SCALE 1 TO 2 10/14/16 23:30 10/19/16 21:09 Miscellaneous (Pill Splitter) 1 ea UNSCH PRN OTHER SEE LABEL COMMENTS 10/15/16 02:30 Atorvastatin Calcium (Lipitor) 80 mg DAILY PO 10/16/16 12:00 Hold 10/25/16 08:13 Guaifenesin (Mucinex Er) 600 mg BID PO 10/16/16 12:00 10/27/16 08:44 Benzonatate (Tessalon) 100 mg TID PRN PO cough 10/16/16 13:15 10/22/16 21:37 Sodium Chloride (Magoffin Jostin Clutier) 2 spray Q4H PRN EACH NARE NASAL CONGESTION 10/20/16 10:30 Simethicone (Mylicon Chew) 80 mg PCHS PRN CHEW bloating 10/22/16 11:45 10/22/16 17:20 IV Flush (NS Flush) 2 ml BID IV FLUSH 10/23/16 21:00 10/27/16 08:45 IV Flush (NS Flush) 2 ml UNSCH PRN IV FLUSH FLUSH AFTER USING IV ACCESS 10/23/16 10:45 Aspirin (Aspirin Chew) 81 mg DAILY PO 10/24/16 09:00 10/27/16 08:45 Clopidogrel Bisulfate (Plavix) 75 mg DAILY PO 10/24/16 09:00 10/27/16 08:44 Pantoprazole Sodium (Protonix) 40 mg DAILY@06 PO 10/24/16 06:00 10/27/16 06:00 Acetaminophen (Tylenol) 650 mg Q4H PRN PO TEMPERATURE > 101 F 10/23/16 10:45 Acetaminophen/ Hydrocodone Bitart (Redig 5-325 Mg) 1 tab Q3H PRN PO PAIN SCALE 1 TO 5 10/23/16 10:45 10/27/16 02:00 Ondansetron HCl (Zofran Inj) 4 mg Q6H PRN IV PUSH NAUSEA OR VOMITING 10/23/16 10:45 Docusate Sodium (Colace) 100 mg BID PO 10/24/16 08:30 10/26/16 08:24 Multivitamins/ Minerals Therapeutic (Theragran M Tab) 1 tab DAILY PO 10/24/16 09:00 10/27/16 08:44 Magnesium Hydroxide (Milk Of Magnesia Liq) 30 ml DAILY PO 10/24/16 09:00 10/25/16 08:13 Polyethylene Glycol (Miralax) 17 gm DAILY PO 10/25/16 09:00 10/27/16 11:26 Sennosides (Senokot) 8.6 mg HS PO 10/24/16 21:00 10/25/16 21:42 Sodium Biphosphate/ Sodium Phosphate (Fleets Enema (Adult)) 133 ml UNSCH PRN RECTAL SEE LABEL COMMENTS 10/24/16 08:30 Dextrose (D50w (Vial) Inj) 25 ml UNSCH PRN IV HYPOGLYCEMIA-SEE COMMENTS 10/24/16 08:30 Glucagon (Glucagon Inj) 1 mg UNSCH PRN OTHER HYPOGLYCEMIA-SEE COMMENTS 10/24/16 08:30 Insulin Detemir (Levemir Inj) 5 units Q12HR SQ 10/24/16 21:00 10/26/16 20:24 Carvedilol (Coreg) 3.125 mg Q12HR PO 10/25/16 10:00 Hold 10/26/16 08:24 Amiodarone HCl (Cordarone) 200 mg Q12HR PO 10/26/16 21:00 10/27/16 08:45 Insulin Aspart (NovoLOG SUPPLEMENTAL SCALE) 1 ACHS SQ 10/26/16 11:00 10/26/16 20:50 Potassium Chloride (KCl) 10 meq DAILY PO 10/27/16 09:00 10/27/16 08:47 Enoxaparin Sodium 40 mg 40 mg Q24H SQ 10/26/16 11:00 10/27/16 11:23 Piperacillin Sod/ Tazobactam Sod 100 ml @ 200 mls/hr Q6H IV 10/26/16 12:00 10/27/16 12:40 Pharmacy Profile Note 0 ml @ 0 mls/hr UNSCH XX 10/26/16 10:30 Levofloxacin/ Dextrose (Levaquin 750 Mg Premix Inj) 150 ml @ 100 mls/hr Q24H IV 10/26/16 11:00 10/27/16 11:23 Methylprednisolone Sodium Succinate 40 mg 40 mg Q12H IV 10/26/16 21:00 10/27/16 08:44 Vancomycin HCl/ Sodium Chloride (Vancomycin Inj/ NS 250 ml Inj) 262.5 ml @ 250 mls/hr Q12H IV 10/26/16 13:00 10/27/16 14:10 Miscellaneous Information SPECIFIC LAB TO BE DRAWN:VANCOMYCIN TROUGH DATE TO... ONCE ONCE XX 10/28/16 12:45 10/28/16 12:46 Dobutamine HCl/ Dextrose (DOBUTamine PREMIX DRIP) 250 ml @ 12.345 mls/ hr [id number] IV 10/27/16 07:14 10/27/16 09:45 IV Flush (NS Flush) See Protocol DAILY IVF 10/28/16 09:00 IV Flush (NS Flush) See Protocol UNSCH PRN IVF SEE PROTOCOL TABLE 10/27/16 13:00 Heparin Sodium (Porcine) (Heparin Central Flush) See Protocol DAILY IVF 10/28/16 09:00 Heparin Sodium (Porcine) (Heparin Central Flush) See Protocol UNSCH PRN IVF SEE PROTOCOL TABLE 10/27/16 13:00 IV Flush (NS Flush) See Protocol UNSCH PRN IVF SEE PROTOCOL TABLE 10/27/16 13:00 Alprazolam 0.5 mg 0.5 mg Q6H PRN PO ANXIETY 10/27/16 13:00 Bumetanide (Bumex Inj) 100 ml @ 1 mls/hr CONTINUOUS IV 10/27/16 17:45 Family History Noncontributory Social History Negative for smoking illicit drug abuse or alcohol abuse Physical Exam Vital Signs Vital Signs Date Time Temp Pulse Resp B/P Pulse Ox O2 Delivery O2 Flow Rate FiO2 10/26/16 15:00 79 10/26/16 15:00 97.6 79 18 93/66 94 10/26/16 15:00 94 4.00 10/26/16 12:00 98.6 82 18 90/60 92 10/26/16 12:00 Nasal Cannula 4.00 50 10/26/16 12:00 80 10/26/16 11:00 72 10/26/16 10:00 76 10/26/16 09:00 86 10/26/16 08:00 98.7 81 16 99/70 93 10/26/16 08:00 Nasal Cannula 4.00 50 10/26/16 08:00 76 10/26/16 07:43 97 Nasal Cannula 3.00 10/26/16 07:00 76 10/26/16 06:00 78 10/26/16 05:00 80 10/26/16 04:00 87 10/26/16 03:00 82 10/26/16 03:00 98.3 86 24 92/63 90 10/26/16 03:00 90 Nasal Cannula 4.00 10/26/16 02:00 82 10/26/16 01:00 85 10/26/16 00:00 86 10/25/16 23:00 97.9 84 26 88/59 93 10/25/16 23:00 86 10/25/16 23:00 92 Nasal Cannula 4.00 10/25/16 22:00 88 10/25/16 21:00 90 10/25/16 20:35 94 Nasal Cannula 3.00 10/25/16 20:00 92 10/25/16 19:00 100 10/25/16 19:00 99.4 93 29 97/64 92 10/25/16 18:03 92 Physical Exam GENERAL: Well-nourished, well-developed [id number] man in respiratory distress SKIN: Warm and dry. HEAD: Normocephalic. EYES: No scleral icterus. No injection or drainage. NECK: Supple, trachea midline. No JVD or lymphadenopathy. CARDIOVASCULAR: Regular rate and rhythm without murmurs, gallops, or rubs. RESPIRATORY: Breath sounds equal bilaterally. Bilateral rhonchi and rails GASTROINTESTINAL: Abdomen soft, non-tender, nondistended. MUSCULOSKELETAL: No cyanosis, or edema. BACK: Nontender without obvious deformity. No CVA tenderness. EXTREMITIES: Laboratory Laboratory Tests Test 10/26/16 06:18 White Blood Count 23.1 Red Blood Count 3.88 Hemoglobin 11.5 Hematocrit 34.9 Mean Corpuscular Volume 89.9 Mean Corpuscular Hemoglobin 29.6 Mean Corpuscular Hemoglobin 33.0 Concent Red Cell Distribution Width 14.3 Platelet Count 505 Mean Platelet Volume 7.0 Neutrophils (%) (Auto) 87.7 Lymphocytes (%) (Auto) 6.8 Monocytes (%) (Auto) 5.2 Eosinophils (%) (Auto) 0.1 Basophils (%) (Auto) 0.2 Neutrophils # (Auto) 20.3 Lymphocytes # (Auto) 1.6 Monocytes # (Auto) 1.2 Eosinophils # (Auto) 0.0 Basophils # (Auto) 0.0 CBC Comment DIFF FINAL Differential Comment Sodium Level 135 Potassium Level 4.4 Chloride Level 100 Carbon Dioxide Level 25.8 Anion Gap 9 Blood Urea Nitrogen 28 Creatinine 1.27 Estimat Glomerular Filtration 56 Rate Random Glucose 103 Calcium Level 8.4 Total Bilirubin 0.7 Aspartate Amino Transf 96 (AST/SGOT) Alanine Aminotransferase 123 (ALT/SGPT) Alkaline Phosphatase 119 B-Type Natriuretic Peptide 2756 Total Protein 6.5 Albumin 2.2 Date/Time Procedure Status Source Growth 10/26/16 11:10 Aerobic Blood Culture Received Blood Peripheral Pending 10/26/16 11:10 Anaerobic Blood Culture Received Blood Peripheral Pending Result Diagram: 10/26/16 0618 10/26/16 0618 Imaging Last 24 hours Impressions Chest X-Ray 10/27/16 0000 Signed Impressions: Service Date/Time: Thursday, October 27, 2016 13:28 - CONCLUSION: Interval placement of a right upper extremity PICC line which is in good position. No change in primary status with bilateral pulmonary infiltrates. Mikel Salinas MD Chest X-Ray 10/27/16 0000 Signed Impressions: Service Date/Time: Thursday, October 27, 2016 07:51 - CONCLUSION: Stable chest x-ray with severe relatively diffuse bilateral airspace consolidation. There is trace pleural fluid on the right. Robert Kaplan MD Chest CT 10/27/16 0000 Signed Impressions: Service Date/Time: Thursday, October 27, 2016 13:54 - CONCLUSION: 1. Severe diffuse bilateral airspace consolidation and groundglass opacity with relatively sparing of the lung bases and subpleural regions bilaterally. There are associated small bilateral pleural effusions. These findings are stable compared to the recent chest x-rays but are new since 10/14/2016 and significantly increased compared to the 10/19/2016 chest x-ray. The imaging features are nonspecific but this could represent severe pulmonary edema in the appropriate clinical setting. ARDS or infection is also possible. 2. Nonacute findings include coronary artery calcification and 13 mm right thyroid nodule. Robert Kaplan MD Assessment and Plan Problem List: (1) DM (diabetes mellitus) ICD Code: E11.9 Status: Acute (2) NSTEMI (non-ST elevated myocardial infarction) ICD Code: I21.4 Status: Acute (3) Ischemic cardiomyopathy ICD Code: I25.5 Status: Acute (4) Community acquired pneumonia ICD Code: J18.9 Status: Acute (5) Leukocytosis ICD Code: D72.829 Status: Acute (6) Respiratory insufficiency ICD Code: R06.89 Status: Acute Assessment and Plan Respiratory failure - Underlying pneumonia - Fluid overload due to CHF - Continue nasal cannula/facemask as needed to keep saturation above 90 - Broad-spectrum antibiotic - Appreciate pulmonary input Community/hospital-acquired pneumonia - Broad-spectrum antibiotics - Urine antigen cultures - Sputum cultures and blood cultures - De-escalate per sensitivity - ID consult Coronary artery disease - Status post CABG - For the per cardiothoracic surgery CHF - PICC line placement - Dobutrex - Gentle diuresis Acute kidney injury - Monitor creatinine and electrolytes - Strict I's and O's DVT GI prophylaxis -Teds SCDs Lovenox and Pepcid Critical Care: The total critical care time was 35 minutes. Time to perform other separately billable procedures was not included in the critical care time. Bassem Pal MD Oct 26, 2016 17:10
[2016-10-26] MEDS: SENNOSIDES 8.6 MG TAB PO SCH ×3 (20:23→20:50)
[2016-10-26] MEDS: methylPREDNISolone SOD SUCC 40 MG/1 ML VIAL IV SCH (20:23)
[2016-10-27] VITALS (10 sets, daily range): BP systolic 93–113; BP diastolic 57–78; PULSE 75–96; RESP 18–28; TEMP 96.3–98.1; O2SAT 91–100
[2016-10-27] MEDS: ACETAMINOPHEN/HYDROcodone 325 MG/5 MG TAB PO PRN ×2 (02:00→23:27)
[2016-10-27] MEDS: PIPERACIL-TAZO 4.5 GM PREMIX 100 ML IV SCH ×4 (02:00→17:47)
[2016-10-27] MEDS: VANCOMYCIN INJ 1,250 MG in SODIUM CHLOR 0.9% 250 ML INJ 250 ML IV SCH ×2 (02:01→14:10)
[2016-10-27] MEDS: RESP: IPRATROPIUM 0.5 MG/2.5 ML NEB NEB SCH ×4 (04:14→21:37)
[2016-10-27 04:50] LABS: AUTOMATED NEUTROPHIL # 20.8 TH/MM3 (1.8-7.7); BASOPHIL # 0.1 TH/MM3 (0-0.2); BASOPHIL % 0.3 % (0.0-2.0); EOSINOPHIL % 0.1 % (0.0-4.0); HEMATOCRIT 33.3 % (39.0-51.0); LYMPH % 3.7 % (9.0-44.0); LYMPHOCYTE # 0.8 TH/MM3 (1.0-4.8); MEAN CELL VOLUME 89.3 FL (80.0-100.0); MEAN CORPUSCULAR HEMOGLOBIN 29.9 PG (27.0-34.0); MEAN CORPUSCULAR HGB CONC 33.5 % (32.0-36.0); MONO % 2.3 % (0.0-8.0); NEUT % 93.6 % (16.0-70.0); PLATELET COUNT 382 TH/MM3 (150-450); RED BLOOD COUNT 3.73 MIL/MM3 (4.50-5.90); RED CELL DISTRIBUTION WIDTH 14.2 % (11.6-17.2); WHITE BLOOD COUNT 22.2 TH/MM3 (4.0-11.0)
[2016-10-27 04:52] LABS: HEMO FLAGS AUTO DIFF
[2016-10-27 05:19] LABS: BICARBONATE 25.7 MEQ/L (21.0-32.0); MAGNESIUM 2.6 MG/DL (1.5-2.5); POTASSIUM 4.7 MEQ/L (3.5-5.1)
[2016-10-27] MEDS: PANTOPRAZOLE SOD 40 MG DELAYED RELEASE TAB PO SCH (06:00)
[2016-10-27] MEDS: INSULIN ASPART SUPPLEMENTAL SCALE SQ SCH ×4 (07:00→20:25)
[2016-10-27] MEDS ORDERED: ATROPINE SULFATE 1 MG/10 ML SYRINGE ONE (07:37)
[2016-10-27] MEDS ORDERED: EPINEPHrine HCL (1:10,000) 1 MG/10 ML SYRINGE ONE (07:37)
[2016-10-27 07:39] LABS: BANDS 11 % (0-6); CORRECTED NUCLEATED RBC 1 /100 WBC (0-0); NEUTROPHIL # MANUAL DIFF 17.3 TH/MM3 (1.8-7.7); POLYS (SEG NEUTROPHILS) 67 % (16-70); WBC DIFF SAMPLE 100
[2016-10-27 07:40] LABS: OVALOCYTES 1+ (NORMAL); PLATELET ESTIMATE SMEAR NORMAL (NORMAL); PLATELET MORPHOLOGY NORMAL (NORMAL); SCAN/DIFF FINAL DIFF MANUAL; TARGET CELLS 1+ (NORMAL)
--- NOTE | 2016-10-27 08:07 | RADRPT ---
EXAM DATE/TIME: 10/27/2016 07:51 [facility] COMPARISON: CHEST SINGLE AP, October 26, 2016, 6:10. INDICATIONS : Short of breath with wheezing MEDICAL HISTORY : Cardiovascular disease. SURGICAL HISTORY : Coronary artery stent. CABG. ENCOUNTER: Subsequent ACUITY: 4 - 6 days PAIN SCORE: 0/10 LOCATION: Bilateral chest FINDINGS: AP and lateral views of the chest demonstrate a normal-sized cardiac silhouette in this patient post median sternotomy. Lungs are very underinflated and there is severe airspace consolidation bilaterall y that is relatively diffuse but in the left lung more pronounced in the mid to upper lung zone. No p neumothorax is visualized. There is minimal pleural fluid on the right. The bones and soft tissues de monstrate no acute finding. CONCLUSION: Stable chest x-ray with severe relatively diffuse bilateral airspace consolidation. There is trace pl eural fluid on the right. Robert Kaplan MD on October 27, 2016 at 8:04 Board Certified Radiologist. This report was verified electronically.
[2016-10-27] MEDS ORDERED: ALPRAZolam 0.5 MG TAB ONE (08:32)
[2016-10-27 08:33] LABS: BLOOD GAS BASE EXCESS -2.1 mmol/L (-2-2); BLOOD GAS CARBOXYHEMOGLOBIN 1.4 % (0-4); BLOOD GAS HCO3 21 mmol/L (22-26); BLOOD GAS METHEMOGLOBIN 1.2 % (0-2); BLOOD GAS O2 HGB SATURATION 85 % (90-100); BLOOD GAS OXYGEN CONTENT 13.8 Vol % (12.0-20.0); BLOOD GAS PCO2 28 mmHg (38-42); BLOOD GAS PO2 55 mmHg (61-120); BLOOD GAS TOTAL HGB 11.5 G/DL (12.0-16.0); CRITICAL VALUE YES; DRAW SITE RT RADIAL; LITER FLOW 15 L/M; NUMBER OF ARTERIAL PUNCTURES 2; OXYGEN DEVICE NONREBREATHER; STAT YES; TEMP CORR TO 98.6
[2016-10-27] MEDS: methylPREDNISolone SOD SUCC 40 MG/1 ML VIAL IV SCH ×2 (08:44→20:12)
[2016-10-27] MEDS: MULTIVITAMINS/MINERALS THERAPEUTIC TAB PO SCH (08:44)
[2016-10-27] MEDS: guaiFENesin E.R. 600 MG TAB PO SCH ×2 (08:44→20:11)
[2016-10-27] MEDS: CLOPIDOGREL 75 MG TAB PO SCH (08:44)
[2016-10-27] MEDS ORDERED: FUROSEMIDE 20 MG/2 ML VIAL IV PUSH ONE (08:45)
[2016-10-27] MEDS: AMIODARONE 200 MG TAB PO SCH ×2 (08:45→20:12)
[2016-10-27] MEDS ORDERED: ALPRAZolam 0.5 MG TAB PO ONE ×2 (08:45→10:00)
[2016-10-27] MEDS: SODIUM CHLORIDE 0.9% FLUSH 5 ML FLUSH IV FLUSH SCH ×2 (08:45→20:13)
[2016-10-27] MEDS: ASPIRIN 81 MG CHEW TAB PO SCH (08:45)
[2016-10-27] MEDS: POTASSIUM CHLORIDE 10 MEQ CONTROLLED RELEASE TAB PO SCH (08:47)
[2016-10-27] MEDS: MAGNESIUM HYDROXIDE SUSP 30 ML CUP PO SCH (09:00)
[2016-10-27] MEDS: INSULIN DETEMIR 100 UNITS/ML VIAL SQ SCH ×2 (09:00→20:13)
[2016-10-27] MEDS ORDERED: FUROSEMIDE 20 MG/2 ML VIAL IV PUSH SCH (09:00)
[2016-10-27] MEDS: DOBUTamine PREMIX DRIP 250 ML IV SCH (09:45)
[2016-10-27] MEDS: LEVOFLOXACIN 750 MG PREMIX INJ 150 ML IV SCH (11:23)
[2016-10-27] MEDS: ENOXAPARIN SODIUM 40 MG/0.4 ML SYRINGE SQ SCH (11:23)
[2016-10-27] MEDS: POLYETHYLENE GLYCOL 17 GM PKG PO SCH (11:26)
--- NOTE | 2016-10-27 13:48 | RADRPT ---
EXAM DATE/TIME: 10/27/2016 13:28 [facility] COMPARISON: CHEST SINGLE AP, October 26, 2016, 6:10. INDICATIONS : Post PICC line placement. MEDICAL HISTORY : Cardiovascular disease. SURGICAL HISTORY : Coronary artery stent. CABG. ENCOUNTER: Initial ACUITY: 1 day PAIN SCORE: 4/10 LOCATION: Bilateral chest FINDINGS: A single view of the chest demonstrates placement of a right upper extremity PICC line. Tip of the PI CC line is at the age of caval junction. Extensive pulmonary infiltrate remains evident. CONCLUSION: Interval placement of a right upper extremity PICC line which is in good position. No change in primary status with bilateral pulmonary infiltrates. Mikel Salinas MD on October 27, 2016 at 13:45 Board Certified Radiologist. This report was verified electronically.
--- NOTE | 2016-10-27 14:11 | RADRPT ---
EXAM DATE/TIME: 10/27/2016 13:54 [facility] COMPARISON: CHEST PA & LAT, October 27, 2016, 7:51. CHEST SINGLE AP, October 22, 2016, 12:39. CHEST SINGLE AP, 2016, 4:40. CHEST SINGLE AP, October 16, 2016, 13:57. CHEST SINGLE AP, October 14, 2016, 20 :40. CHEST SINGLE AP, October 27, 2016, 13:28. INDICATIONS : Congestive heart failure. RADIATION DOSE: 8.64 CTDIvol (mGy) MEDICAL HISTORY : Diabetes mellitus type 2. SURGICAL HISTORY : CABG ENCOUNTER: Initial ACUITY: 1 day PAIN SCALE: 2/10 LOCATION: Right anterior TECHNIQUE: Volumetric scanning of the chest was performed. Using automated exposure control and adjustment of t he mA and/or kV according to patient size, radiation dose was kept as low as reasonably achievable to obtain optimal diagnostic quality images. FINDINGS: LUNGS: There is severe bilateral airspace consolidation and groundglass opacity involving all lobes. It is m ore severe in the upper lung zones and somewhat spares the bases and subpleural aspect of the lungs. There is severe respiratory motion artifact. No pneumothorax is present. PLEURAE: There are small bilateral pleural effusions, left slightly larger than right. MEDIASTINUM: There is coronary artery calcification and atherosclerotic disease of aorta. No lymphadenopathy is vi sualized. Right upper extremity PICC is present with distal tip in the superior vena cava. AXILLAE: Within normal limits. No lymphadenopathy. MUSCULOSKELETAL: There are degenerative changes of the thoracic spine. Patient is post median sternotomy. MISCELLANEOUS: The visualized upper abdominal organs demonstrate no acute abnormality. There is a 13 mm hypodense no dule in the lower pole of the right thyroid gland. CONCLUSION: 1. Severe diffuse bilateral airspace consolidation and groundglass opacity with relatively sparing of the lung bases and subpleural regions bilaterally. There are associated small bilateral pleural effu sions. These findings are stable compared to the recent chest x-rays but are new since 10/14/2016 and significantly increased compared to the 10/19/2016 chest x-ray. The imaging features are nonspecific bu t this could represent severe pulmonary edema in the appropriate clinical setting. ARDS or infection is also possible. 2. Nonacute findings include coronary artery calcification and 13 mm right thyroid nodule. Robert Kaplan MD on October 27, 2016 at 14:02 Board Certified Radiologist. This report was verified electronically.
--- NOTE | 2016-10-27 16:20 | HHI.CCPN ---
Objective Vital Signs Date Time Temp Pulse Resp B/P Pulse Ox O2 Delivery O2 Flow Rate FiO2 10/27/16 11:00 97.1 76 28 103/68 100 10/27/16 11:00 Non-Rebreather 15.00 100 Intake and Output 10/26/16 10/26/16 10/27/16 08:00 16:00 00:00 Intake Total 540 ml 1410 ml Output Total 625 ml 725 ml Balance -85 ml 685 ml Result Diagram: 10/27/16 0440 10/27/16 0440 Other Results Laboratory Tests Test 10/27/16 08:23 Blood Gas Puncture Site RT RADIAL Blood Gas Patient Temperature 98.6 Blood Gas HCO3 21 mmol/L (22-26) Blood Gas Base Excess -2.1 mmol/L (-2-2) Blood Gas Oxygen Saturation 85 % (90-100) Arterial Blood pH 7.49 (7.380-7.420) Arterial Blood Partial 28 mmHg (38-42) Pressure CO2 Arterial Blood Partial 55 mmHg Pressure O2 (61-120) Arterial Blood Oxygen Content 13.8 Vol % (12.0-20.0) Arterial Blood 1.4 % (0-4) Carboxyhemoglobin Arterial Blood Methemoglobin 1.2 % (0-2) Blood Gas Hemoglobin 11.5 G/DL (12.0-16.0) Oxygen Delivery Device NONREBREATHER Blood Gas Liter Flow 15 L/M Imaging Last 24 hours Impressions Chest X-Ray 10/27/16 0000 Signed Impressions: Service Date/Time: Thursday, October 27, 2016 13:28 - CONCLUSION: Interval placement of a right upper extremity PICC line which is in good position. No change in primary status with bilateral pulmonary infiltrates. Mikel Salinas MD Chest X-Ray 10/27/16 0000 Signed Impressions: Service Date/Time: Thursday, October 27, 2016 07:51 - CONCLUSION: Stable chest x-ray with severe relatively diffuse bilateral airspace consolidation. There is trace pleural fluid on the right. Robert Kaplan MD Chest CT 10/27/16 0000 Signed Impressions: Service Date/Time: Thursday, October 27, 2016 13:54 - CONCLUSION: 1. Severe diffuse bilateral airspace consolidation and groundglass opacity with relatively sparing of the lung bases and subpleural regions bilaterally. There are associated small bilateral pleural effusions. These findings are stable compared to the recent chest x-rays but are new since 10/14/2016 and significantly increased compared to the 10/19/2016 chest x-ray. The imaging features are nonspecific but this could represent severe pulmonary edema in the appropriate clinical setting. ARDS or infection is also possible. 2. Nonacute findings include coronary artery calcification and 13 mm right thyroid nodule. Robert Kaplan MD Objective Remarks GENERAL: Well-nourished, well-developed [id number] man in respiratory distress SKIN: Warm and dry. HEAD: Normocephalic. EYES: No scleral icterus. No injection or drainage. NECK: Supple, trachea midline. No JVD or lymphadenopathy. CARDIOVASCULAR: Regular rate and rhythm without murmurs, gallops, or rubs. RESPIRATORY: Breath sounds equal bilaterally. Bilateral rhonchi and rails GASTROINTESTINAL: Abdomen soft, non-tender, nondistended. MUSCULOSKELETAL: No cyanosis, or edema. BACK: Nontender without obvious deformity. No CVA tenderness. EXTREMITIES: A/P Problem List: (1) DM (diabetes mellitus) ICD Code: E11.9 Status: Acute (2) NSTEMI (non-ST elevated myocardial infarction) ICD Code: I21.4 Status: Acute (3) Ischemic cardiomyopathy ICD Code: I25.5 Status: Acute (4) Community acquired pneumonia ICD Code: J18.9 Status: Acute (5) Leukocytosis ICD Code: D72.829 Status: Acute (6) Respiratory insufficiency ICD Code: R06.89 Status: Acute Assessment and Plan Respiratory failure - Underlying pneumonia - Fluid overload due to CHF - Continue nasal cannula/facemask as needed to keep saturation above 90 - Broad-spectrum antibiotic - Appreciate pulmonary input Community/hospital-acquired pneumonia - Broad-spectrum antibiotics - Urine antigen cultures - Sputum cultures and blood cultures - De-escalate per sensitivity - ID consult Coronary artery disease - Status post CABG - For the per cardiothoracic surgery CHF - PICC line placement - Dobutrex - Gentle diuresis Acute kidney injury - Monitor creatinine and electrolytes - Strict I's and O's DVT GI prophylaxis -Teds SCDs Lovenox and Pepcid Critical Care: The total critical care time was 35 minutes. Time to perform other separately billable procedures was not included in the critical care time. Bassem Pal MD Oct 27, 2016 16:20
[2016-10-27] MEDS: ALPRAZolam 0.5 MG TAB PO PRN ×2 (16:23→20:11)
[2016-10-27] MEDS ORDERED: BUMETANIDE INJ 100 ML IV SCH (17:45)
[2016-10-27] MEDS: SENNOSIDES 8.6 MG TAB PO SCH (20:12)
[2016-10-27] MEDS: DOCUSATE SODIUM 100 MG CAP PO SCH (20:12)
--- NOTE | 2016-10-27 21:39 | PD.ID.CON ---
History of Present Illness Service ID Consult Requested By Dr Pal Reason for Consult PNA Primary Care Physician No Primary Care Physician Diagnoses: History of Present Illness 71 yo male with DM, sp NSTEMI sp 2 vessel CABG x 2 post op day # 4, extubated post -op uneventfully this am developped respiratory distress requireing placement on non rebreather He has now fever but has significant leukocytosis of 22 K he denies cough and unable to expectorate [place] [address]00[place] CT chest showed Severe diffuse bilateral airspace consolidation and groundglass opacity Review of Systems Except as stated in HPI: all other systems reviewed are Neg Past Family Social History Allergies: Coded Allergies: No Known Allergies (Unverified , 10/14/16) Past Medical History Hyperlipidemia, CAD s/p Stent 2005, Peripheral Neuropathy DM Past Surgical History Coronary artery bypass 2016 Active Ordered Medications Medications where reviewed in EMR Antibiotics Include: zosyn levaquin vanco Family History Non-Contributory. Social History No Tobacco. No ETOH. No Illicit Drugs. Physical Exam Vital Signs Vital Signs Date Time Temp Pulse Resp B/P Pulse Ox O2 Delivery O2 Flow Rate FiO2 10/27/16 19:00 99 Non-Rebreather 15.00 100 10/27/16 15:00 98 Non-Rebreather 15.00 100 10/27/16 15:00 97.3 84 28 93/57 100 10/27/16 15:00 84 10/27/16 11:00 97.1 76 28 103/68 100 10/27/16 11:00 100 Non-Rebreather 15.00 100 10/27/16 11:00 75 10/27/16 08:47 92 Non-Rebreather 15.00 10/27/16 08:00 91 Non-Rebreather 15.00 100 10/27/16 08:00 96.3 78 28 113/78 91 10/27/16 08:00 78 10/27/16 04:00 92 5.00 10/27/16 04:00 78 10/27/16 04:00 97.6 76 22 106/73 93 10/27/16 03:00 22 10/27/16 00:00 76 10/27/16 00:00 97.8 75 18 100/67 95 10/27/16 00:00 95 4.00 10/26/16 21:46 98 Nasal Cannula 5.00 Physical Exam CONSTITUTIONAL/GENERAL: This is an adequately nourished patient, in mild resp distress. TUBES/LINES/DRAINS: SKIN: No jaundice, rashes, or lesions. Skin temperature appropriate. Not diaphoretic. HEAD: Atraumatic. Normocephalic. EYES: Pupils equal and round and reactive. Extraocular motions intact. No scleral icterus. No injection or drainage. Fundi not examined. ENT: Hearing grossly normal. Nose without bleeding or purulent drainage. Throat without visible erythema, exudates, masses, or lesions. NECK: Trachea midline. Supple, nontender. CARDIOVASCULAR: Regular rate and rhythm without murmurs, gallops, or rubs. No JVD. Peripheral pulses symmetric. Surgical dressing in place RESPIRATORY/CHEST: Symmetric, unlabored respirations. Crackes present to auscultation. Breath sounds equal bilaterally. GASTROINTESTINAL: Abdomen soft, non-tender, nondistended. No hepato-splenomegaly , or palpable masses. No guarding. Bowel sounds present. GENITOURINARY: Without palpable bladder distension. Ramirez catheter in place with clear yellow urine MUSCULOSKELETAL: Extremities without clubbing, + cyanosis, or edema. No joint tenderness or effusion noted. No calf tenderness. + mottling on the kneeds present LYMPHATICS: No palpable cervical or supraclavicular adenopathy. NEUROLOGICAL: Awake and alert. Motor and sensory grossly within normal limits. Follows commands. Normal speech Moves all extremities. PSYCHIATRIC: No obvious anxiety/depression. no apparent hallucinations Laboratory Laboratory Tests Test 10/27/16 10/27/16 04:40 08:23 White Blood Count 22.2 Red Blood Count 3.73 Hemoglobin 11.2 Hematocrit 33.3 Mean Corpuscular Volume 89.3 Mean Corpuscular Hemoglobin 29.9 Mean Corpuscular Hemoglobin 33.5 Concent Red Cell Distribution Width 14.2 Platelet Count 382 Mean Platelet Volume 6.6 Neutrophils (%) (Auto) 93.6 Lymphocytes (%) (Auto) 3.7 Monocytes (%) (Auto) 2.3 Eosinophils (%) (Auto) 0.1 Basophils (%) (Auto) 0.3 Neutrophils # (Auto) 20.8 Lymphocytes # (Auto) 0.8 Monocytes # (Auto) 0.5 Eosinophils # (Auto) 0.0 Basophils # (Auto) 0.1 CBC Comment AUTO DIFF Differential Total Cells 100 Counted Neutrophils % (Manual) 67 Band Neutrophils % 11 Lymphocytes % 11 Monocytes % 11 Neutrophils # (Manual) 17.3 Nucleated Red Blood Cells 1 Differential Comment FINAL DIFF MANUAL Platelet Estimate NORMAL Platelet Morphology Comment NORMAL Target Cells 1+ Ovalocytes 1+ Sodium Level 138 Potassium Level 4.7 Chloride Level 103 Carbon Dioxide Level 25.7 Anion Gap 9 Blood Urea Nitrogen 29 Creatinine 1.17 Estimat Glomerular Filtration 62 Rate Random Glucose 89 Calcium Level 8.4 Magnesium Level 2.6 Blood Gas Puncture Site RT RADIAL Blood Gas Patient Temperature 98.6 Blood Gas HCO3 21 Blood Gas Base Excess -2.1 Blood Gas Oxygen Saturation 85 Arterial Blood pH 7.49 Arterial Blood Partial 28 Pressure CO2 Arterial Blood Partial 55 Pressure O2 Arterial Blood Oxygen Content 13.8 Arterial Blood 1.4 Carboxyhemoglobin Arterial Blood Methemoglobin 1.2 Blood Gas Hemoglobin 11.5 Oxygen Delivery Device NONREBREATHER Blood Gas Liter Flow 15 Date/Time Procedure Status Source Growth 10/26/16 11:10 Aerobic Blood Culture - Preliminary Resulted Blood Peripheral NO GROWTH IN 1 DAY 10/26/16 11:10 Anaerobic Blood Culture - Preliminary Resulted Blood Peripheral NO GROWTH IN 1 DAY Result Diagram: 10/27/16 0440 10/27/16 0440 Imaging Last Impressions Chest X-Ray 10/27/16 0000 Signed Impressions: Service Date/Time: Thursday, October 27, 2016 13:28 - CONCLUSION: Interval placement of a right upper extremity PICC line which is in good position. No change in primary status with bilateral pulmonary infiltrates. Mikel Salinas MD Chest CT 10/27/16 0000 Signed Impressions: Service Date/Time: Thursday, October 27, 2016 13:54 - CONCLUSION: 1. Severe diffuse bilateral airspace consolidation and groundglass opacity with relatively sparing of the lung bases and subpleural regions bilaterally. There are associated small bilateral pleural effusions. These findings are stable compared to the recent chest x-rays but are new since 10/14/2016 and significantly increased compared to the 10/19/2016 chest x-ray. The imaging features are nonspecific but this could represent severe pulmonary edema in the appropriate clinical setting. ARDS or infection is also possible. 2. Nonacute findings include coronary artery calcification and 13 mm right thyroid nodule. Robert Kaplan MD Liver Ultrasound 10/25/16 0000 Signed Impressions: Service Date/Time: Tuesday, October 25, 2016 14:57 - CONCLUSION: No acute abnormality demonstrated. Please see above. Robert Moore MD Abdomen X-Ray 10/21/16 0000 Signed Impressions: Service Date/Time: Friday, October 21, 2016 18:53 - CONCLUSION: Nonspecific bowel gas pattern as above. Buster Grimes MD Lower Extremity Ultrasound 10/16/16 0000 Signed Impressions: Service Date/Time: Sunday, October 16, 2016 11:30 - CONCLUSION: Venous mapping as described above. Sloan Siegel MD FACR Carotid Artery Ultrasound 10/16/16 0000 Signed Impressions: Service Date/Time: Sunday, October 16, 2016 11:08 - CONCLUSION: Negative examination for a hemodynamically significant carotid stenosis. Sloan Siegel MD Assessment and Plan Assessment and Plan sp CABG ?PNA vs pulm edema/ ARDS CHF - obtain sputum clx - change zosyn to cefeppiem - cont vanco and levaquine - chk influneza - chk lactic acid Discussed Condition With Jackie Bello MD Oct 27, 2016 21:38
[2016-10-27] MEDS: CEFEPIME INJ 2,000 MG in SODIUM CHLORIDE 0.9% INJ 100 ML IV SCH (23:27)
[2016-10-28] VITALS (8 sets, daily range): BP systolic 90–105; BP diastolic 43–63; PULSE 70–80; RESP 16–24; TEMP 97.1–98.7; O2SAT 94–100
[2016-10-28 00:14] LABS: BACTERIA, URINE FEW /hpf; BLOOD, URINE TRACE (NEG); GLUCOSE,URINE NEG (NEG); HYALINE CAST, URINE 26 /lpf (RARE); KETONE, URINE NEG (NEG); MUCUS URINE FEW /lpf (OCC); NITRITE,URINE NEG (NEG); PH, URINE 5.5 (5.0-8.5); URINE COLOR LIGHT-YELLOW (YELLW/STRAW)
[2016-10-28 00:16] LABS: COMMENT (UR) CATH-CULTURE IND; CULTURE IF INDICATED CATH CULTURE IND
[2016-10-28] MEDS: VANCOMYCIN INJ 1,250 MG in SODIUM CHLOR 0.9% 250 ML INJ 250 ML IV SCH ×2 (00:16→13:51)
[2016-10-28] MEDS: ACETAMINOPHEN/HYDROcodone 325 MG/5 MG TAB PO PRN (03:31)
[2016-10-28] MEDS: RESP: IPRATROPIUM 0.5 MG/2.5 ML NEB NEB SCH ×4 (03:40→21:34)
[2016-10-28] MEDS: PANTOPRAZOLE SOD 40 MG DELAYED RELEASE TAB PO SCH (04:34)
[2016-10-28] MEDS: ALPRAZolam 0.5 MG TAB PO PRN (04:34)
[2016-10-28] MEDS: DOBUTamine PREMIX DRIP 250 ML IV SCH (04:34)
[2016-10-28 05:12] LABS: BICARBONATE 28.6 MEQ/L (21.0-32.0); POTASSIUM 3.7 MEQ/L (3.5-5.1)
[2016-10-28] MEDS: INSULIN ASPART SUPPLEMENTAL SCALE SQ SCH ×4 (06:43→20:47)
--- NOTE | 2016-10-28 08:32 | PD.CAR.PN ---
CVT Progress Note Subjective/Hospital Course: 71/ male visiting from [place] for the races, was out for a walk and developed chest pain , has admitted to chest pain off and on x 2 months , found to have NSTEMI Trop peaked at 21, has prior hx of CAD, IA stent in 2005, underwent cardiac cath by Dr Lucas Beyer 10/15/16 found to have multivessel disease EF 50 % PMH: CAD/ IA, stent DM, HLP. peripheral neuropathy/ prior tobacco abuse 10/17 CXR noted yesterday, multilobar PNA, + fever, leukocytosis, started on CPAP coverage strep pneum neg, neg legionella, flu neg, blood cultures neg surgery rescheduled for Monday 10/23 appreciate Pulm input will continue nebs, pulm toileting 10/18 leukocytosis improving fevers improved, not sleeping well at night still has some congested cough continue nebs, pulm toileting consult pt 10/19 remains on , still has cough CXR noted, may need ABX changed, will need to discuss with Genny Joy (pulm) continue nebs / ezpap 10/20 no fevers last night, feels fair notices HR increases with albuterol nebs/ changed to atrovent on IV diuresis , BNP 1100 scheduled for surgery on Sunday sts risk calculator revised based upon updated data. Discussed with patient and . As follows: Mortality: 5.6% Mobidity or Mortality: 40% Long LOS: 18% Permanent Stroke: 3.3% Renal Failure: 8.7% Reoperation: 11% 10/23 off pump CABG x 2 , right EVH extubated after surgery , crystalloid +2000cc/ EBL<500 urine 150cc. 10/24 up in chair remains on low dose Alonzo BP labile, hold on starting BB gentle diuresis / CVP 20 / CXR with increased interstitial markings discussed with Dr Joy, continue ABX/ change to po levaquin, pulm toileting OOB , ambulate will need to discuss EF with Dr Beyer RE: Life vest placement and may need repeat limited echo in a couple days 10/[address] Beyer , pt will need Life Vest for EF 15% add diuretics, off Alonzo add low dose BB chest tube removed OOB, 10/26 not sleeping at night will need environmental cues, avoid benzo or sleeping meds tachypneic BNP 2900, creatine worsening will give lasix 40mg this am , may need low rate bumex gtt for 12 hrs will discuss with Dr Brown/ covering for Dr Blanton today , start lovenox discussed with Dr Joy, no improvement in leukocytosis / no adjustment made on steroid dose CVC line dc, may need CT chest without contrast/ and ABX coverage changed to HCAP 10/28 Resting this am Good diuresis yesterday Continue with Dobutamine and Bumex Greatly appreciate [employer] input and assistance Objective: Vital Signs Date Time Temp Pulse Resp B/P Pulse Ox O2 Delivery O2 Flow Rate FiO2 10/28/16 07:00 98.7 72 22 105/63 94 10/28/16 03:00 98 Non-Rebreather 15.00 100 10/28/16 03:00 71 10/28/16 03:00 97.4 70 20 99/62 97 10/27/16 23:00 99 Non-Rebreather 15.00 100 10/27/16 23:00 76 10/27/16 23:00 98.1 75 24 100/64 99 10/27/16 21:38 96 Non-Rebreather 15.00 100 10/27/16 19:30 98.1 96 20 100/69 99 10/27/16 19:00 99 Non-Rebreather 15.00 100 10/27/16 19:00 79 10/27/16 15:00 98 Non-Rebreather 15.00 100 10/27/16 15:00 97.3 84 28 93/57 100 10/27/16 15:00 84 10/27/16 11:00 97.1 76 28 103/68 100 10/27/16 11:00 100 Non-Rebreather 15.00 100 10/27/16 11:00 75 10/27/16 08:47 92 Non-Rebreather 15.00 Labs: Laboratory Tests Test 10/27/16 10/27/16 10/28/16 22:36 23:40 04:09 Lactic Acid Level 2.7 mmol/L (0.4-2.0) Urine Color LIGHT-YELLOW (YELLW/STRAW) Urine Turbidity CLEAR (CLEAR) Urine pH 5.5 (5.0-8.5) Urine Specific [place] 1.008 (1.002-1.035) Urine Protein NEG mg/dL (NEG-TRACE) Urine Glucose (UA) NEG mg/dL (NEG) Urine Ketones NEG mg/dL (NEG) Urine Occult Blood TRACE (NEG) Urine Nitrite NEG (NEG) Urine Bilirubin NEG (NEG) Urine Urobilinogen LESS THAN 2.0 MG/DL (LESS THAN 2.0) Urine Leukocyte Esterase MOD (NEG) Urine RBC 5 /hpf (0-3) Urine WBC 21 /hpf (0-5) Urine WBC Clumps OCC (NONE) Urine Amorphous Sediment RARE Urine Bacteria FEW /hpf (NONE) Urine Hyaline Casts 26 /lpf (RARE) Urine Mucus FEW /lpf (OCC) Microscopic Urinalysis Comment CATH-CULTURE IND Sodium Level 137 MEQ/L (136-145) Potassium Level 3.7 MEQ/L (3.5-5.1) Chloride Level 99 MEQ/L (98-107) Carbon Dioxide Level 28.6 MEQ/L (21.0-32.0) Anion Gap 9 MEQ/L (5-15) Blood Urea Nitrogen 28 MG/DL (7-18) Creatinine 1.27 MG/DL (0.60-1.30) Estimat Glomerular Filtration 56 ML/MIN (>89) Rate Random Glucose 197 MG/DL (74-106) Calcium Level 7.8 MG/DL (8.5-10.1) Result Diagram: 10/27/1643910/28/169 (1) NSTEMI (non-ST elevated myocardial infarction) (2) S/P CABG x 2 Plan: ASA, low dose BB, no dontae at this time due to low BP will need life vest at dc no benzo or sleeping meds / pt needs environmental cues may CT chest without contrast discussed with Dr Joy, aggressive pulm toileting (3) Ischemic cardiomyopathy Plan: EF apparently close to 15% by intraoperative RAFAEL. needs Life Vest external defibrillator for 3 months. continue diuresis, may need Bumex gtt hold on dontae with labile BP (4) Hyperlipidemia Plan: Suboptimal lipid profile. On statin with LFT's. Overall would rec holding statin and evaluating etiology of increased LFTs. (5) HTN (hypertension) Plan: Hypertension not active issue. (6) Community acquired pneumonia Plan: on po levaquin, may need to change ABX for HCAP (7) ASH (acute kidney injury) Plan: avoid nephrotoxins, monitor closely (8) Leukocytosis Plan: CVC line changed may need full culture workup (9) Respiratory insufficiency Plan: 02 to maintain sat >92% nebs, ezpap acapella Problem Qualifiers (1) Hyperlipidemia: Qualified Code: E78.2 - Mixed hyperlipidemia Brendan Blanton MD Oct 28, 2016 08:32
[2016-10-28] MEDS: CEFEPIME INJ 2,000 MG in SODIUM CHLORIDE 0.9% INJ 100 ML IV SCH ×2 (09:02→16:40)
[2016-10-28] MEDS: POLYETHYLENE GLYCOL 17 GM PKG PO SCH (09:02)
[2016-10-28] MEDS: MAGNESIUM HYDROXIDE SUSP 30 ML CUP PO SCH (09:02)
[2016-10-28] MEDS: INSULIN DETEMIR 100 UNITS/ML VIAL SQ SCH ×2 (09:02→20:47)
[2016-10-28] MEDS: MULTIVITAMINS/MINERALS THERAPEUTIC TAB PO SCH (09:03)
[2016-10-28] MEDS: POTASSIUM CHLORIDE 10 MEQ CONTROLLED RELEASE TAB PO SCH (09:03)
[2016-10-28] MEDS: AMIODARONE 200 MG TAB PO SCH ×2 (09:03→20:48)
[2016-10-28] MEDS: CLOPIDOGREL 75 MG TAB PO SCH (09:03)
[2016-10-28] MEDS: SODIUM CHLORIDE 0.9% FLUSH 5 ML FLUSH IV FLUSH SCH ×2 (09:03→20:48)
[2016-10-28] MEDS: DOCUSATE SODIUM 100 MG CAP PO SCH ×2 (09:03→20:59)
[2016-10-28] MEDS: ASPIRIN 81 MG CHEW TAB PO SCH (09:04)
[2016-10-28] MEDS: guaiFENesin E.R. 600 MG TAB PO SCH ×2 (09:04→20:47)
[2016-10-28] MEDS: methylPREDNISolone SOD SUCC 40 MG/1 ML VIAL IV SCH ×2 (09:04→21:00)
[2016-10-28 09:20] LABS: AUTOMATED NEUTROPHIL # 17.6 TH/MM3 (1.8-7.7); BASOPHIL # 0.1 TH/MM3 (0-0.2); BASOPHIL % 0.5 % (0.0-2.0); HEMATOCRIT 32.3 % (39.0-51.0); HEMO FLAGS DIFF FINAL; LYMPH % 2.7 % (9.0-44.0); LYMPHOCYTE # 0.5 TH/MM3 (1.0-4.8); MEAN CELL VOLUME 88.6 FL (80.0-100.0); MEAN CORPUSCULAR HEMOGLOBIN 30.3 PG (27.0-34.0); MEAN CORPUSCULAR HGB CONC 34.2 % (32.0-36.0); MONO % 3.7 % (0.0-8.0); NEUT % 93.1 % (16.0-70.0); PLATELET COUNT 279 TH/MM3 (150-450); RED BLOOD COUNT 3.65 MIL/MM3 (4.50-5.90); RED CELL DISTRIBUTION WIDTH 14.6 % (11.6-17.2); WHITE BLOOD COUNT 18.9 TH/MM3 (4.0-11.0)
--- NOTE | 2016-10-28 10:50 | HHI.CCPN ---
Subjective Remarks/Hospital Course 71-year-old gentleman who presented to [facility] with her non-STEMI. Hospital course was complicated prior surgery with community-acquired pneumonia he was treated with antibiotics and surgery was postponed. When he was medically optimized from respiratory point for CABG surgery he underwent procedure. Postsurgical course is complicated with hypotension and dyspnea. Patient's ejection fraction on last echo is still 15%. Critical care medicine was consulted for assistance with medical management RESPIRATORY distress and pneumonia fluid overload and congestive heart failure. Objective Vital Signs Date Time Temp Pulse Resp B/P Pulse Ox O2 Delivery O2 Flow Rate FiO2 10/28/16 09:23 99 Non-Rebreather 15.00 10/28/16 07:00 100 10/28/16 07:00 72 10/28/16 07:00 98.7 22 105/63 Intake and Output 10/27/16 10/27/16 10/28/16 08:00 16:00 00:00 Intake Total 970 ml 1112 ml Output Total 900 ml 1490 ml Balance 70 ml -378 ml Result Diagram: 10/28/16 0858 10/28/16 0409 Imaging Last 24 hours Impressions Chest X-Ray 10/27/16 0000 Signed Impressions: Service Date/Time: Thursday, October 27, 2016 13:28 - CONCLUSION: Interval placement of a right upper extremity PICC line which is in good position. No change in primary status with bilateral pulmonary infiltrates. Mikel Salinas MD Chest X-Ray 10/27/16 0000 Signed Impressions: Service Date/Time: Thursday, October 27, 2016 07:51 - CONCLUSION: Stable chest x-ray with severe relatively diffuse bilateral airspace consolidation. There is trace pleural fluid on the right. Robert Kaplan MD Chest CT 10/27/16 0000 Signed Impressions: Service Date/Time: Thursday, October 27, 2016 13:54 - CONCLUSION: 1. Severe diffuse bilateral airspace consolidation and groundglass opacity with relatively sparing of the lung bases and subpleural regions bilaterally. There are associated small bilateral pleural effusions. These findings are stable compared to the recent chest x-rays but are new since 10/14/2016 and significantly increased compared to the 10/19/2016 chest x-ray. The imaging features are nonspecific but this could represent severe pulmonary edema in the appropriate clinical setting. ARDS or infection is also possible. 2. Nonacute findings include coronary artery calcification and 13 mm right thyroid nodule. Robert Kaplan MD Objective Remarks GENERAL: Well-nourished, well-developed [id number] man in respiratory distress SKIN: Warm and dry. HEAD: Normocephalic. EYES: No scleral icterus. No injection or drainage. NECK: Supple, trachea midline. No JVD or lymphadenopathy. CARDIOVASCULAR: Regular rate and rhythm without murmurs, gallops, or rubs. RESPIRATORY: Breath sounds equal bilaterally. Bilateral rhonchi and rails GASTROINTESTINAL: Abdomen soft, non-tender, nondistended. MUSCULOSKELETAL: No cyanosis, or edema. BACK: Nontender without obvious deformity. No CVA tenderness. EXTREMITIES: A/P Problem List: (1) DM (diabetes mellitus) ICD Code: E11.9 Status: Acute (2) NSTEMI (non-ST elevated myocardial infarction) ICD Code: I21.4 Status: Acute (3) Ischemic cardiomyopathy ICD Code: I25.5 Status: Acute (4) Community acquired pneumonia ICD Code: J18.9 Status: Acute (5) Leukocytosis ICD Code: D72.829 Status: Acute (6) Respiratory insufficiency ICD Code: R06.89 Status: Acute Assessment and Plan Respiratory failure - Underlying pneumonia - Fluid overload due to CHF - Continue nasal cannula/facemask as needed to keep saturation above 90 - Broad-spectrum antibiotic - Appreciate pulmonary and infectious disease input - Continue gentle diuresis with Bumex drip Community/hospital-acquired pneumonia - Broad-spectrum antibiotics - Urine antigen cultures - Sputum cultures and blood cultures - De-escalate per sensitivity - ID consult gladly appreciated Coronary artery disease - Status post CABG - Further the per cardiothoracic surgery CHF - PICC line placement - Continue Dobutrex - Gentle diuresis with Bumex drip Acute kidney injury - Monitor creatinine and electrolytes - Strict I's and O's DVT GI prophylaxis -Teds SCDs Lovenox and Pepcid Level III Bassem Pal MD Oct 28, 2016 10:50
--- NOTE | 2016-10-28 11:55 | HHI.IDPN ---
Subjective Subjective Remarks better remains on NRB sp 2.5 L of diuresis afebrile Antibiotics cefepime levaquin vanco Allergies: Coded Allergies: No Known Allergies (Unverified , 10/14/16) Objective . Vital Signs Date Time Temp Pulse Resp B/P Pulse Ox O2 Delivery O2 Flow Rate FiO2 10/28/16 09:23 99 Non-Rebreather 15.00 10/28/16 07:00 94 Non-Rebreather 15.00 100 10/28/16 07:00 72 10/28/16 07:00 98.7 72 22 105/63 94 10/28/16 03:00 98 Non-Rebreather 15.00 100 10/28/16 03:00 71 10/28/16 03:00 97.4 70 20 99/62 97 10/27/16 23:00 99 Non-Rebreather 15.00 100 10/27/16 23:00 76 10/27/16 23:00 98.1 75 24 100/64 99 10/27/16 21:38 96 Non-Rebreather 15.00 100 10/27/16 19:30 98.1 96 20 100/69 99 10/27/16 19:00 99 Non-Rebreather 15.00 100 10/27/16 19:00 79 10/27/16 15:00 98 Non-Rebreather 15.00 100 10/27/16 15:00 97.3 84 28 93/57 100 10/27/16 15:00 84 10/27/16 10/27/16 10/28/16 15:00 23:00 07:00 Intake Total 1112 ml 850 ml Output Total 1490 ml 2525 ml Balance -378 ml -1675 ml Intake Oral 440 ml 720 ml IV Total 672 ml 130 ml Output Urine Total 1490 ml 2525 ml # Bowel Movements 0 0 . Laboratory Tests Test 10/27/16 10/28/16 04:40 08:58 White Blood Count 22.2 TH/MM3 18.9 TH/MM3 Red Blood Count 3.73 MIL/MM3 3.65 MIL/MM3 Hemoglobin 11.2 GM/DL 11.0 GM/DL Hematocrit 33.3 % 32.3 % Mean Corpuscular Volume 89.3 FL 88.6 FL Mean Corpuscular Hemoglobin 29.9 PG 30.3 PG Mean Corpuscular Hemoglobin 33.5 % 34.2 % Concent Red Cell Distribution Width 14.2 % 14.6 % Platelet Count 382 TH/MM3 279 TH/MM3 Mean Platelet Volume 6.6 FL 6.8 FL Neutrophils (%) (Auto) 93.6 % 93.1 % Lymphocytes (%) (Auto) 3.7 % 2.7 % Monocytes (%) (Auto) 2.3 % 3.7 % Eosinophils (%) (Auto) 0.1 % 0.0 % Basophils (%) (Auto) 0.3 % 0.5 % Neutrophils # (Auto) 20.8 TH/MM3 17.6 TH/MM3 Lymphocytes # (Auto) 0.8 TH/MM3 0.5 TH/MM3 Monocytes # (Auto) 0.5 TH/MM3 0.7 TH/MM3 Eosinophils # (Auto) 0.0 TH/MM3 0.0 TH/MM3 Basophils # (Auto) 0.1 TH/MM3 0.1 TH/MM3 CBC Comment AUTO DIFF DIFF FINAL Differential Total Cells 100 Counted Neutrophils % (Manual) 67 % Band Neutrophils % 11 % Lymphocytes % 11 % Monocytes % 11 % Neutrophils # (Manual) 17.3 TH/MM3 Nucleated Red Blood Cells 1 /100 WBC Differential Comment FINAL DIFF MANUAL Platelet Estimate NORMAL Platelet Morphology Comment NORMAL Target Cells 1+ Ovalocytes 1+ Laboratory Tests Test 10/27/16 10/27/16 10/28/16 04:40 22:36 04:09 Sodium Level 138 MEQ/L 137 MEQ/L Potassium Level 4.7 MEQ/L 3.7 MEQ/L Chloride Level 103 MEQ/L 99 MEQ/L Carbon Dioxide Level 25.7 MEQ/L 28.6 MEQ/L Anion Gap 9 MEQ/L 9 MEQ/L Blood Urea Nitrogen 29 MG/DL 28 MG/DL Creatinine 1.17 MG/DL 1.27 MG/DL Estimat Glomerular Filtration 62 ML/MIN 56 ML/MIN Rate Random Glucose 89 MG/DL 197 MG/DL Calcium Level 8.4 MG/DL 7.8 MG/DL Magnesium Level 2.6 MG/DL Lactic Acid Level 2.7 mmol/L Microbiology Date/Time Procedure Status Source Growth 10/26/16 11:05 Aerobic Blood Culture - Preliminary Resulted Blood Peripheral NO GROWTH IN 2 DAYS 10/26/16 11:05 Anaerobic Blood Culture - Preliminary Resulted Blood Peripheral NO GROWTH IN 2 DAYS 10/26/16 11:10 Aerobic Blood Culture - Preliminary Resulted Blood Peripheral NO GROWTH IN 2 DAYS 10/26/16 11:10 Anaerobic Blood Culture - Preliminary Resulted Blood Peripheral NO GROWTH IN 2 DAYS 10/26/16 23:40 Legionella Antigen Received Urine Clean Catch Pending 10/26/16 23:40 Streptococcus pneumoniae Antigen (M Received Urine Clean Catch Pending 10/27/16 23:40 Legionella Antigen Received Urine Clean Catch Pending 10/27/16 23:40 Streptococcus pneumoniae Antigen (M Received Urine Clean Catch Pending 10/27/16 23:40 Urine Culture Received Urine Catheterized Urine Pending 10/28/16 07:00 Gram Stain Received Sputum Expectorated Sputum Pending 10/28/16 07:00 Sputum Culture Received Sputum Expectorated Sputum Pending Imaging Last Impressions Chest X-Ray 10/27/16 0000 Signed Impressions: Service Date/Time: Thursday, October 27, 2016 13:28 - CONCLUSION: Interval placement of a right upper extremity PICC line which is in good position. No change in primary status with bilateral pulmonary infiltrates. Mikel Salinas MD Chest CT 10/27/16 0000 Signed Impressions: Service Date/Time: Thursday, October 27, 2016 13:54 - CONCLUSION: 1. Severe diffuse bilateral airspace consolidation and groundglass opacity with relatively sparing of the lung bases and subpleural regions bilaterally. There are associated small bilateral pleural effusions. These findings are stable compared to the recent chest x-rays but are new since 10/14/2016 and significantly increased compared to the 10/19/2016 chest x-ray. The imaging features are nonspecific but this could represent severe pulmonary edema in the appropriate clinical setting. ARDS or infection is also possible. 2. Nonacute findings include coronary artery calcification and 13 mm right thyroid nodule. Robert Kaplan MD Liver Ultrasound 10/25/16 0000 Signed Impressions: Service Date/Time: Tuesday, October 25, 2016 14:57 - CONCLUSION: No acute abnormality demonstrated. Please see above. Robert Moore MD Abdomen X-Ray 10/21/16 0000 Signed Impressions: Service Date/Time: Friday, October 21, 2016 18:53 - CONCLUSION: Nonspecific bowel gas pattern as above. Buster Grimes MD Lower Extremity Ultrasound 10/16/16 0000 Signed Impressions: Service Date/Time: Sunday, October 16, 2016 11:30 - CONCLUSION: Venous mapping as described above. Sloan Siegel MD FACR Carotid Artery Ultrasound 10/16/16 0000 Signed Impressions: Service Date/Time: Sunday, October 16, 2016 11:08 - CONCLUSION: Negative examination for a hemodynamically significant carotid stenosis. Sloan Siegel MD Physical Exam CONSTITUTIONAL/GENERAL: This is an adequately nourished patient, no distress. OOB in a chair TUBES/LINES/DRAINS: SKIN: No jaundice, rashes, or lesions. Skin temperature appropriate. Not diaphoretic. HEAD: Atraumatic. Normocephalic. EYES: Pupils equal and round and reactive. Extraocular motions intact. No scleral icterus. No injection or drainage. Fundi not examined. ENT: Hearing grossly normal. Nose without bleeding or purulent drainage. moist mucosae NECK: Trachea midline. Supple, nontender. CARDIOVASCULAR: Regular rate and rhythm without murmurs, gallops, or rubs. No JVD. Peripheral pulses symmetric. Surgical dressing in place RESPIRATORY/CHEST: Symmetric, unlabored respirations. Clear to auscultation. Breath sounds equal bilaterally. No wheezes, rales, or rhonchi. GASTROINTESTINAL: Abdomen soft, non-tender, nondistended. No hepato-splenomegaly , or palpable masses. No guarding. Bowel sounds present. GENITOURINARY: Without palpable bladder distension. Ramirez catheter in place with clear yellow urine MUSCULOSKELETAL: Extremities without clubbing, cyanosis resolved No edema. No joint tenderness or effusion noted. No calf tenderness. + mottling on the knees resolved LYMPHATICS: No palpable cervical or supraclavicular adenopathy. NEUROLOGICAL: Awake and alert. Motor and sensory grossly within normal limits. Follows commands. Normal speech Moves all extremities. Assessment & Plan Remarks sp CABG ?PNA vs pulm edema/ ARDS CHF Sepsis, lactic acidosis, leukocytosis present - fu sputum clx - will adjust abcx per clx reports - cont cefepime - cont vanco and levaquine - fu leg/pneumococcus and influneza dw Jackie Bello MD Oct 28, 2016 11:55
[2016-10-28] MEDS: LEVOFLOXACIN 750 MG PREMIX INJ 150 ML IV SCH (12:03)
[2016-10-28] MEDS: ENOXAPARIN SODIUM 40 MG/0.4 ML SYRINGE SQ SCH (12:03)
[2016-10-28] MEDS ORDERED: PHARMACY ORDERED LAB XX ONE (12:45)
[2016-10-28] MEDS: SENNOSIDES 8.6 MG TAB PO SCH (20:59)
[2016-10-29] MEDS: CEFEPIME INJ 2,000 MG in SODIUM CHLORIDE 0.9% INJ 100 ML IV SCH (00:32)
[2016-10-29] MEDS ORDERED: VANCOMYCIN 1,000 MG/NS 250 ML IV SCH ×2 (01:00)
[2016-10-29 03:00] VITALS: BP 102/58; PULSE 78; RESP 20; TEMP 97.1; O2SAT 99
[2016-10-29] MEDS: RESP: IPRATROPIUM 0.5 MG/2.5 ML NEB NEB SCH (04:27)
[2016-10-29 05:39] LABS: AUTOMATED NEUTROPHIL # 18.2 TH/MM3 (1.8-7.7); BASOPHIL % 0.3 % (0.0-2.0); HEMATOCRIT 31.6 % (39.0-51.0); HEMO FLAGS DIFF FINAL; LYMPH % 2.5 % (9.0-44.0); LYMPHOCYTE # 0.5 TH/MM3 (1.0-4.8); MEAN CORPUSCULAR HEMOGLOBIN 29.9 PG (27.0-34.0); MEAN CORPUSCULAR HGB CONC 33.2 % (32.0-36.0); MONO % 3.9 % (0.0-8.0); NEUT % 93.3 % (16.0-70.0); PLATELET COUNT 263 TH/MM3 (150-450); RED BLOOD COUNT 3.51 MIL/MM3 (4.50-5.90); RED CELL DISTRIBUTION WIDTH 14.3 % (11.6-17.2); WHITE BLOOD COUNT 19.5 TH/MM3 (4.0-11.0)
[2016-10-29 05:56] LABS: ALT (GPT) 102 U/L (12-78); ANION GAP 11 MEQ/L (5-15); AST (GOT) 64 U/L (15-37); BICARBONATE 30.6 MEQ/L (21.0-32.0); BLOOD UREA NITROGEN 31 MG/DL (7-18); CHLORIDE 96 MEQ/L (98-107); GLOMERULAR FILTRATION RATE 51 ML/MIN (>89); MAGNESIUM 2.5 MG/DL (1.5-2.5); POTASSIUM 3.5 MEQ/L (3.5-5.1); SODIUM (NA) 138 MEQ/L (136-145)
[2016-10-29 05:59] LABS: ALKALINE PHOSPHATASE 142 U/L (45-117); TOTAL BILIRUBIN ADULT 0.8 MG/DL (0.2-1.0)
[2016-10-29] MEDS: PANTOPRAZOLE SOD 40 MG DELAYED RELEASE TAB PO SCH (06:25)
[2016-10-29] MEDS: INSULIN ASPART SUPPLEMENTAL SCALE SQ SCH (06:25)
--- NOTE | 2016-10-29 06:47 | RADRPT ---
EXAM DATE/TIME: 10/29/2016 04:55 [facility] COMPARISON: CHEST SINGLE AP, October 27, 2016, 13:28. INDICATIONS : Shortness of breath, possible pulmonary disease. MEDICAL HISTORY : Cardiovascular disease. SURGICAL HISTORY : Coronary artery stent. CABG. ENCOUNTER: Subsequent ACUITY: 1 week PAIN SCORE: 3/10 LOCATION: Bilateral chest FINDINGS: Going catheter tip projects over the cavoatrial junction. Diffuse non-consolidative airspace opaciti es sparing the apices and bases of both lungs is stable in severity. The heart is normal size. Evid ence of prior median sternotomy. CONCLUSION: Diffuse bilateral air space opacities, stable in severity. Mike Melton MD on October 29, 2016 at 6:44 Board Certified Radiologist. This report was verified electronically.
[2016-10-29 07:00] VITALS: BP 94/56; PULSE 76; RESP 24; TEMP 97; O2SAT 94
[2016-10-29] MEDS ORDERED: EPINEPHrine HCL (1:10,000) 1 MG/10 ML SYRINGE ONE (08:47)
--- NOTE | 2016-10-29 09:21 | DEATH SUM ---
Pronouncement Date Pronounced : Oct 29, 2016 Time Of : 08:54 Pronouncement Responded to "CODE BLUE. CPR and ACLS protocol initiated. After 35 minutes of unsuccessful resuscitation patient pronounce . Identified patient as Du Stovall with wrist band MR# [id number]. Patient with no cardiac activity in 2 separate leads and no palpable/auscible cardiac activity. Patient with no spontaneous respirations, no corneal reflex or response to painful stimuli. Pupils fixed and dilated. Preliminary Cause of : Cardiac arrest Bassem Pal MD Oct 29, 2016 09:21
--- NOTE | 2016-10-29 09:25 | HHI.DS ---
Summary Note Date of : Oct 29, 2016 Time Of : 08:54 Admission Date Oct 14, 2016 at 23:07 Admitting Diagnosis NSTEMI Diagnosis at Time of : (1) NSTEMI (non-ST elevated myocardial infarction) ICD Code: I21.4 Diagnosis: Principal (2) Dehydration ICD Code: E86.0 (3) HTN (hypertension) ICD Code: I10 (4) DM (diabetes mellitus) ICD Code: E11.9 Diagnosis: Principal (5) HCAP (healthcare-associated pneumonia) ICD Code: J18.9 Brief History This is a 71-year-old male with a PMH of Hyperlipidemia, CAD s/p Stent 2005, Peripheral Neuropathy and DM who is brought to the ER with acute onset of chest pain during his afternoon walk. States he's had intermittent chest pain for approx 1-2 months, however chest pain today was more intense. On arrival, BP 161/85, HR 88, O2 sat 99% on RA, Afebrile. CBC essentially unremarkable. BUN 20, GFR 57, BS 219. Troponin 0.32, EKG with no acute changes. CXR with no acute findings. Dr. Beyer consulted by ER physician, recommended Heparin and Aggrastat gtt and will eval in am. Pt currently chest pain free. CBC/BMP: 10/29/16 0510 10/29/16 0510 Significant Findings Laboratory Tests Test 10/27/16 10/27/16 10/27/16 10/27/16 04:40 08:23 22:36 23:40 White Blood Count 22.2 TH/MM3 (4.0-11.0) Red Blood Count 3.73 MIL/MM3 (4.50-5.90) Hemoglobin 11.2 GM/DL (13.0-17.0) Hematocrit 33.3 % (39.0-51.0) Mean Platelet Volume 6.6 FL (7.0-11.0) Neutrophils (%) (Auto) 93.6 % (16.0-70.0) Lymphocytes (%) (Auto) 3.7 % (9.0-44.0) Neutrophils # (Auto) 20.8 TH/MM3 (1.8-7.7) Lymphocytes # (Auto) 0.8 TH/MM3 (1.0-4.8) Band Neutrophils % 11 % (0-6) Monocytes % 11 % (0-8) Neutrophils # (Manual) 17.3 TH/MM3 (1.8-7.7) Nucleated Red Blood Cells 1 /100 WBC (0-0) Target Cells 1+ (NORMAL) Ovalocytes 1+ (NORMAL) Blood Urea Nitrogen 29 MG/DL (7-18) Estimat Glomerular Filtration 62 ML/MIN (>89) Rate Calcium Level 8.4 MG/DL (8.5-10.1) Magnesium Level 2.6 MG/DL (1.5-2.5) Blood Gas HCO3 21 mmol/L (22-26) Blood Gas Base Excess -2.1 mmol/L (-2-2) Blood Gas Oxygen Saturation 85 % (90-100) Arterial Blood pH 7.49 (7.380-7.420) Arterial Blood Partial 28 mmHg (38-42) Pressure CO2 Arterial Blood Partial 55 mmHg Pressure O2 (61-120) Blood Gas Hemoglobin 11.5 G/DL (12.0-16.0) Lactic Acid Level 2.7 mmol/L (0.4-2.0) Urine Occult Blood TRACE (NEG) Urine Leukocyte Esterase MOD (NEG) Urine RBC 5 /hpf (0-3) Urine WBC 21 /hpf (0-5) Urine WBC Clumps OCC (NONE) Urine Bacteria FEW /hpf (NONE) Urine Mucus FEW /lpf (OCC) Test 10/28/16 10/28/16 10/28/16 10/29/16 04:09 08:58 13:30 05:10 Blood Urea Nitrogen 28 MG/DL (7-18) 31 MG/DL (7-18) Estimat Glomerular Filtration 56 ML/MIN (>89) 51 ML/MIN (>89) Rate Random Glucose 197 MG/DL 184 MG/DL (74-106) (74-106) Calcium Level 7.8 MG/DL 7.8 MG/DL (8.5-10.1) (8.5-10.1) White Blood Count 18.9 TH/MM3 19.5 TH/MM3 (4.0-11.0) (4.0-11.0) Red Blood Count 3.65 MIL/MM3 3.51 MIL/MM3 (4.50-5.90) (4.50-5.90) Hemoglobin 11.0 GM/DL 10.5 GM/DL (13.0-17.0) (13.0-17.0) Hematocrit 32.3 % 31.6 % (39.0-51.0) (39.0-51.0) Mean Platelet Volume 6.8 FL (7.0-11.0) Neutrophils (%) (Auto) 93.1 % 93.3 % (16.0-70.0) (16.0-70.0) Lymphocytes (%) (Auto) 2.7 % 2.5 % (9.0-44.0) (9.0-44.0) Neutrophils # (Auto) 17.6 TH/MM3 18.2 TH/MM3 (1.8-7.7) (1.8-7.7) Lymphocytes # (Auto) 0.5 TH/MM3 0.5 TH/MM3 (1.0-4.8) (1.0-4.8) Vancomycin Level Trough 20.0 MCG/ML (5.0-10.0) Chloride Level 96 MEQ/L (98-107) Creatinine 1.37 MG/DL (0.60-1.30) Aspartate Amino Transf 64 U/L (15-37) (AST/SGOT) Alanine Aminotransferase 102 U/L (12-78) (ALT/SGPT) Alkaline Phosphatase 142 U/L (45-117) Total Protein 5.7 GM/DL (6.4-8.2) Albumin 2.1 GM/DL (3.4-5.0) Imaging Last 24 hours Impressions Chest X-Ray 10/27/16 Signed Impressions: Service Date/Time: Thursday, October 27, 2016 13:28 - CONCLUSION: Interval placement of a right upper extremity PICC line which is in good position. No change in primary status with bilateral pulmonary infiltrates. Mikel Salinas MD Chest X-Ray 10/27/16 Signed Impressions: Service Date/Time: Thursday, October 27, 2016 07:51 - CONCLUSION: Stable chest x-ray with severe relatively diffuse bilateral airspace consolidation. There is trace pleural fluid on the right. Robert Kaplan MD Chest CT 10/27/16 0000 Signed Impressions: Service Date/Time: Thursday, October 27, 2016 13:54 - CONCLUSION: 1. Severe diffuse bilateral airspace consolidation and groundglass opacity with relatively sparing of the lung bases and subpleural regions bilaterally. There are associated small bilateral pleural effusions. These findings are stable compared to the recent chest x-rays but are new since 10/14/2016 and significantly increased compared to the 10/19/2016 chest x-ray. The imaging features are nonspecific but this could represent severe pulmonary edema in the appropriate clinical setting. ARDS or infection is also possible. 2. Nonacute findings include coronary artery calcification and 13 mm right thyroid nodule. Robert Kaplan MD Hospital Course 71-year-old gentleman who presented to [facility] with non-STEMI. Hospital course was complicated prior surgery with community-acquired pneumonia he was treated with antibiotics and surgery was postponed. When he was medically optimized from respiratory point for CABG surgery he underwent procedure. Postsurgical course is complicated with hypotension and dyspnea. Patient's ejection fraction on last echo is still 15%. Critical care medicine was consulted for assistance with medical management RESPIRATORY distress and pneumonia, fluid overload and congestive heart failure. On October 29 shortly after 8:00 patient suddenly suffered bradycardia followed by cardiac arrest. After 35 minutes of ACLS protocol there was no spontaneous circulation and no respiratory effort. Patient was pronounced at 854. Patient's notified by phone. Bassem Pal MD Oct 29, 2016 09:25
[2016-10-29] MEDS ORDERED: AMIODARONE HCL 150 MG/3 ML VIAL IV ONE (12:52)
--- NOTE | 2016-10-29 17:10 | PD.PROCEDR ---
Procedure Note Procedure Endotracheal Intubation Diagnosis: Cardiac arrest Indications: Cardiac arrest with active ACLS Consent: Consent is deemed emergent or medically necessary Anesthesia: None Description of the Procedure: Active CPR was in process. Pre-oxygenation was performed using a bag-valve- mask. A Barrera #2 was used for laryngoscopy and a Grade I view was obtained. A 8.5 cuffed endotracheal tube was inserted atraumatically through the vocal cords. Confirmation of correct endotracheal tube placement was made by equal and bilateral breath sounds and colorimetric CO2 detection. The endotracheal tube was secured at 23 cm at the teeth. There were no immediate complications noted. Active CPR continued. There was no interruption of CPR for the intubation. I personally performed the procedure. Brandon Lazo MD Oct 29, 2016 17:10
[2016-10-30] MEDS ORDERED: PHARMACY ORDERED LAB XX ONE (12:45)
== END 2016-10-29 12:53 | disposition expired | DRG 233 ==
LOC: NEPC 20:07 → NEDA 23:07 → HCIN 10-15 01:12 → HCPC 10-15 22:00 → HCVR 10-22 18:31 → HCIN 10-25 10:51 → HCVR 10-26 12:36
PROVIDERS: ADMIT Hospitalist; ATTEND Internal Medicine Critical Care Medicine
PROC: 4A023N7 Measurement of Cardiac Sampling and Pressure, Left Heart, Percutaneous Approach (ICD-10-PCS; 2016-10-15)
PROC: B2111ZZ Fluoroscopy of Multiple Coronary Arteries using Low Osmolar Contrast (ICD-10-PCS; 2016-10-15)
PROC: B2151ZZ Fluoroscopy of Left Heart using Low Osmolar Contrast (ICD-10-PCS; 2016-10-15)
PROC: 021009W Bypass Coronary Artery, One Artery from Aorta with Autologous Venous Tissue, Open Approach (ICD-10-PCS; 2016-10-23)
PROC: 06BP4ZZ Excision of Right Saphenous Vein, Percutaneous Endoscopic Approach (ICD-10-PCS; 2016-10-23)
PROC: B246ZZ4 Ultrasonography of Right and Left Heart, Transesophageal (ICD-10-PCS; 2016-10-23)
PROC: 02100Z9 Bypass Coronary Artery, One Artery from Left Internal Mammary, Open Approach (ICD-10-PCS; principal; 2016-10-23 07:02)
PROC: 02HV33Z Insertion of Infusion Device into Superior Vena Cava, Percutaneous Approach (ICD-10-PCS; 2016-10-27)
PROC: 0BH18EZ Insertion of Endotracheal Airway into Trachea, Via Natural or Artificial Opening Endoscopic (ICD-10-PCS; 2016-10-29)
DX: I21.4 Non-ST elevation (NSTEMI) myocardial infarction (principal); J18.9 Pneumonia, unspecified organism; J96.90 Respiratory failure, unspecified, unspecified whether with hypoxia or hypercapnia; A41.9 Sepsis, unspecified organism; I50.21 Acute systolic (congestive) heart failure; I95.9 Hypotension, unspecified; N17.9 Acute kidney failure, unspecified; E87.2 Acidosis; T82.855A Stenosis of coronary artery stent, initial encounter; E86.0 Dehydration; E11.42 Type 2 diabetes mellitus with diabetic polyneuropathy; I10 Essential (primary) hypertension; E78.2 Mixed hyperlipidemia; I25.5 Ischemic cardiomyopathy; I25.10 Atherosclerotic heart disease of native coronary artery without angina pectoris; I25.2 Old myocardial infarction; Y95 Nosocomial condition; Z87.891 Personal history of nicotine dependence
CPT/HCPCS: 31500; 36569; 36600; 71010; 71020; 71250; 74000; 76705; 76937; 80048; 80053; 80061; 80074; 80076; 80202; 81001; 82550; 82552; 82805; 82948; 83036; 83605; 83735; 83880; 84100; 84484; 85007; 85014; 85018; 85025; 85027; 85610; 85730; 86038; 86256; 86850; 86900; 86901; 86920; 87040; 87070; 87086; 87205; 87449; 87641; 87804; 92950; 93005; 93306; 93318; 93458; 93880; 93970; 93998; 94002; 94010; 94150; 94640; 94664; 94667; 94668; 96361; 96374; 96375; C1768; C1769; C1893; J0131; J0171; J0282; J0456; J0461; J0690; J0692; J0696; J1250; J1642; J1644; J1650; J1815; J1940; J1956; J2250; J2270; J2370; J2405; J2440; J2543; J2720; J2765; J2920; J3010; J3246; J3370; J3475; J3480; J7030; J7040; J7050; J7060; J7120; J7644; P9045; Q9967